=== PATIENT | female | born 1945 | race Caucasian/White ===

== ENCOUNTER 2024-03-13 08:39 | Outpatient (AMB) | payer OTHER, SELFPAY ==
[2024-03-13 08:50] VITALS: BP 122/74; PULSE 67; O2SAT 98; BMI 32.3
--- NOTE | 2024-03-13 08:50 | MHC.OFFVIS ---
Vital Signs 03/13/24 08:50 Height 5 ft Weight 165 lb 9.074 oz BMI 32.3 BP 122/74 Blood Pressure Location Lt brachial Position Sitting Pulse 67 Pulse Source Pulse Oximeter Pulse Oximetry (%) 98 Oxygen Delivery Method Room Air Intake Visit Reasons: Arthritis/cm Intake Note: Patient presents today for bone density results. She is hoping for cortisone shots for both knees. Allergies Penicillins Allergy (Mild, Verified 03/13/24 08:55) Hives codeine Adverse Reaction (Mild, Verified 03/13/24 08:55) dry heaves HPI HPI Arthritis/cm: Details: She had about 5 months of benefit with last Euflexxa injection from October. She has about 2 and half months benefit with cortisone injections. She completed her last evenity dose 1 week ago. She continues to take calcium and vitamin-D daily. Review of Systems Const All systems reviewed & are unremarkable except as noted in HPI and below Physical Exam Vital Signs: Last Vital Signs Pulse 67 03/13/24 08:50 BP 122/74 03/13/24 08:50 Pulse Ox 98 03/13/24 08:50 Oxygen Delivery Method Room Air 03/13/24 08:50 BMI result Body Mass Index 32.3 Const Other: General: Comfortable CVS: RRR Respiratory: clear to auscultation bilaterally. Good respiratory effort Skin: No lesions seen MSK: Nontender bilateral knees. Limited full flexion. Assessment & Plan Assessment & Plan (1) Osteoporosis: Comment: History of fragility fracture with L1 compression fracture 12/21/2021 on L-spine x-ray. Evenity started 02/20/2023, she received half dose 07/22/2023 as patient revealed she may have had a gum abscess during administration of 1st injection, she resumed full dose Evenity 08/21/2023 and completed 12th dose 03/22/2024. Code(s): M81.0 - Age-related osteoporosis without current pathological fracture Category: Medical Qualifiers: Osteoporosis type: age-related Presence of current pathological fracture: with current pathological fracture Encounter type: subsequent encounter Fracture healing: with routine healing Qualified Code(s): M80.00XD - Age-related osteoporosis with current pathological fracture, unspecified site, subsequent encounter for fracture with routine healing Plan: DEXA due April 2024. Ordered at [facility] [place] Continue calcium and vitamin-D supplement Labs to assess bone turnover markers, calcium, and vitamin-D level ordered (2) Other half-way (current) drug therapy: Comment: Evenity Code(s): Z79.899 - Other half-way (current) drug therapy Category: Medical Plan: See above (3) Osteoarthritis of knees, bilateral: Comment: She has had benefit of 5 months with last Euflexxa injection given 09/21/2023-10/04/2023. Previously has had multiple cortisone injections but benefit only last 2 and half months. Code(s): M17.0 - Bilateral primary osteoarthritis of knee Category: Medical Qualifiers: Osteoarthritis type: primary Qualified Code(s): M17.0 - Bilateral primary osteoarthritis of knee Plan: [place] Euflexxa bilateral knees Return to clinic in April for 3 consecutive weekly visits for Euflexxa injection She will call office if she needs appointment sooner Orders: Orders Vitamin D 25-OH Total Today M81.0 - Age-related osteoporosis without current pathological fracture, Z79.899 - Other half-way (current) drug therapy Alanine Aminotransferase Today M81.0 - Age-related osteoporosis without current pathological fracture, Z79.899 - Other half-way (current) drug therapy Alkaline Phosphatase Bone Today M80.00XD - Age-related osteoporosis with current pathological fracture, unspecified site, subsequent encounter for fracture with routine healing Calcium Today M80.00XD - Age-related osteoporosis with current pathological fracture, unspecified site, subsequent encounter for fracture with routine healing Albumin Level Today M80.00XD - Age-related osteoporosis with current pathological fracture, unspecified site, subsequent encounter for fracture with routine healing XR DEXA axial skeleton Today M81.0 - Age-related osteoporosis without current pathological fracture, Z79.899 - Other sat act instructor (current) drug therapy Collagen Type I C-Telopeptide Today M81.0 - Age-related osteoporosis without current pathological fracture, Z79.899 - Other sat act instructor (current) drug therapy Creatinine Today M81.0 - Age-related osteoporosis without current pathological fracture, Z79.899 - Other half-way (current) drug therapy Aspartate Amino Transferase Today M81.0 - Age-related osteoporosis without current pathological fracture, Z79.899 - Other sat act instructor (current) drug therapy Coding Level of Care Code Est Pt Level 3 (04589) Complex EM visit Add On G2211 Diagnoses Age-related osteoporosis with current pathological fracture with routine healing, subsequent encounter M80.00XD Osteoporosis type: age-related Presence of current pathological fracture: with current pathological fracture Encounter type: subsequent encounter Fracture healing: with routine healing Other sat act instructor (current) drug therapy Z79.899 Primary osteoarthritis of both knees M17.0 Osteoarthritis type: primary
--- OUTSIDE RECORDS SUMMARY | 2024-03-13 23:03 | XMS_ITS | Patient Health Record ---
Author Organization [facility] Address [address] [place] [address] Care Team Providers Care Packer Denture Name Role Phone Caron Macias Primary Care Provider Irina Vazquez Unavailable [phone] Allergies Allergen (clinical drug ingredient) Drug/Non Drug Allergy documented on EMR Reaction Allergy Type Onset Date Status Penicillin hives Drug Allergy Active codeine Codeine nausea Drug Allergy Active Reason For Referral No Information Medications Medication SIG (Take, Route, Frequency, Duration) Notes Start Date End Date Status Clotrimazole-Betamethasone 1-0.05 % 1 application Externally Twice a day Active Soolantra 1 % 1 application Mapping Editor ally Once a day Active Levothyroxine Sodium 50 mg 1 tablet Once a day Active Social History Tobacco Use: Social History Observation Description Date Details (start date - stop date) Never Smoker NA - NA Tobacco Use/Smoking Question Answer Notes Are you a: nonsmoker Alcohol Screen Question Answer Notes Did you have a drink containing alcohol in the p ast year? Yes Points 0 Interpretation Negative Tobacco use other than smoking: Question Answer Notes Are you an other tobacco user? No Problems Problem Type SNOMED Code ICD Code Onset Dates Problem Status W/U Status Risk Notes Problem Acquired hammer toe of right foot (9989305542646166) Other hammer toe(s) (acquired), right foot (M20.41) Active confirmed Problem Acquired hammer toe of left foot (7228980756133377) Other hammer toe(s) (acquired), left foot (M20.42) Active confirmed Problem Localized, primary osteoarthritis of the ankle and/or foot (729838477) Primary osteoarthrit is, right ankle and foot (M19.071) Active confirmed Problem Localized, primary osteoarthritis of the ankle and/or foot (760736460) Primary osteoarthrit is, left ankle and foot (M19.072) Active confirmed Plan Of Treatment No Information Insurance Providers Payer Name Payer Address Payer Phone Subscriber Number Group Number Insured Name Patient Relationship to Insured Coverage Start Date Coverage End Date Medicare National [employer] [address] [place] [address] [id number] Nita Mcfarlane Self - patient is the insured [facility] [address] [facility] [place] [address] [id number] Nita Mcfarlane Self - patient is the insured Medical (General) History Medical History History ICD Code Anxiety Arthritis Thyroid disorder Measles Mumps Chicken pox Cataracts Depression Surgical History Surgery Date(Month/Year) Tubligation 1999 cataract surgery 10/2019
== END 2024-03-13 09:37 | disposition home or self-care (01) ==
PROVIDERS: PCP Internal Medicine; Visit Provider Internal Medicine Rheumatology
DX: M80.00XD Age-related osteoporosis with current pathological fracture, unspecified site, subsequent encounter for fracture with routine healing (principal); Z79.899 Other long term (current) drug therapy; M17.0 Bilateral primary osteoarthritis of knee
CPT/HCPCS: 99213

== ENCOUNTER 2024-03-18 11:29 | Outpatient (REF) | payer MEDICARE, OTHER, SELFPAY ==
[2024-03-18 13:27] LABS: Alanine Aminotransferase 10 U/L (0-31); Albumin Level 4.3 g/dL (3.5-5.0); Aspartate Amino Transferase 22 U/L (5-31); Calcium 9.4 mg/dL (8.4-10.2); Estimated Glomerular Filt Rate > 60
[2024-03-18 13:33] LABS: Vitamin D 25-OH Total 53.2 ng/mL (>30)
[2024-03-21 14:08] LABS: Alkaline Phosphatase Bone 12.7 mcg/L (see note)
== END 2024-03-18 11:30 | disposition home or self-care (01) ==
LOC: HO.LAB 11:29
PROVIDERS: PCP Internal Medicine; Visit Provider Internal Medicine Rheumatology
DX: M80.00XD Age-related osteoporosis with current pathological fracture, unspecified site, subsequent encounter for fracture with routine healing (principal); Z79.899 Other long term (current) drug therapy
CPT/HCPCS: 36415; 82040; 82306; 82310; 82565; 84075; 84450; 84460

== ENCOUNTER 2024-04-09 12:31 | Outpatient (AMB) | payer MEDICARE, OTHER, SELFPAY ==
--- NOTE | 2024-04-09 12:43 | A.OFFVIS_ITS ---
Vital Signs 04/09/24 12:44 Height 5 ft Weight 162 lb 8 oz BMI 31.7 BP 114/74 Blood Pressure Location Lt brachial Position Sitting Pulse 69 Pulse Source Pulse Oximeter Pulse Oximetry (%) 95 Oxygen Delivery Method Room Air Intake Visit Reasons: injection-euflexxa Intake Note: Stated that she did not complete one test( has to be done 8-10 am only) Allergies Penicillins Allergy (Mild, Verified 04/09/24 12:47) Hives codeine Adverse Reaction (Mild, Verified 04/09/24 12:47) dry heaves HPI HPI injection-euflexxa: Details: Pain is uncontrolled. Review of Systems Const All systems reviewed & are unremarkable except as noted in HPI and below Physical Exam Vital Signs: Last Vital Signs Pulse 69 04/09/24 12:44 BP 114/74 04/09/24 12:44 Pulse Ox 95 04/09/24 12:44 Oxygen Delivery Method Room Air 04/09/24 12:44 BMI result Body Mass Index 31.7 Const Other: General: Comfortable CVS: RRR Respiratory: clear to auscultation bilaterally. Good respiratory effort Skin: No lesions seen MSK: Nontender bilateral knees. Limited full flexion. Office Procedures AMB Joint Injection/Aspiration Joint Injection/Aspiration Details: Euflexxa right knee Prep: site was prepped using aseptic technique Procedure: The patient tolerated the procedure well Coding 71571 - Bilateral Large Joint Procedure code (CPT) selection complete AMB Joint Injection/Aspiration Joint Injection/Aspiration Details: Euflexxa left knee Prep: site was prepped using aseptic technique Procedure: The patient tolerated the procedure well Coding 75598 - Bilateral Large Joint Procedure code (CPT) selection complete Office Meds lidocaine (PF) 10 mg/mL (1 %) injection solution Performing Provider: Maximino Kirk MD Performing Location: [facility] [place] [facility] Documented (not given) by: Maximino Kirk MD on 04/09/24 13:31 Reason Not Given: Not Medically Necessary Euflexxa 10 mg/mL (mw 2.4-3.6 million) intra-articular syringe Performing Provider: Maximino Kirk MD Performing Location: [facility] [place] [facility] Administered by: Maximino Kirk MD on 04/09/24 13:31 Dose Route Admin Location Dispensed Lot Number Expiration Date [facility] [employer] 20 mg intra-articular 2 mL X [id number] lidocaine (PF) 10 mg/mL (1 %) injection solution Performing Provider: Maximino Kirk MD Performing Location: [facility] [place] [facility] Documented (not given) by: Maximino Kirk MD on 04/09/24 13:31 Reason Not Given: Not Medically Necessary Euflexxa 10 mg/mL (mw 2.4-3.6 million) intra-articular syringe Performing Provider: Maximino Kirk MD Performing Location: [facility] [place] [facility] Administered by: Maximino Kirk MD on 04/09/24 13:31 Dose Route Admin Location Dispensed Lot Number Expiration Date [place] [employer] 20 mg intra-articular 2 mL X [id number] Assessment & Plan Assessment & Plan (1) Osteoarthritis of knees, bilateral: Comment: Pain is uncontrolled. Euflexxa bilateral knees 1. Is due today Code(s): M17.0 - Bilateral primary osteoarthritis of knee Category: Medical Qualifiers: Osteoarthritis type: primary Qualified Code(s): M17.0 - Bilateral primary osteoarthritis of knee Plan: Return to clinic next week for bilateral knee Euflexxa 2. Injection Orders: Orders AMB Joint Injection/Aspiration Today M17.0 - Bilateral primary osteoarthritis of knee AMB Joint Injection/Aspiration Today M17.0 - Bilateral primary osteoarthritis of knee Medications: New lidocaine (PF) 10 mg Infiltration ONCE 1 mL 0RF M17.0 - Bilateral primary osteoarthritis of knee Euflexxa (sodium hyaluronate (viscosup)) 20 mg (2 mL) intra-articular ONCE 2 mL 0RF NS M17.0 - Bilateral primary osteoarthritis of knee Euflexxa (sodium hyaluronate (viscosup)) 20 mg (2 mL) intra-articular ONCE 2 mL 0RF NS M17.0 - Bilateral primary osteoarthritis of knee lidocaine (PF) 10 mg Infiltration ONCE 1 mL 0RF M17.0 - Bilateral primary osteoarthritis of knee Coding Level of Care Code Est Pt Level 3 (32598) Complex EM visit Add On G2211 Diagnoses Primary osteoarthritis of both knees M17.0 Osteoarthritis type: primary CPT Codes Coding - 97942 - Bilateral Large Joint: 45236 - Bilateral Large Joint ([id number]) Coding - 81253 - Bilateral Large Joint: 20314 - Bilateral Large Joint ([id number])
[2024-04-09 12:44] VITALS: BP 114/74; PULSE 69; O2SAT 95; BMI 31.7
== END 2024-04-09 13:27 | disposition home or self-care (01) ==
PROVIDERS: PCP Internal Medicine; Visit Provider Internal Medicine Rheumatology
DX: M17.0 Bilateral primary osteoarthritis of knee (principal)
CPT/HCPCS: 20610; 99213; G2211

== ENCOUNTER → 2024-04-09 12:31 | Outpatient (BNVA) | payer MEDICARE, OTHER, SELFPAY | PROVIDERS: PCP Internal Medicine; Visit Provider Internal Medicine Rheumatology | DX: M17.0 Bilateral primary osteoarthritis of knee (principal) | CPT/HCPCS: 20610; 99212; J7323 ==

== ENCOUNTER 2024-04-16 14:30 | Outpatient (AMB) | payer MEDICARE, OTHER, SELFPAY ==
[2024-04-16 14:49] VITALS: BP 116/72; PULSE 68; O2SAT 98; BMI 31.8
--- NOTE | 2024-04-16 14:49 | A.OFFVIS_ITS ---
Vital Signs 04/16/24 14:49 Height 5 ft Weight 163 lb BMI 31.8 BP 116/72 Blood Pressure Location Lt brachial Position Sitting Pulse 68 Pulse Source Pulse Oximeter Pulse Oximetry (%) 98 Oxygen Delivery Method Room Air Intake Visit Reasons: Injection-euflexxa Intake Note: Patient presents for Euflexxa injection. Allergies Penicillins Allergy (Mild, Verified 04/16/24 14:50) Hives codeine Adverse Reaction (Mild, Verified 04/16/24 14:50) dry heaves HPI HPI Injection-euflexxa: Details: She feels well. Review of Systems Const All systems reviewed & are unremarkable except as noted in HPI and below Physical Exam Vital Signs: Last Vital Signs Pulse 68 04/16/24 14:49 BP 116/72 04/16/24 14:49 Pulse Ox 98 04/16/24 14:49 Oxygen Delivery Method Room Air 04/16/24 14:49 BMI result Body Mass Index 31.8 Const Other: General: Comfortable CVS: RRR Respiratory: clear to auscultation bilaterally. Good respiratory effort Skin: No lesions seen MSK: Nontender bilateral knees. Limited full flexion. Office Procedures AMB Joint Injection/Aspiration Joint Injection/Aspiration Details: Left knee joint Prep: site was prepped using aseptic technique Injected: Euflexxa was injected with 25 gauge 1-1/2 inch needle Procedure: The patient tolerated the procedure well. Postprocedure protocol was discussed with patient. Coding 71379 - Bilateral Large Joint Procedure code (CPT) selection complete AMB Joint Injection/Aspiration Joint Injection/Aspiration Details: Right knee joint Prep: site was prepped using aseptic technique Injected: Euflexxa was injected with 25 gauge 1-1/2 inch needle Procedure: The patient tolerated the procedure well. Postprocedure protocol was discussed with patient. Coding 54937 - Bilateral Large Joint Procedure code (CPT) selection complete Office Meds lidocaine (PF) 10 mg/mL (1 %) injection solution Performing Provider: Maximino Kirk MD Performing Location: [facility] [place] [facility] Documented (not given) by: Maximino Kirk MD on 04/16/24 16:02 Reason Not Given: Not Medically Necessary Euflexxa 10 mg/mL (mw 2.4-3.6 million) intra-articular syringe Performing Provider: Maximino Kirk MD Performing Location: [facility] [place] [facility] Administered by: Maximino Kirk MD on 04/16/24 16:02 Dose Route Admin Location Dispensed Lot Number Expiration Date [facility] [employer] 20 mg intra-articular 2 mL X [id number] lidocaine (PF) 10 mg/mL (1 %) injection solution Performing Provider: Maximino Kirk MD Performing Location: [facility] [place] [facility] Documented (not given) by: Maximino Kirk MD on 04/16/24 16:02 Reason Not Given: Not Medically Necessary Euflexxa 10 mg/mL (mw 2.4-3.6 million) intra-articular syringe Performing Provider: Maximino Kirk MD Performing Location: [facility] [place] [facility] Administered by: Maximino Kirk MD on 04/16/24 16:02 Dose Route Admin Location Dispensed Lot Number Expiration Date [facility] [employer] 20 mg intra-articular 2 mL [id number] Assessment & Plan Assessment & Plan (1) Osteoarthritis of knees, bilateral: Comment: Pain is uncontrolled. Euflexxa bilateral knees No. 2 Code(s): M17.0 - Bilateral primary osteoarthritis of knee Category: Medical Qualifiers: Osteoarthritis type: primary Qualified Code(s): M17.0 - Bilateral primary osteoarthritis of knee Plan: Return to clinic next week for bilateral knee Euflexxa No. 3 Orders: Orders AMB Joint Injection/Aspiration Today M17.0 - Bilateral primary osteoarthritis of knee AMB Joint Injection/Aspiration Today M17.0 - Bilateral primary osteoarthritis of knee Medications: New Euflexxa (sodium hyaluronate (viscosup)) 20 mg (2 mL) intra-articular ONCE 2 mL 0RF NS M17.0 - Bilateral primary osteoarthritis of knee lidocaine (PF) 10 mg Infiltration ONCE 1 mL 0RF M17.0 - Bilateral primary osteoarthritis of knee Euflexxa (sodium hyaluronate (viscosup)) 20 mg (2 mL) intra-articular ONCE 2 mL 0RF NS M17.0 - Bilateral primary osteoarthritis of knee lidocaine (PF) 10 mg Infiltration ONCE 1 mL 0RF M17.0 - Bilateral primary osteoarthritis of knee Coding Level of Care Code Est Pt Level 3 (27410) Complex EM visit Add On G2211 Diagnoses Primary osteoarthritis of both knees M17.0 Osteoarthritis type: primary CPT Codes Coding - 63624 - Bilateral Large Joint: 01361 - Bilateral Large Joint ([id number]) Coding - 10185 - Bilateral Large Joint: 13364 - Bilateral Large Joint ([id number])
== END 2024-04-16 15:25 | disposition home or self-care (01) ==
PROVIDERS: PCP Internal Medicine; Visit Provider Internal Medicine Rheumatology
DX: M17.0 Bilateral primary osteoarthritis of knee (principal)
CPT/HCPCS: 20610; 99213; G2211

== ENCOUNTER → 2024-04-16 14:30 | Outpatient (BNVA) | payer MEDICARE, OTHER, SELFPAY | PROVIDERS: PCP Internal Medicine; Visit Provider Internal Medicine Rheumatology | DX: M17.0 Bilateral primary osteoarthritis of knee (principal) | CPT/HCPCS: 20610; 99212; J7323 ==

== ENCOUNTER 2024-04-23 14:25 | Outpatient (AMB) | payer MEDICARE, OTHER, SELFPAY ==
--- NOTE | 2024-04-23 14:27 | A.OFFVIS_ITS ---
Vital Signs 04/23/24 14:29 Height 5 ft Weight 158 lb 9 oz BMI 31.0 BP 120/72 Blood Pressure Location Lt brachial Position Sitting Pulse 71 Pulse Source Pulse Oximeter Pulse Oximetry (%) 97 Oxygen Delivery Method Room Air Intake Visit Reasons: Injection-euflexxa Intake Note: Patient presents for 3rd Euflexxa injection. Allergies Penicillins Allergy (Mild, Verified 04/23/24 14:41) Hives codeine Adverse Reaction (Mild, Verified 04/23/24 14:41) dry heaves HPI HPI Injection-euflexxa: Details: She is doing well with intermittent knee pain. Review of Systems Const All systems reviewed & are unremarkable except as noted in HPI and below Physical Exam Vital Signs: Last Vital Signs Pulse 71 04/23/24 14:29 BP 120/72 04/23/24 14:29 Pulse Ox 97 04/23/24 14:29 Oxygen Delivery Method Room Air 04/23/24 14:29 BMI result Body Mass Index 31.0 Const Other: General: Comfortable Skin: No lesions seen MSK: Nontender bilateral knees. Limited full flexion. Office Procedures AMB Joint Injection/Aspiration Joint Injection/Aspiration Details: Bilateral knees Prep: site was prepped using aseptic technique Injected: Euflexxa 20 mg was injected into each knee using 25 gauge 1-1/2 inch needle Procedure: The patient tolerated the procedure well. Postprocedure protocol was discussed with patient. Coding 08449 - Bilateral Large Joint Procedure code (CPT) selection complete AMB Joint Injection/Aspiration Coding 57789 - Bilateral Large Joint Procedure code (CPT) selection complete Office Meds lidocaine (PF) 10 mg/mL (1 %) injection solution Performing Provider: Maximino Kirk MD Performing Location: [facility] [place] [facility] Documented (not given) by: Maximino Kirk MD on 04/23/24 15:14 Reason Not Given: Not Medically Necessary Euflexxa 10 mg/mL (mw 2.4-3.6 million) intra-articular syringe Performing Provider: Maximino Kirk MD Performing Location: [facility] [place] [facility] Administered by: Maximino Kirk MD on 04/23/24 15:14 Dose Route Admin Location Dispensed Lot Number Expiration Date [employer] 20 mg intra-articular 2 mL [id number] lidocaine (PF) 10 mg/mL (1 %) injection solution Performing Provider: Maximino Kirk MD Performing Location: [facility] [place] [facility] Documented (not given) by: Maximino Kirk MD on 04/23/24 15:14 Reason Not Given: Not Medically Necessary Euflexxa 10 mg/mL (mw 2.4-3.6 million) intra-articular syringe Performing Provider: Maximino Kirk MD Performing Location: [facility] [place] [facility] Administered by: Maximino Kirk MD on 04/23/24 15:14 Dose Route Admin Location Dispensed Lot Number Expiration Date [facility] [employer] 20 mg intra-articular 2 mL [id number] Assessment & Plan Assessment & Plan (1) Osteoarthritis of knees, bilateral: Comment: Pain is uncontrolled. Euflexxa bilateral knees No. 3 Code(s): M17.0 - Bilateral primary osteoarthritis of knee Category: Medical Qualifiers: Osteoarthritis type: primary Qualified Code(s): M17.0 - Bilateral primary osteoarthritis of knee Plan: Patient received bilateral Euflexxa injections to knees Requesting [facility] of [facility] bilateral [facility] (2) Osteoporosis: Comment: History of fragility fracture with L1 compression fracture 12/21/2021 on L-spine x-ray. Evenity started 02/20/2023, she received half dose 07/22/2023 as patient revealed she may have had a gum abscess during administration of 1st injection, she resumed full dose Evenity 08/21/2023 and completed 12th dose 03/22/2024. Code(s): M81.0 - Age-related osteoporosis without current pathological fracture Category: Medical Qualifiers: Osteoporosis type: age-related Presence of current pathological fracture: with current pathological fracture Encounter type: subsequent encounter Fracture healing: with routine healing Qualified Code(s): M80.00XD - Age-related osteoporosis with current pathological fracture, unspecified site, subsequent encounter for fracture with routine healing Plan: She will be having bone density next Monday She will be going to lab to have labs done to assess bone turnover markers this week Return to clinic in 1 month to discuss results and next steps with treatment for osteoporosis Orders: Orders AMB Joint Injection/Aspiration Today M17.0 - Bilateral primary osteoarthritis of knee AMB Joint Injection/Aspiration Today M17.0 - Bilateral primary osteoarthritis of knee Coding Level of Care Code Est Pt Level 3 (63932) Complex EM visit Add On G2211 Diagnoses Primary osteoarthritis of both knees M17.0 Osteoarthritis type: primary Age-related osteoporosis with current pathological fracture with routine healing, subsequent encounter M80.00XD Osteoporosis type: age-related Presence of current pathological fracture: with current pathological fracture Encounter type: subsequent encounter Fracture healing: with routine healing CPT Codes Coding - 87109 - Bilateral Large Joint: 40742 - Bilateral Large Joint ([id number]) Coding - 02339 - Bilateral Large Joint: 15821 - Bilateral Large Joint ([id number])
[2024-04-23 14:29] VITALS: BP 120/72; PULSE 71; O2SAT 97; BMI 31.0
--- OUTSIDE RECORDS SUMMARY | 2024-04-23 16:26 | XMS_ITS | Encounter Summary ---
Author Organization [facility] Address [phone] [address] [place] [address] Care Team Providers Care Digital Watch Assembler Name Role Phone Giles Cassidy MD Unavailable Maximino Kirk MD Unavailable Unavaila Melissa Bourne MD Primary Care Provider [phone] Encounter Details Date Type Department Care Team (Late st Contact Info) Description 03/23/2024 Orders Only [facility] [address] [place] [address] [place] [address] Provider, MD [facility] [place] [id number] Social History Tobacco Use Types Packs/Day Years Used Date Smoking Tobacco: Never Passive Smoke Exposure: Past Smokeless Tobacco: Never Comments:secondhand smoke at home currently-not since divorce 08/30/22 Alcohol Use Standard Drinks/Week Comments Yes 0 (1 standard drink = 0.6 oz pur e alcohol) 1-2 drinks, monthly or less Education Answer Date Recorded Are you interested in more education? Not on ghanshyam e 07/29/2022 Are you concerned about learning? Not on file 07/29/2022 No 07/29/2022 No 07/29/2022 Digital Access Answer Date Recorded No 08/29/2022 No 08/29/2022 Reliable internet access at home? Not on file 08/29/2022 Device with a working camera? Not on file Intimate Partner Violence Answer Date R ecorded Denied Basic Needs Not on file 04/28/2023 In the past 12 months have y ou been in a relationship with a person who hurts, threatens, or tries to control you? No 04/28/2023 Worried food would run out Not on file 04/28 In the past 12 months have y ou been in a relationship with a person who hurts, threatens, or tries to control you? No 04/28/2023 Sex and Gender Information Value Date Recorded Sex Assigned at Not on file Gender Identity Not on file Sexual Orientation Not on file documented as of this encounter Plan of Treatment Upcoming Encounters Date Type Department Care Team (Late st Contact Info) Description 01/30/2024 Procedure Pass [address] [place] [address] 05/06/2024 10:45 AM EST Office Visit [facility] [address] [place] [address] [place] [address] Melissa Mendoza MD [address] [place] [address] [email or web address] 07/12/2024 10:15 AM EDT Appointment [address] [place] [address] Melissa Mendoza MD [address] [place] [address] [place] [address] [email or web address] documented as of this encounter Procedures Procedure Name Priority Date/Time Associated Diagnosis Comments OUTSIDE LAB Routine 03/23/2024 12:53 PM EST documented in this encounter Results * Outside Lab (03/23/2024 12:53 PM EST) Historical Provider LAB BLOOD ORDERAB LES documented in this encounter Visit Diagnoses Not on filedocumented in this encounter Additional Health Concerns Assessment Noted Time PHQ-2 Depression Total Score: 0 07/14/19 24 1:53 PM EDT documented as of this encounter Care Teams Digital Watch Assembler Relationship Specialty Start Date End Date Melissa Mendoza MD [address] [place] [address] [place] [address] [email or web address] PCP - General Internal Medicine 06/07/23 Giles Cassidy MD [address] [place] [address] [email or web address] Insurance Assigned Provider 07/08/23 Maximino Kirk MD [address] [place] [address] Rheumatology 06/08/22 documented as of this encounter Additional Source Comments The information contained in this document represents components of the legal health record. It is not the complete legal health record.[facility]
--- OUTSIDE RECORDS SUMMARY | 2024-04-23 16:26 | XMS_ITS | Encounter Summary ---
Author Organization [facility] Address [phone] [place] [address] Care Team Providers Care Advisor Consultant Name Role Phone Margareth Hollins FULLING MACHINE OPERATOR Unavailable [phone] LindyMargareth mcgregor Nkechi FULLING MACHINE OPERATOR Primary Care Provider Giles Cassidy MD Unavailable [phone] Maximino Kirk MD Unavailable Unavaila Magalie Pearson MEDICAL HEALTH RESEARCHER Primary Care Provider Melissa Mendoza MD Primary Care Provider [phone] Encounter Details Date Type Department Care Team (Late st Contact Info) Description 02/08/2021 Procedure Pass [address] [place] [address] Social History Tobacco Use Types Packs/Day Years Used Date Smoking Tobacco: Never Smokeless Tobacco: Never Comments:secondhand smoke at home currently Sex and Gender Information Value Date Recorded Sex Assigned at Not on file Gender Identity Not on file Sexual Orientation Not on file documented as of this encounter Plan of Treatment Upcoming Encounters Date Type Department Care Team (Late st Contact Info) Description 01/30/2024 Procedure Pass [address] [place] [address] 05/06/2024 10:45 AM EST Office Visit [facility] [address] [place] [address] [place] [address] Melissa Mendoza MD [address] [address] 07/12/2024 10:15 AM EDT Appointment [address] [place] [address] Melissa Mendoza MD [address] [place] [address] [email or web address] documented as of this encounter Visit Diagnoses Not on filedocumented in this encounter Additional Health Concerns Infection Onset Date Last Indicated Resolved Time COVID-19 04/01/2023 04/01/2023 04/22/2023 1:21 AM EST Assessment Noted Time PHQ-2 Depression Total Score: 0 02/09/20 9:51 AM EST documented as of this encounter Care Teams Advisor Consultant Relationship Specialty Start Date End Date Margareth Hollins CNP [address] [place] [address] PCP - General Internal Medicine 07/03/20 12/05/22 Magalie Villatoro NP [address] [place] [address] PCP - General Family Medicine 12/06/22 06/06/23 Melissa Mendoza MD [address] [place] [address] PCP - General Internal Medicine 06/07/23 Margareth Hollins CNP [address] [place] [address] Internal Medicine 07/03/20 06/07/22 Giles Cassidy MD [address] [place] [address] [email or web address] Insurance Assigned Provider 07/08/23 Maximino Kirk MD [address] [place] [address] Rheumatology 06/08/22 documented as of this encounter Additional Source Comments The information contained in this document represents components of the legal health record. It is not the complete legal health record.[facility]
--- OUTSIDE RECORDS SUMMARY | 2024-04-23 16:26 | XMS_ITS | Clinical Summary ---
Author Organization [facility] Address [phone] [address] [place] [address] Care Team Providers Care Health Unit Supervisor Name Role Phone Giles Cassidy MD Unavailable [phone] Maximino Kirk MD Unavailable Unavaila Melissa Bourne MD Primary Care Provider [phone] Allergies Active Allergy Reactions Criticality Noted Date Comments Codeine High 08/07/2020 Lactose 12/15/2021 Penicillins Rash High 08/07/2020 Medications Medication Sig Dispensed Refills Start Date End Date Status acetaminophen (TYLENOL ARTHRITIS PAIN ORAL) Take 1 tablet by mouth 2 (two) times a day as needed. Active romosozumab-aqqg (EVENITY SUBQ) 2 shots/month 02/15/2023 Active CALCIUM ORAL Take by mouth. Active ascorbic acid (VITAMIN C ORAL) Take by mouth. Active levothyroxine (SYNTHROID, LEVOTHROID) 50 MCG tabletIndications:Hypo thyroidism, unspecified type Take 1 tablet (50 mcg total) by mouth daily. 90 tablet 3 07/25/2023 Active Active Problems Problem Noted Date Diagnosed Date Hypopigmented skin lesion 05/04/2023 Sprain of lumbosacral joint or ligament 06/11/19 Assessment & Plan (06/10/2022 1:44 PM EST): If needed we can send her to physical therapy but she already has exercises from the previous compression fracture where she went to physical therapy. She continued ducked those exercises and that should promote improvement heat or cold packs 20 minutes on 10 minutes off and we will switch out Aleve to 20 mg OTC for meloxicam 7.5 mg p.o. daily for 30 days and a refill. Age-related osteoporosis wit hout current pathological fracture 02/10/2022 Assessment & Plan (02/11/2022 5:41 AM EST): Discussed management including regular physical activity, healthy diet, vitamin D supplementation. Will check DEXA with arthritis treatment center. She continues to be mindful with walking, balance, lifting. B12 deficiency 02/10/2022 Assessment & Plan (02/11/2022 5:40 AM EST): Continue supplementation Notalgia 12/15/2021 Compression of lumbar vertebra 12/15/2021 Assessment & Plan (12/16/2021 7:20 AM EDT): New Compression Fx Extensive education done today regarding Risks, care, treatment Start PT Continue MAT prn Left sided sciatica 12/15/2021 Assessment & Plan (12/16/2021 7:17 AM EDT): New sxs since last visit MRI reviewed, no overt sig nerve compression But + edema around lumbar vertebral body Will have her start PT and see how she does Vitamin D deficiency 12/15/2021 Assessment & Plan (02/11/2022 5:40 AM EST): Check serum level Assessment & Plan (12/16/2021 7:16 AM EDT): educ regarding importance of Vitamin D and Calcium in prevention of osteoporosis Continue daily dosing Acute stress reaction 12/01/2021 Assessment & Plan (12/01/2021 6:18 PM EDT): Stressed due to getting a divorce from her Doesn't really have anyone to help her Hearing loss of right ear due to cerumen impacti on 10/30/2020 Assessment & Plan (10/30/2020 2:55 PM EDT): Otoscope introduced prior to irrigation canal completely occluded with dry cerumen. Patient's permission small tube inserted into the ear canal right-sided and application of 60 to 70 cc of water/hydrogen peroxide applied to the ear until large scales of cerumen came forth. Patient stated that her hearing improved suddenly there was less pressure within the ear. It was still feeling a little bit raw and the now cleared out ear canal did look a little bit more red than it should have. Patient instructed to take the Cortisporin attic and use it twice daily for the next 5 days. The cortisone will take down inflammation. Inflammation of right ear canal 10/30/2020 Hyperlipidemia 09/02/2020 Assessment & Plan (02/11/2022 5:40 AM EST): Continue balanced diet, regular physical activity Anxiety and depression 09/02/2020 Atrophic vaginitis 09/02/2020 Rosacea 09/02/2020 Osteoarthritis of knee 09/02/2020 Diverticulosis 09/02/2020 Other specified hypothyroidism 08/07/2020 Assessment & Plan (02/11/2022 5:40 AM EST): Check labs Lactose intolerance Resolved Problems Problem Noted Date Diagnosed Date Resolved Date Acute low back pain 12/01/2021 02/12/20 Assessment & Plan (12/01/2021 6:17 PM EDT): Unclear etiology Symptoms, including pain persisting ? Compression fx vs. Herniated disc vs. Other No overt focal neurological deficits Check xrays to r/o compression fx Trial Medrol given persistant pain Continue Tylenol Tramadol for severe pain Risks/benefits of therapy explained, including MAT and other treatment options. Patient verbalized understanding and agreement of the above Osteopenia 02/11/2022 Assessment & Plan (12/16/2021 7:19 AM EDT): Given new compression fracture Will need to check bone density Reviewed outside bone density report from 02/2020 today during visit + ostepenia when last checked educ patient re wt bearing exercise, vit d and calcium Ordered Bone density for Feb 2022 Encounters Date Type Department Care Team Description 03/23/2024 Orders Only [facility] [address] [place] [address] Dr [place]ñas, [place] [address] Jeffery Mulligan MD 03/20/2024 Orders Only [facility] [address] [place] [address] [address] [place] [address] Jeffery Mulligan MD 01/30/2024 Transcribe Orders Virtual Department [address] [place] [address] Melissa Mendoza MD Breast screening (Primary Dx) from Last 3 Months Immunizations Name Administration Dates Next Due COVID-19 (Pre-01/23) Moderna Vaccine, mRNA, PF 05/10/2021,04/12/2021 Influenza High-Dose Quadriva lent Preservative Free IM 01/07/2020 Influenza High-Dose Trivalen t Preservative Free IM 12/26/2018,12/25/2017,12/23/2016,12/17,12/15/2014 Influenza Quadrivalent Adjuv anted Preservative Free IM 01/12/2022 Influenza Quadrivalent MDCK Preservative Free IM 01/30/2023 Influenza Quadrivalent Prese rvative Free IM 02/08/2021 Influenza Trivalent Preserva tive Free IM 03/25/2013,04/12/2012 Influenza Trivalent w/ Preservative IM 1 04/03/2013,02/21/2011,04/09/2010,12/29 Influenza, Unspecified Formulation 01/12,01/30/2008,02/20/2003,03/21 Novel [id number], Injectable 03/25/2009 Pneumococcal conjugate PCV13 12/15/2014 Pneumococcal polysaccharide PPSV23 04/30/2010 Td (adult) 5 Lf Tetanus Toxo id, PF, Adsorbed 08/01/2012 Td, unspecified formulation 07/10/2002 Zoster live 01/29/2007 Zoster recombinant 04/11/2018,02/08/2018 Family History Medical History Relation Comments Heart attack Father Kidney disease Father Dementia Mother Hypertension Mother Colon cancer Nephew Liver cancer Nephew Lung cancer Nephew Arrhythmia Sister Atrial fibrillation Sister Hyperlipidemia Sister Coronary artery disease Son 1 Hypertension Son 1 Overweight Son 1 Relation Status Comments Father (Age 70) Mother (Age 96) Nephew Alive Sister Alive Son 1 Alive Son 2 Alive Social History Tobacco Use Types Packs/Day Years [...] on file Sexual Orientation Not on file Last Filed Vital Signs Vital Sign Reading Time Taken Comments Blood Pressure 122/64 07/14/2023 2:27 PM EDT Pulse 65 07/14/2023 2:27 PM EDT Temperature 36.1 ??C (96.9 ??F) 07/14/2023 2:27 PM ED T Respiratory Rate 16 05/04/2023 9:08 AM EST Oxygen Saturation 97% 07/14/2023 2:27 PM EDT Inhaled Oxygen Concentration - - Weight 72.1 kg (159 lb) 07/14/2023 2:27 PM EDT Height 159 cm (5' 2.6 ) 07/14/2023 2:27 PM EDT Body Mass Index 28.53 07/14/2023 2:27 PM EDT Plan of Treatment Upcoming Encounters Date Type Department Care Team (Late st Contact Info) Description 01/30/[address] [facility] - [address] [place] [address] 05/06/2024 10:45 AM EST Office Visit [facility] [address] [place] [address] Dr Dueñas, [place] [address] Melissa Mendoza MD [address] [place] [address], [address] [place] [address] [email or web address] 07/12/2024 10:15 AM EDT Appointment [address] Dueñas, [place] [address] Melissa Mendoza MD [address] [place] [address], [address] [place] [address] [email or web address] Health Maintenance Due Date Last Done Comments HEPATITIS B SCREENING 1963 RSV VACCINE (1 - 1-dose 75+ series) 08/12/2019 Adult Td,Tdap Booster 08/01/2022 08/01/2012, 003 INFLUENZA VACCINE (#1) 2023 , 01/30/2023, 01/12/2022, Additional history exists COVID-19 VACCINE ( season) 2023 05/10/2021, 04/12/2021 TSH LEVEL 05/04/2024 05/04/2023, 02/01, 06/15/2021, Additional history exists DEPRESSION SCREENING 07/13/2024 07/14/2023 LIPID PANEL 02/14/2027 02/14/2022, 02/01, 02/18/2021, Additional history exists PNEUMOCOCCAL VACCINES (50+ years) Completed 12/15/2014, 04/30/2010 ZOSTER VACCINES Completed 04/11/2018, 11/2017, 01/29/2007 OSTEOPOROSIS SCREENING INITIAL (ONE-TIME) Completed 02/25/2020 HEPATITIS C SCREENING Completed 05/04/2023 SMOKING STATUS SCREENING (Once After 26 Yrs) Completed 07/14/2023 HEPATITIS A VACCINES Aged Out No long er eligible based on patient's age to complete this topic HEPATITIS B VACCINES Aged Out No long er eligible based on patient's age to complete this topic HIB VACCINES Aged Out No longer eligi ble based on patient's age to complete this topic MENINGOCOCCAL VACCINES (ACWY) Aged Out No longer eligible based on patient's age to complete this topic Medical Devices Not on file Procedures Procedure Name Priority Date/Time Associated Diagnosis Comments OUTSIDE LAB Routine 03/23/2024 12:53 PM EST OUTSIDE LAB Routine 03/20/2024 12:03 PM EST HEPATITIS C ANTIBODY, QUALITATIVE Routine 05/04/2023 10:22 AM EST Need for hepatitis C screening test TSH Routine 05/04/2023 10:22 AM EST Hypothyroidism, unspecified type LIPID PANEL Routine 02/14/2022 9:47 AM EST Mixed hyperlipidemia OUTSIDE BONE DENSITY SCREENING Routine 02/25/2020 from Last 3 Months or Most Recently Relevant to Health Maintenance Results * Outside Lab (03/23/2024 12:53 PM EST) Only the most recent of2 resultswithin the time period is included. Historical Provider LAB BLOOD ORDERAB LES * Hepatitis C antibody, qualitative (05/04/2023 10:22 AM EST) HCV NON-REACTIV E NON-REACTI VE [facility] Blood 05/04/2023 10:2 2 AM EST 05/04/2023 10:29 AM EST Magalie Villatoro NP LAB BLOOD ORDERABLES [facility] [address] [place] [address] * TSH (05/04/2023 10:22 AM EST) TSH 2.35 0.27 - 4.20 uIU/mL [facility] Blood 05/04/2023 10:2 2 AM EST 05/04/2023 10:29 AM EST Magalie L [place] HEAD COOK LAB BLOOD ORDERABLES Performing Organization Address [facility]/ZIP Co de Phone Number [address] [address] * (ABNORMAL) Lipid panel (02/14/2022 9:47 AM EST) HDL 64 mg/dL [facility] Comment: ? Interpretation <40 mg/dL: Low HDL cholesterol (major risk factor for CHD) Greater than or equal to 60 mg/dL: High HDL cholesterol ( negative risk factor for CHD) HDL - cholesterol is affected by a number of factors, e.g. smoking, excerise, hormones, sex and age. CHOLESTEROL 230 0 - 240 mg/dL [facility] TRIGLYCERIDES 72 30 - 160 mg/dL [facility] LDL 152(H) 50 - 129 mg/dL [facility] Comment: LDL levels in terms of risk for coronary heart disease: <100 mg/dL: Optimal 100-129 mg/dL: Near or above optimal 130-159 mg/dL: Borderline high 160-189 mg/dL: High >190 mg/dL: Very High CARDIAC RISK RATIO 3.6 3.3 - 4.4 [facility] Blood 02/14/2022 9:47 AM EST 02/14/2022 9:51 AM EST Margareth Hollins NON LINEAR EDITOR LAB BLOOD ORDE RABLES Performing Organization Address [facility] Co de Phone Number [address] [address] * OUTSIDE BONE DENSITY SCREENING (02/25/2020) BONE DENSITY SCREENING - EXTERNAL osteopenia Historical Provider MD VALENTINO Gallegos from Last 3 Months or Most Recently Relevant to Health Maintenance Care Teams Health Unit Supervisor Relationship Specialty Start Date End Date Melissa Mendoza MD [address] [place] [address], [address] [place] [address] [email or web address] PCP - General Internal Medicine 06/07/23 Giles Cassidy MD [address] [place] [address] [email or web address] Insurance Assigned Provider 07/08/23 Maximino Kirk MD [address] [place] [address] Rheumatology 06/08/22 Additional Source Comments The information contained in this document represents components of the legal health record. It is not the complete legal health record.[facility]
--- OUTSIDE RECORDS SUMMARY | 2024-04-23 16:26 | XMS_ITS | Encounter Summary ---
Author Organization [facility] Address [phone] [facility] [address] Care Team Providers Care Anhydrous Ammonia Production Supervisor Name Role Phone LindyMargareth mcgregor Nkechi NEO Unavailable Margareth Hollins RECORDING STUDIO INTERN Primary Care Provider Giles Cassidy MD Unavailable [phone] Maximino Kirk MD Unavailable Unavaila Maglaie Pearson NP Primary Care Provider Melissa Mendoza MD Primary Care Provider [phone] Encounter Details Date Type Department Care Team (Late st Contact Info) Description 02/07/2022 Procedure Pass [address] [place] [address] Social History Tobacco Use Types Packs/Day Years Used Date Smoking Tobacco: Never Smokeless Tobacco: Never Comments:secondhand smoke at home currently Alcohol Use Standard Drinks/Week Comments Yes 0 (1 standard drink = 0.6 oz pure alcohol) 2-3 x month, 2 glasses of wine per month while out dining Sex and Gender Information Value Date Recorded Sex Assigned at Not on file Gender Identity Not on file Sexual Orientation Not on file documented as of this encounter Plan of Treatment Upcoming Encounters Date Type Department Care Team (Late st Contact Info) Description 01/30/2024 Procedure Pass [address] [place] [address] 05/06/2024 10:45 AM EST Office Visit [facility] [address] [place] [address] Dr Dueñas, [place]Z [address] Melissa Mendoza MD [address] [place] [address], [address] [place] [address] [email or web address] 07/12/2024 10:15 AM EDT Appointment [address] [place] [address] Melissa Mendoza MD [address] [place] [address], [address] [place] [address] [email or web address] documented as of this encounter Visit Diagnoses Not on filedocumented in this encounter Additional Health Concerns Infection Onset Date Last Indicated Resolved Time COVID-19 04/01/2023 04/01/2023 04/22/2023 1:21 AM EST Assessment Noted Time PHQ-2 Depression Total Score: 1 02/09/20 22 9:36 AM EST documented as of this encounter Care Teams Anhydrous Ammonia Production Supervisor Relationship Specialty Start Date End Date Margareth Hollins CNP [address] [place] [address] [email or web address] PCP - General Internal Medicine 07/03/20 12/05/22 Magalie Villatoro NP [address] [place] [address] [email or web address] PCP - General Family Medicine 12/06/22 06/06/23 Melissa Mendoza MD [address] [place] [address] [email or web address] PCP - General Internal Medicine 06/07/23 Margareth Hollins CNP [address] [place] [address] [email or web address] 07/03/20 06/07/22 Giles Cassidy MD [address] [place] [address] [email or web address] Insurance Assigned Provider 07/08/23 Maximino Kirk MD [address] [place] [address] Rheumatology 06/08/22 documented as of this encounter Additional Source Comments The information contained in this document represents components of the legal health record. It is not the complete legal health record.[facility]
--- OUTSIDE RECORDS SUMMARY | 2024-04-23 16:26 | XMS_ITS | Encounter Summary ---
Author Organization [facility] Address [phone] [facility] [place] [address] Care Team Providers Care Gas Maker Helper Name Role Phone LindyMargareth [email or web address] Nkechi ENO Unavailable Margareth Hollins STUDIO HAND Primary Care Provider Giles Cassidy MD Unavailable Maximino Kirk MD Unavailable Unavaila Magalie Pearson NP Primary Care Provider Melissa Mendoza MD Primary Care Provider [phone] Encounter Details Date Type Department Care Team (Late st Contact Info) Description 12/06/2021 Procedure Pass [address] [place] [address] Social History Tobacco Use Types Packs/Day Years [...] st Contact Info) Description 01/30/2024 Procedure Pass [address] [place] [address] 05/06/2024 10:45 AM EST Office Visit [facility] [address] [place] [address] Dr Dueñas, CARLOZ [address] Melissa Mendoza MD [address] [place] [address], [address] [place] [address] [email or web address] 07/12/2024 10:15 AM EDT Appointment [address] Dueñ[place] [address] Melissa Mendoza MD [address] [place] [address], [address] [place] [address] [email or web address] documented as of this encounter Visit Diagnoses Not on filedocumented in this encounter Additional Health Concerns Infection Onset Date Last Indicated Resolved Time COVID-19 04/01/2023 04/01/2023 04/22/2023 1:21 AM EST Assessment Noted Time PHQ-2 Depression Total Score: 0 02/09/20 9:51 AM EST documented as of this encounter Care Teams Gas Maker Helper Relationship Specialty Start Date End Date Margareth Hollins CNP [address] [place] [address] [email or web address] PCP - General Internal Medicine 07/03/20 12/05/22 Magalie Villatoro NP [address] [place] [address] [email or web address] PCP - General Family Medicine 12/06/22 06/06/23 Melissa Mendoza MD [address] [place] [address] [email or web address] PCP - General Internal Medicine 06/07/23 Margareth Hollins CNP [address] [place] [address] [email or web address] 07/03/20 06/07/22 Giles Cassidy MD [address] [place] [address] [email or web address] Insurance Assigned Provider 07/08/23 Maximino Kirk MD [address] [place] [address] Rheumatology 06/08/22 documented as of this encounter Additional Source Comments The information contained in this document represents components of the legal health record. It is not the complete legal health record.[facility]
--- OUTSIDE RECORDS SUMMARY | 2024-04-23 16:26 | XMS_ITS | Encounter Summary ---
Author Organization [facility] Address [phone] [address] [place] [address] Care Team Providers Care Software Development Coordinator Name Role Phone Giles Cassidy MD Unavailable [phone] Maximino Kirk MD Unavailable Unavaila Magalie Pearson NP Primary Care Provider [phone] Melissa Mendoza MD Primary Care Provider [phone] Encounter Details Date Type Department Care Team (Late st Contact Info) Description 12/20/2022 Procedure Pass [facility] - [address] [place] [address] Social History Tobacco Use Types Packs/Day Years Used Date Smoking Tobacco: Never Passive Smoke Exposure: Past Smokeless Tobacco: Never Comments:secondhand smoke at home currently-not since divorce 08/30/22 Alcohol Use Standard Drinks/Week Comments Yes 0 (1 standard drink = 0.6 oz pure alcohol) 2-3 x month, 2 glasses of wine per month while out dining Education Answer Date Recorded Are you interested in more education? Not on ghanshyam e 07/29/2022 Are you concerned about learning? Not on file 07/29/2022 No 07/29/2022 No 07/29/2022 Digital Access Answer Date Recorded No 08/29/2022 No 08/29/2022 Reliable internet access at home? Not on file 08/29/2022 Device with a working camera? Not on file Sex and Gender Information Value Date Recorded Sex Assigned at Not on file Gender Identity Not on file Sexual Orientation Not on file documented as of this encounter Plan of Treatment Upcoming Encounters Date Type Department Care Team (Late st Contact Info) Description 01/30/2024 Procedure Pass [address] Dueñas [place] [address] 05/06/2024 10:45 AM EST Office Visit [facility] [address] [place] [address] Dr Duñeas [place] [address] Melissa Mendoza MD [address] [place] [address] [email or web address] 07/12/2024 10:15 AM EDT Appointment [address] Dueñas [place] [address] Melissa Mendoza MD [address] [place] [address] [email or web address] documented as of this encounter Visit Diagnoses Not on filedocumented in this encounter Additional Health Concerns Infection Onset Date Last Indicated Resolved Time COVID-19 04/01/2023 04/01/2023 04/22/2023 1:21 AM EST Assessment Noted Time PHQ-2 Depression Total Score: 1 02/09/20 22 9:36 AM EST documented as of this encounter Care Teams Software Development Coordinator Relationship Specialty Start Date End Date Magalie Villatoro NP [address] [place] [place] [address] PCP - General Family Medicine 12/06/22 06/06/23 Melissa Mendoza MD [address] [place] [address] PCP - General Internal Medicine 06/07/23 Giles Cassidy MD [address] [place] [address] [email or web address] Insurance Assigned Provider 07/08/23 Maximino Kirk MD [address] [place] [address] Rheumatology 06/08/22 documented as of this encounter Additional Source Comments The information contained in this document represents components of the legal health record. It is not the complete legal health record.[facility]
--- OUTSIDE RECORDS SUMMARY | 2024-04-23 16:26 | XMS_ITS | Encounter Summary ---
Author Organization [facility] Address [phone] [facility] [place] [address] Care Team Providers Care Supervisor Coil Winding Name Role Phone LindyMargareth mcgregor Nkechi NEO Unavailable Margareth Hollins APPLIQUE SEWER Primary Care Provider Giles Cassiyd MD Unavailable [phone] Maximino Kirk MD Unavailable Unavaila Magalie Pearson MILLINERY DESIGNER Primary Care Provider Melissa Mendoza MD Primary Care Provider [phone] Encounter Details Date Type Department Care Team (Late st Contact Info) Description 02/11/2021 Ancillary Orders [facility],Outside Imaging [address] [place] [address] System, Provider Not In, [facility] [address] [address] Social History Tobacco Use Types Packs/Day Years [...] st Contact Info) Description 01/30/2024 Procedure Pass [facility] - [address] [place] [address] 05/06/2024 10:45 AM EST Office Visit [facility] [address] [place] [address] [place] [address] Melissa Mendoza MD [address] [facility], [address] [place] [address] 07/12/2024 10:15 AM EDT Appointment [address] [place] [address] Melissa Mendoza MD [address] [facility], [address] [place] [address] [email or web address] documented as of this encounter Results * Mammogram Outside (No Interpretation) (01/20/2020 12:00 AM EDT) Narrative SYSTEMGENERATED, DOCUMENTATION - 02/11/2021 11:23 AM EST This study is for PACS storage only and not for interpretation. Provider Not In System PhD IMG OUTSIDE I MAGING W/OUT INTERPRETATION * Mammogram Outside (No Interpretation) (01/29/2018 12:00 AM EDT) Narrative SYSTEMGENERATED, DOCUMENTATION - 02/11/2021 11:22 AM EST This study is for PACS storage only and not for interpretation. Provider Not In System PhD IMG OUTSIDE I MAGING W/OUT INTERPRETATION * Mammogram Outside (No Interpretation) (12/23/2016 12:00 AM EDT) Narrative SYSTEMGENERATED, DOCUMENTATION - 02/11/2021 11:21 AM EST This study is for PACS storage only and not for interpretation. Provider Not In System PhD IMG OUTSIDE I MAGING W/OUT INTERPRETATION * Mammogram Outside (No Interpretation) (04/06/2015 12:00 AM EST) Narrative SYSTEMGENERATED, DOCUMENTATION - 02/11/2021 11:21 AM EST This study is for PACS storage only and not for interpretation. Provider Not In System PhD IMG OUTSIDE I MAGING W/OUT INTERPRETATION * Mammogram Outside (No Interpretation) (04/02/2014 12:00 AM EST) Narrative SYSTEMGENERATED, DOCUMENTATION - 02/11/2021 11:20 AM EST This study is for PACS storage only and not for interpretation. Provider Not In System PhD IMG OUTSIDE I MAGING W/OUT INTERPRETATION documented in this encounter Visit Diagnoses Not on filedocumented in this encounter Additional Health Concerns Infection Onset Date Last Indicated Resolved Time COVID-19 04/01/2023 04/01/2023 04/22/2023 1:21 AM EST Assessment Noted Time PHQ-2 Depression Total Score: 0 02/09/20 9:51 AM EST documented as of this encounter Care Teams Supervisor Coil Winding Relationship Specialty Start Date End Date Margareth Hollins CNP [address] [place] [address] [email or web address] PCP - General Internal Medicine 07/03/20 12/05/22 Magalie Villatoro NP [address] [place] [address] PCP - General Family Medicine 12/06/22 06/06/23 Melissa Mendoza MD [address] [place] [address], [address] [place] [address] PCP - General Internal Medicine 06/07/23 Margareth Hollins CNP [address] [place] [address] maria Internal Medicine 07/03/20 06/07/22 Giles Cassidy MD [address] [place], [place] [email or web address] Insurance Assigned Provider 07/08/23 Maximino iKrk MD [address] [place] [address] Rheumatology 06/08/22 documented as of this encounter Additional Source Comments The information contained in this document represents components of the legal health record. It is not the complete legal health record.[facility]
--- OUTSIDE RECORDS SUMMARY | 2024-04-23 16:26 | XMS_ITS | Encounter Summary ---
Author Organization [facility] Address [email or web address] [address] Care Team Providers Care Quality Control Inspector Heading Name Role Phone Giles Cassidy MD Unavailable Maximnio Kirk MD Unavailable Unavaila Melissa Bourne MD Primary Care Provider [phone] Encounter Details Date Type Department Care Team (Late st Contact Info) Description 03/20/2024 Orders Only [facility] [address] [place] [address] [place] [address] Provider, MD Jeffery [facility] [place] [phone] Social History Tobacco Use Types Packs/Day Years [...] st Contact Info) Description 01/30/2024 Procedure Pass [address] [place] [address] 05/06/2024 10:45 AM EST Office Visit [facility] [address] [place] [address] [place] [address] Melissa Mendoza MD [address] [place] [address] [email or web address] 07/12/2024 10:15 AM EDT Appointment [address] [place] [address] Melissa Mendoza MD [address] [place] [address] [place] [address] [email or web address] documented as of this encounter Procedures Procedure Name Priority Date/Time Associated Diagnosis Comments OUTSIDE LAB Routine 03/20/2024 12:03 PM EST documented in this encounter Results * Outside Lab (03/20/2024 12:03 PM EST) Historical Provider LAB BLOOD ORDERAB LES documented in this encounter Visit Diagnoses Not on filedocumented in this encounter Additional Health Concerns Assessment Noted Time PHQ-2 Depression Total Score: 0 07/14/19 24 1:53 PM EDT documented as of this encounter Care Teams Quality Control Inspector Heading Relationship Specialty Start Date End Date Melissa Mendoza MD [address] [place] [address] [place] [address] [email or web address] PCP - General Internal Medicine 06/07/23 Giles Cassidy MD [address] [place] [address] [email or web address] Insurance Assigned Provider 07/08/23 Maximino Kirk MD [address] [place] [address] Rheumatology 06/08/22 documented as of this encounter Additional Source Comments The information contained in this document represents components of the legal health record. It is not the complete legal health record.[facility]
--- OUTSIDE RECORDS SUMMARY | 2024-04-23 16:27 | XMS_ITS | Patient Health Record ---
Author Organization [facility] Address [address] [place] [address] Care Team Providers Care Labor Mediator Name Role Phone Caron Macias Primary Care Provider Irina Vazquez Unavailable [phone] Allergies Allergen (clinical drug ingredient) Drug/Non Drug Allergy documented on EMR Reaction Allergy Type Onset Date Status Penicillin hives Drug Allergy Active codeine Codeine nausea Drug Allergy Active Reason For Referral No Information Medications Medication SIG (Take, Route, Frequency, Duration) Notes Start Date End Date Status Clotrimazole-Betamethasone 1-0.05 % 1 application Externally Twice a day Active Soolantra 1 % 1 application Radiation Control Worker ally Once a day Active Levothyroxine Sodium [...] Problem Acquired hammer toe of right foot (6525150273284558) Other hammer toe(s) (acquired), right foot (M20.41) Active confirmed Problem Acquired hammer toe of left foot (2761981124234298) Other hammer toe(s) (acquired), left foot (M20.42) Active confirmed Problem Localized, primary osteoarthritis of the ankle and/or foot (060698208) Primary osteoarthrit is, right ankle and foot (M19.071) Active confirmed Problem Localized, primary osteoarthritis of the ankle and/or foot (019932139) Primary osteoarthrit is, left ankle and foot (M19.072) Active confirmed Plan Of Treatment No Information Insurance Providers Payer Name Payer Address Payer Phone Subscriber Number Group Number Insured Name Patient Relationship to Insured Coverage Start Date Coverage End Date Medicare National Govt Sv[employer] [address] [place] [address] [id number] Nita Mcfarlane Self - patient is the insured [facility] [address] [place] [address] [phone] [id number] Nita Mcfarlane Self - patient is the insured Medical (General) History Medical History History ICD Code Anxiety Arthritis Thyroid disorder Measles Mumps Chicken pox Cataracts Depression Surgical History Surgery Date(Month/Year) Tubligation 1999 cataract surgery 10/2019
== END 2024-04-23 15:15 | disposition home or self-care (01) ==
PROVIDERS: PCP Internal Medicine; Visit Provider Internal Medicine Rheumatology
DX: M17.0 Bilateral primary osteoarthritis of knee (principal); M80.00XD Age-related osteoporosis with current pathological fracture, unspecified site, subsequent encounter for fracture with routine healing
CPT/HCPCS: 20610; 99213; G2211

== ENCOUNTER → 2024-04-23 14:25 | Outpatient (BNVA) | payer MEDICARE, OTHER, SELFPAY | PROVIDERS: PCP Internal Medicine; Visit Provider Internal Medicine Rheumatology | DX: M17.0 Bilateral primary osteoarthritis of knee (principal); M80.00XD Age-related osteoporosis with current pathological fracture, unspecified site, subsequent encounter for fracture with routine healing; X58.XXXD Exposure to other specified factors, subsequent encounter | CPT/HCPCS: 20610; 99212; J7323 ==

== ENCOUNTER 2024-04-26 09:07 | Outpatient (REF) | payer MEDICARE, OTHER, SELFPAY ==
--- NOTE | ~2024-04-26 | MM_ITS ---
EXAMINATION: DXA BONE DENSITY AXIAL HISTORY: Estrogen deficiency TECHNIQUE: Insiders S.A. Dual energy absorptiometry (DEXA) of the lumbar spine, total left hip, and femoral neck was performed. COMPARISON: There are no prior studies for comparison. FINDINGS: The bone mineral density of the lumbar spine is 1.145 with a T-score of -0.3, and a Z-score of 1.1. The bone mineral density of the left total hip is 0.868 with a T-score of -1.1, and a Z-score of 0.6. The bone mineral density of the left femoral neck is 0.799 with a T-score of -1.7, and a Z-score of 0.1. MM/XR DEXA axial skeleton IMPRESSION: Based on bone mineral density, and according to World Health Organization (WHO) criteria, the diagnosis is consistent with osteopenia. All bone density values are in grams per centimeter squared (g/cm2). Statistically, 68% of repeat scans fall within 1 SD (+/- 0.010 g/cm2 for AP spine L1-L4) and 1 SD (+/- 0.012 g/cm2 for femur total) FRAX is a trademark of the [employer] [place] for Metabolic Bone Disease, a World Health Organization (WHO) Collaborating Center. Electronically signed by: Dominick Hernandez MD 05/06/2024 11:09 AM [facility]
[2024-05-01 21:49] LABS: Collagen Type I C-Telopeptide 475 pg/mL (see note)
== END 2024-04-26 09:08 | disposition home or self-care (01) ==
LOC: HO.MAMMO 09:07
PROVIDERS: PCP Internal Medicine; Visit Provider Internal Medicine Rheumatology
DX: M81.0 Age-related osteoporosis without current pathological fracture (principal); Z79.899 Other long term (current) drug therapy
CPT/HCPCS: 36415; 77080; 82523

== ENCOUNTER → 2024-04-26 09:36 | Outpatient (BNV) | payer MEDICARE, OTHER, SELFPAY | PROVIDERS: PCP Internal Medicine; Visit Provider Radiology Diagnostic Radiology | DX: E28.39 Other primary ovarian failure (principal) | CPT/HCPCS: 77080 ==

== ENCOUNTER 2024-05-14 13:14 | Outpatient (AMB) | payer MEDICARE, OTHER, SELFPAY ==
--- NOTE | 2024-05-14 13:20 | MHC.OFFVIS ---
Vital Signs 05/14/24 13:21 Height 5 ft Weight 168 lb 4 oz BMI 32.9 BP 118/74 Blood Pressure Location Lt brachial Position Sitting Pulse 73 Pulse Source Pulse Oximeter Pulse Oximetry (%) 98 Oxygen Delivery Method Room Air Intake Visit Reasons: 1 mo follow up Intake Note: Patient presents for follow up Allergies Penicillins Allergy (Mild, Verified 05/14/24 13:24) Hives codeine Adverse Reaction (Mild, Verified 05/14/24 13:24) dry heaves HPI HPI 1 mo follow up: Details: There is reduced pain but it has not been the same responses last Euflexxa injections. She has not been as mobile due to the cold weather. Increased stiffness and pain in the morning, which improves throughout the day. Denies any new plans for dental extractions/dental procedures. She continues to take calcium carbonate 500 mg daily and vitamin D3 75 mcg daily (3000IU daily). Review of Systems Const All systems reviewed & are unremarkable except as noted in HPI and below Physical Exam Vital Signs: Last Vital Signs Pulse 73 05/14/24 13:21 BP 118/74 05/14/24 13:21 Pulse Ox 98 05/14/24 13:21 Oxygen Delivery Method Room Air 05/14/24 13:21 BMI result Body Mass Index 32.9 Const Other: General: Comfortable Skin: No lesions seen MSK: Nontender bilateral knees. Limited full flexion. Good range of motion of cervical spine. Good lumbar flexion. Assessment & Plan Assessment & Plan (1) Osteoporosis: Comment: History of fragility fracture with L1 compression fracture 12/21/2021 on L-spine x-ray. Evenity started 02/20/2023, she received half dose 07/22/2023 as patient revealed she may have had a gum abscess during administration of 1st injection, she resumed full dose Evenity 08/21/2023 and completed 12th dose 03/22/2024. She recently had a bone density scan, which shows improvement in bone density and L-spine and left femoral neck compared to bone density from 04[facility]20[facility]. Reclast is indicated to consolidate improvement from anabolic agent Romosuzumab. We discussed risks and benefits of Reclast. I plan to give Reclast injection as soon as it is approved with repeat bone density a year from when last Reclast was administered to assess benefit. Due to potency of Reclast, she may be able to have a drug holiday after 1 Reclast dose with plan to monitor osteoporosis with bone density scans every 2 years if bone density after 1st Reclast dose show significant improvement of T-scores. Recent labs reviewed with patient from 03/2024. Code(s): M81.0 - Age-related osteoporosis without current pathological fracture Category: Medical Qualifiers: Osteoporosis type: age-related Presence of current pathological fracture: with current pathological fracture Encounter type: subsequent encounter Fracture healing: with routine healing Qualified Code(s): M80.00XD - Age-related osteoporosis with current pathological fracture, unspecified site, subsequent encounter for fracture with routine healing Plan: Reclast PA. she will be scheduled for Reclast infusion as soon as it is approved Continue calcium carbonate 500 mg daily Continue vitamin-D 75 mcg daily Encouraged weight-bearing exercises/regular exercise program 30 minutes a day Return to clinic in 3 months (2) Osteoarthritis of knees, bilateral: Comment: Pain has improved after Euflexxa injections Code(s): M17.0 - Bilateral primary osteoarthritis of knee Category: Medical Qualifiers: Osteoarthritis type: primary Qualified Code(s): M17.0 - Bilateral primary osteoarthritis of knee Plan: Encouraged regular exercise program. I encouraged her to go to the senior center and participate in classes regularly. Consider walking in the mall in the winter months. PT ordered for lower extremity strengthening with myofascial release, TENs unit trial and lower extremity strengthening program Return to clinic in 4 months Orders: Orders PT Evaluation and Treatment Today M17.0 - Bilateral primary osteoarthritis of knee Coding Level of Care Code Est Pt Level 4 (03934) Complex EM visit Add On G2211 Diagnoses Age-related osteoporosis with current pathological fracture with routine healing, subsequent encounter M80.00XD Osteoporosis type: age-related Presence of current pathological fracture: with current pathological fracture Encounter type: subsequent encounter Fracture healing: with routine healing Primary osteoarthritis of both knees M17.0 Osteoarthritis type: primary
[2024-05-14 13:21] VITALS: BP 118/74; PULSE 73; O2SAT 98; BMI 32.9
== END 2024-05-14 13:52 | disposition home or self-care (01) ==
PROVIDERS: PCP Internal Medicine; Visit Provider Internal Medicine Rheumatology
DX: M80.00XD Age-related osteoporosis with current pathological fracture, unspecified site, subsequent encounter for fracture with routine healing (principal); M17.0 Bilateral primary osteoarthritis of knee
CPT/HCPCS: 99214; G2211

== ENCOUNTER → 2024-05-14 13:14 | Outpatient (BNVA) | payer MEDICARE, OTHER, SELFPAY | PROVIDERS: PCP Internal Medicine; Visit Provider Internal Medicine Rheumatology | DX: M80.00XD Age-related osteoporosis with current pathological fracture, unspecified site, subsequent encounter for fracture with routine healing (principal); M17.0 Bilateral primary osteoarthritis of knee; X58.XXXD Exposure to other specified factors, subsequent encounter | CPT/HCPCS: 99212 ==

== ENCOUNTER 2024-06-11 09:13 | Outpatient (REF) | payer MEDICARE, OTHER, SELFPAY ==
--- OUTSIDE RECORDS SUMMARY | 2024-06-11 10:18 | XMS_ITS | Patient Health Record ---
Author Organization [facility] Address [address] [place] [address] Care Team Providers Care Merchandise Pickup/Receiving Associate Name Role Phone Caron Macias Primary Care Provider Irina Vazquez Unavailable [phone] Allergies Allergen (clinical drug ingredient) Drug/Non Drug Allergy documented on EMR Reaction Allergy Type Onset Date Status Penicillin hives Drug Allergy Active codeine Codeine nausea Drug Allergy Active Reason For Referral No Information Medications Medication SIG (Take, Route, Frequency, Duration) Notes Start Date End Date Status Clotrimazole-Betamethasone 1-0.05 % 1 application Externally Twice a day Active Soolantra 1 % 1 application Air Valve Mechanic ally Once a day Active Levothyroxine Sodium [...] Problem Acquired hammer toe of right foot (9535390888247292) Other hammer toe(s) (acquired), right foot (M20.41) Active confirmed Problem Acquired hammer toe of left foot (2378628594468051) Other hammer toe(s) (acquired), left foot (M20.42) Active confirmed Problem Localized, primary osteoarthritis of the ankle and/or foot (615262677) Primary osteoarthrit is, right ankle and foot (M19.071) Active confirmed Problem Localized, primary osteoarthritis of the ankle and/or foot (457411869) Primary osteoarthrit is, left ankle and foot (M19.072) Active confirmed Plan Of Treatment No Information Insurance Providers Payer Name Payer Address Payer Phone Subscriber Number Group Number Insured Name Patient Relationship to Insured Coverage Start Date Coverage End Date Medicare National Govt Svcs Inc [address] [place] [address] [id number] Nita Mcfarlane Self - patient is the insured [facility] [address] [place] [address] [phone] [id number] Nita Mcfarlane Self - patient is the insured Medical (General) History Medical History History ICD Code Anxiety Arthritis Thyroid disorder Measles Mumps Chicken pox Cataracts Depression Surgical History Surgery Date(Month/Year) Tubligation 1999 cataract surgery 10/2019
--- OUTSIDE RECORDS SUMMARY | 2024-06-11 10:18 | XMS_ITS | Encounter Summary ---
Author Organization [facility] Address [address] [facility] [address] [place] [address] Phone Care Team Providers Care Dot Etcher Name Role Phone Giles Cassidy MD Unavailable Maximino Kirk MD Unavailable Unavaila Melissa Bourne MD Primary Care Provider [phone] Reason for Referral * MRI/CAT Scan - Closed Specialty Diagnoses / Procedures Referred By Shruthi salmon Referred To Contact Radiology Diagnoses Memory loss Procedures MRI Brain Melissa Mendoza MD [address] [place] [address], [address] [place] [address] Email: [email or web address] Referral ID Status Reason Start Date Expiration Date Visits Re quested Visits Authorized [id number] Closed 05/06/2024 05/06/2025 1 1 Reason for Visit * MRI/CAT Scan - Closed Specialty Diagnoses / Procedures Referred By Shruthi salmon Referred To Contact Radiology Diagnoses Memory loss Procedures MRI Brain Melissa Mendoza MD [address] [place] [address], [address] [place] [address] Email: [email or web address] Referral ID Status Reason Start Date Expiration Date Visits Re quested Visits Authorized [id number] Closed 05/06/2024 05/06/2025 1 1 Encounter Details Date Type Department Care Team (Late st Contact Info) Description 06/10/2024 10:22 AM EDT - 06/10/2024 11:59 PM EDT Hospital Encounter [facility], [facility] - [address] [place], [place] [address] Melissa Mendoza MD [address] [place] [address] [email or web address] Arrived Discharge Disposition: Home or Self Care Social History Tobacco Use Types Packs/Day Years Used Date Smoking Tobacco: Never Passive Smoke Exposure: Past Smokeless Tobacco: Never Comments:secondhand smoke at home currently-not since divorce 08/30/22 Alcohol Use Standard Drinks/Week Comments Yes 0 (1 standard drink = 0.6 oz pur e alcohol) 1-2 drinks, monthly or less Child or Family Care Answer Date Record ed Do you have problems with on e of the following making it difficult for you to work, study, or receive health care? No 05/06/2024 Education Answer Date Recorded Are you interested in more education? Not on ghanshyam e 07/29/2022 Are you concerned about learning? Not on file 07/29/2022 No 07/29/2022 No 07/29/2022 Food Answer Date Recorded Within the past 6 months we worried whether our food would run out before we got money to buy more. Never True 05/06/2024 Within the past 6 months the food we bought just didn't last and we didn't have enough money to get more. Never True Residential Stability Answer Date Recor ded What is your housing situation today? I have breana maldonado 05/06/2024 How many times have you move d in the past 12 months? Zero (I did not move) 05/06/2024 Paying for Meds Answer Date Recorded Do you have trouble paying for medicines? No 05/06/2024 Paying Utility Bills Answer Date Record ed Do you have trouble paying your heating or elect ricity bill? No 05/06/2024 Transportation Answer Date Recorded Has the lack of transportati on kept you from medical appointments or from getting medications? No 05/06/2024 Digital Access Answer Date Recorded No 05/06/2024 Yes 05/06/2024 Do you have reliable internet access at home? Ye s 05/06/2024 Do you have a device (e.g., phone, tablet, computer) with a working camera? Yes 05/06/2024 Intimate Partner Violence Answer Date R ecorded Denied Basic Needs Not on file 05/06/2024 In the past 12 months have y ou been in a relationship with a person who hurts, threatens, or tries to control you? No 05/06/2024 Worried food would run out Not on file 05/06 In the past 12 months have y ou been in a relationship with a person who hurts, threatens, or tries to control you? No 05/06/2024 Sex and Gender Information Value Date Recorded Sex Assigned at Not on file Gender Identity Not on file Sexual Orientation Not on file documented as of this encounter Medications at Time of Discharge Medication Sig Dispensed Refills Start Date End Date ascorbic acid (VITAMIN C ORAL) Take by mouth. CALCIUM ORAL Take by mouth. levothyroxine (SYNTHROID, LEVOTHROID) 50 MCG tabletIndications:Hypoth yroidism, unspecified type Take 1 tablet (50 mcg total) by mouth daily. 90 tablet 3 07/25/2023 Medication-Free Text EUFIXIA GEL metroNIDAZOLE (METROGEL) 0.75 % (37.5mg/5 gram) vaginal gel Place vaginally daily as needed. romosozumab-aqqg (EVENITY SUBQ) 2 shots/month 02/15/2023 documented as of this encounter Plan of Treatment Upcoming Encounters Date Type Department Care Team (Late st Contact Info) Description 01/30/2024 Procedure Pass [address] [place] [address] 07/12/2024 10:15 AM EDT Appointment [address] [place] [address] Melissa Mendoza MD [address] [place] [address], [address]nd Floor [place] [address] [email or web address] Pending Results Name Type Priority Associated Diagnoses Date /Time MRI Brain Imaging Routine Memory loss 06/10/2024 11:13 AM EDT Scheduled Orders Name Type Priority Associated Diagnoses Orde r Schedule MRI Brain Imaging Routine Memory loss As Needed for 1 Occurrences starting 06/10/2024 until 06/10/2024 documented as of this encounter Visit Diagnoses Diagnosis Memory loss documented in this encounter Additional Health Concerns Assessment Noted Time PHQ-2 Depression Total Score: 0 05/06/19 25 10:01 AM EST documented as of this encounter Care Teams Dot Etcher Relationship Specialty Start Date End Date Melissa Mendoza MD [address] [place] [address], 2nd [place] [address] [email or web address] PCP - General Internal Medicine 06/07/23 Giles Cassidy MD [address] [place] [address] [email or web address] Insurance Assigned Provider 07/08/23 Maximino Kirk MD [address] [place] [address] Rheumatology 06/08/22 documented as of this encounter Additional Source Comments The information contained in this document represents components of the legal health record. It is not the complete legal health record.[facility]
--- OUTSIDE RECORDS SUMMARY | 2024-06-11 10:18 | XMS_ITS | Encounter Summary ---
Author Organization [facility] Address [address] [place] [address] Phone Care Team Providers Care Congregational Care Pastor Name Role Phone Giles Cassidy MD Unavailable [phone] Maximino Kirk MD Unavailable Unavaila Magalie Pearson NP Primary Care Provider [phone] Melissa Mendoza MD Primary Care Provider [phone] Encounter Details Date Type Department Care Team (Late st Contact Info) Description 12/20/2022 Procedure Pass [facility] - [address] [place] [address] Social History Tobacco Use Types Packs/Day Years [...] st Contact Info) Description 01/30/2024 Procedure Pass [address] [place] [address] 07/12/2024 10:15 AM EDT Appointment [address] [place] [address] Melissa Mendoza MD [address] [place] [address] [email or web address] documented as of this encounter Visit Diagnoses Not on filedocumented in this encounter Additional Health Concerns Infection Onset Date Last Indicated Resolved Time COVID-19 04/01/2023 04/01/2023 04/22/2023 1:21 AM EST Assessment Noted Time PHQ-2 Depression Total Score: 1 02/09/20 22 9:36 AM EST documented as of this encounter Care Teams Congregational Care Pastor Relationship Specialty Start Date End Date Magalie Villatoro NP [address] [place] [address] PCP - General Family Medicine 12/06/22 06/06/23 Melissa Mendoza MD [address] [place] [address] PCP - General Internal Medicine 06/07/23 Giles Cassidy MD [address] [place] [address] Insurance Assigned Provider 07/08/23 Maximino Kirk MD [address] [place] [address] Rheumatology 06/08/22 documented as of this encounter Additional Source Comments The information contained in this document represents components of the legal health record. It is not the complete legal health record.[facility]
--- OUTSIDE RECORDS SUMMARY | 2024-06-11 10:18 | XMS_ITS | Clinical Summary ---
Author Organization [facility] Address [address] [facility] [address] [place] [address] Phone Care Team Providers Care Grain Packer Name Role Phone Giles Cassidy MD Unavailable [phone] Maximino Kirk MD Unavailable Unavaila Melissa Bourne MD Primary Care Provider Allergies Active Allergy Reactions Criticality Noted Date Comments Codeine High 08/07/2020 Lactose 12/15/2021 Penicillins Rash High 08/07/2020 Medications Medication Sig Dispensed Refills Start Date End Date Status romosozumab-aqqg (EVENITY SUBQ) 2 shots/month 02/15/2023 Active CALCIUM ORAL Take by mouth. Active ascorbic acid (VITAMIN C ORAL) Take by mouth. Acti ve levothyroxine (SYNTHROID, LEVOTHROID) 50 MCG tabletIndications:Hy pothyroidism, unspecified type Take 1 tablet (50 mcg total) by mouth daily. 90 tablet 3 07/25/2023 Active Medication-Free Text EUFIXIA GEL Act paddy metroNIDAZOLE (METROGEL) 0.75 % (37.5mg/5 gram) vaginal gel Place vaginally daily as needed. Active Active Problems Problem Noted Date Diagnosed [...] to be mindful with walking, balance, lifting. Notalgia 12/15/2021 Compression of lumbar vertebra 12/15/2021 [...] Problem Noted Date Diagnosed Date Resolved Date B12 deficiency 02/10/2022 05/06/2024 Assessment & Plan (02/11/2022 5:40 AM EST): Continue supplementation Acute low back pain 12/01/2021 02/12/20 Assessment [...] Encounters Date Type Department Care Team Description 06/10/2024 10:22 AM EDT - 06/10/2024 11:59 PM EDT Hospital Encounter [address] [place] [address] Melsisa Mendoza MD Arrived Discharge Disposition: Home or Self Care 05/22/[address] [place] [address] Pierce Jason RN 05/17/2024 9:48 AM EST - 05/17/2024 11:59 PM EST Hospital Encounter [facility] [address] [facility] [place] [address] Melissa Mendoza MD Discharge Disposition: Home or Self Care 05/06/2024 10:45 AM EST Office Visit [address] [place] [address] Melissa Mendoza MD Annual physical exam (Primary Dx); Memory loss; Pure hypercholesterolemia ; Other specified hypothyroidism; Malaise and fatigue 05/06/2024 Procedure Pass [address] [place] [address] 05/06/2024 Orders Only [address] [place] [address] Jeffery Mulligan MD 05/02/2024 Orders Only [address] [place] [address] Jeffery Mulligan MD 03/23/2024 Orders Only [address] [place] [address] Jeffery Mulligan MD 03/20/2024 Orders Only [address] [place] [address] Jeffery Mulligan MD from Last 3 Months Immunizations Name Administration Dates Next Due COVID-19 (Pre-01/23) Moderna Vaccine, mRNA, PF 05/10/2021,04/12/2021 Influenza High-Dose Quadriva lent Preservative Free IM 01/07/2020 Influenza High-Dose Trivalen t Preservative Free IM 05/06/2024,12/26/2018,12/25/2017,12/23,12/18/2015,12/15/2014 Influenza Quadrivalent Adjuv anted Preservative Free IM 01/12/2022 Influenza Quadrivalent MDCK Preservative Free IM 01/30/2023 Influenza Quadrivalent Prese rvative Free IM 02/08/2021 Influenza Trivalent Preserva tive Free IM 03/25/2013,04/12/2012 Influenza Trivalent w/ Preservative IM 1 04/03/2013,02/21/2011,04/09/2010,12/29 Influenza, Unspecified Formulation 01/12,01/30/2008,02/20/2003,03/21 Novel [id number], Injectable 03/25/2009 Pneumococcal conjugate PCV13 12/15/2014 Pneumococcal polysaccharide PPSV23 04/30/2010 Td (adult) 5 Lf Tetanus Toxo id, PF, Adsorbed 08/01/2012 Td, unspecified formulation 07/10/2002 Tdap 10/23/2023 Zoster live 01/29/2007 Zoster recombinant 04/11/2018,02/08/2018 Family [...] Passive Smoke Exposure: Past Smokeless Tobacco: Never Tobacco Cessation:Counseling Given: Not Answered Comments:secondhand smoke at home currently-not since divorce [...] your housing situation today? I have breana sing 05/06/2024 How many times have you move [...] Sign Reading Time Taken Comments Blood Pressure 138/74 05/06/2024 10:29 AM EST Pulse 71 05/06/2024 10:29 AM EST Temperature 36.1 ??C (96.9 ??F) 07/14/2023 2:27 PM ED T Respiratory Rate 16 05/04/2023 9:08 AM EST Oxygen Saturation 98% 05/06/2024 10:29 AM EST Inhaled Oxygen Concentration - - Weight 75.3 kg (166 lb) 06/05/2024 7:46 PM EST Height 152.4 cm (5') 06/05/2024 7:46 PM EST Body Mass Index 32.42 06/05/2024 7:46 PM EST Plan of Treatment Upcoming Encounters Date Type Department Care Team (Late st Contact Info) Description 01/30/2024 Procedure Pass [address] [place] [address] 07/12/2024 10:15 AM EDT Appointment [address] [place] [address] Melissa Mendoza MD [address] [place] [address], [address] [place] [address] [email or web address] Health Maintenance Due Date Last Done Comments RSV VACCINE (1 - 1-dose 75+ series) 08/12/2019 COVID-19 VACCINE (2023- season) 2023 05/10/2021, 04/12/2021 DEPRESSION SCREENING 05/06/2025 05/06/2024 TSH LEVEL 05/17/2025 05/17/2024, 04/2023, 02/14/2022, Additional history exists LIPID PANEL 05/17/2029 05/17/2024, 02/01, 02/14/2022, Additional history exists Adult Td,Tdap Booster 10/22/2033 10/23/2023 , 08/01/2012, 07/10/2002 PNEUMOCOCCAL VACCINES (50+ years) Completed 12/15/2014, 04/30/2010 ZOSTER VACCINES Completed 04/11/2018, 11/2017, 01/29/2007 HEPATITIS C SCREENING Completed 05/04/2023 INFLUENZA VACCINE Completed 05/06/2024, , 01/30/2023, Additional history exists OSTEOPOROSIS SCREENING INITIAL (ONE-TIME) Completed 05/06/2024, 02/25/2020 SMOKING STATUS SCREENING (Once After 26 Yrs) Completed 05/06/2024 HEPATITIS A VACCINES Aged Out No long er eligible based on patient's age to complete this topic HIB VACCINES Aged Out No longer eligi ble based on patient's age to complete this topic MENINGOCOCCAL VACCINES (ACWY) Aged Out No longer eligible based on patient's age to complete this topic Medical Devices Not on file Procedures Procedure Name Priority Date/Time Associated Diagnosis Comments LIPID PANEL Routine 05/17/2024 9:48 AM EST Pure hypercholesterolemia TSH WITH REFLEX Routine 05/17/2024 9:48 AM EST Other specified hypothyroidism CBC Routine 05/17/2024 9:48 AM EST Malaise and fatigue COMPREHENSIVE METABOLIC PANEL Routine 05/17/2024 9:48 AM EST Pure hypercholesterolemia SEDIMENTATION RATE (ESR) Routine 05/17/2024 9:48 AM EST Memory loss HOMOCYSTEINE Routine 05/17/2024 9:48 AM EST Memory loss METHYLMALONIC ACID, SERUM Routine 05/17/2024 9:48 AM EST Memory loss HM DEXA SCAN Routine 05/06/2024 11:49 AM EST C-PEPTIDE Routine 05/02/2024 1:17 PM EST OUTSIDE LAB Routine 03/23/2024 12:53 PM EST OUTSIDE LAB Routine 03/20/2024 12:03 PM EST HEPATITIS C ANTIBODY, QUALITATIVE Routine 05/04/2023 10:22 AM EST Need for hepatitis C screening test from Last 3 Months or Most Recently Relevant to Health Maintenance Results * (ABNORMAL) Comprehensive metabolic panel (05/17/2024 9:48 AM EST) SODIUM 140 133 - 146 mmol/L [facility] POTASSIUM 4.0 3.3 - 5.1 mmol/L [facility] CHLORIDE 104 96 - 108 mmol/L [facility] CO2 27 21 - 35 mmol/L [facility] BUN 14 6 - 19 mg/dL [facility] CREATININE 0.80 0.5 - 1.5 mg/dL [facility] GLUCOSE 101(H) 70 - 99 mg/dL [facility] ALBUMIN 4.0 3.9 - 4.8 g/dL [facility] TOTAL PROTEIN 7.3 6.5 - 8.0 g/dL [facility] CALCIUM 9.1 8.4 - 10.3 mg/dL [facility] ALKALINE PHOSPHATASE 68 39 - 117 U/L [facility] TOTAL BILIRUBIN 0.5 0.0 - 1.2 mg/dL [facility] AST 20 0 - 37 U/L [facility] ALT 7 0 - 40 U/L [facility] GLOBULIN 3.3 1 - 4.8 g/dL [facility] EGFR 75 >59 mL/min/1.7 3m2 [facility] Comment:Estimated glomerular filtration rate calculated using the CKD-EPI refit equation. ANION GAP 13 10 - 20 mmol/L [facility] Blood 05/17/2024 9:48 AM EST 05/17/2024 9:52 AM EST Melissalashell Mendoza MD LAB BLOOD ORDERABLES Performing Organization Address [facility] Co de Phone Number [address] [address] * TSH with reflex (05/17/2024 9:48 AM EST) TSH 3.08 0.27 - 4.20 uIU/mL [facility] Blood 05/17/2024 9:48 AM EST 05/17/2024 9:52 AM EST Melissalashell Mendoza MD LAB BLOOD ORDERABLES Performing Organization Address [facility] Co de Phone Number [address] [address] * Methylmalonic acid, serum (05/17/2024 9:48 AM EST) METHYLMALONIC ACID 0.27 <=0.40 nmol/mL [facility] OF LAB MED AND PAT+ Comment: (NOTE) ADDITIONAL INFORMATION This test was developed and its performance characteristics determined by [facility] in a manner consistent with CLIA requirements. This test has not been cleared or approved by the U.S. Food and Drug Administration. Blood 05/17/2024 9:48 AM EST 05/17/2024 9:52 AM EST Melissalashell Mendoza MD LAB BLOOD ORDERABLES [facility] OF LAB MED AND PAT+ [address] [place] [address] * Sedimentation rate (ESR) (05/17/2024 9:48 AM EST) ESR 14 0 - 30 mm/h [facility] Blood 05/17/2024 9:48 AM EST 05/17/2024 9:52 AM EST Melissalashell Mendoza MD LAB BLOOD ORDERABLES Performing Organization Address City/[facility] Co de Phone Number [facility] [address] [place] [address] * (ABNORMAL) CBC (05/17/2024 9:48 AM EST) WBC 4.85 4.00 - 11.00 K/uL [facility] RBC 4.38 4.00 - 5.20 M/uL [facility] HGB 12.9 12.0 - 16.0 g/dL [facility] HCT 40.9 36.0 - 46.0 % [facility] PLT 213 150 - 450 K/uL [facility] MCV 93.4 80.0 - 100.0 fL [facility] MCH 29.5 27.0 - 31.0 pg [facility] MCHC 31.5(L) 32.0 - 36.0 g/dL [facility] RDW 13.1 11.5 - 14.5 % [facility] MPV 11.0 8.4 - 12.0 fL [facility] NRBC 0.00 0.00 /100 WBCs [facility] ABSOLUTE NRBC 0.00 0.00 K/uL [facility] Blood 05/17/2024 9:48 AM EST 05/17/2024 9:52 AM EST Melissa A Reji NOONAN LAB BLOOD ORDERABLES [facility] [address] [place] [address] * Homocysteine (05/17/2024 9:48 AM EST) HOMOCYSTEINE, TOTAL 12.5 0 - 14.2 umol/L [facility] Blood 05/17/2024 9:48 AM EST 05/17/2024 9:52 AM EST Melissa A Reji NOONAN LAB BLOOD ORDERABLES Performing Organization Address [facility] Co de Phone Number [address] [address] * (ABNORMAL) Lipid panel (05/17/2024 9:48 AM EST) HDL 61 mg/dL [facility] Comment: ? Interpretation <40 mg/dL: Low HDL cholesterol (major risk factor for CHD) Greater than or equal to 60 mg/dL: High HDL cholesterol ( negative risk factor for CHD) HDL - cholesterol is affected by a number of factors, e.g. smoking, excerise, hormones, sex and age. CHOLESTEROL 211 0 - 240 mg/dL [facility] TRIGLYCERIDES 75 30 - 160 mg/dL [facility] LDL 135(H) 50 - 129 mg/dL [facility] Comment: LDL levels in terms of risk for coronary heart disease: <100 mg/dL: Optimal 100-129 mg/dL: Near or above optimal 130-159 mg/dL: Borderline high 160-189 mg/dL: High >190 mg/dL: Very High CARDIAC RISK RATIO 3.5 3.3 - 4.4 C [facility] Blood 05/17/2024 9:48 AM EST 05/17/2024 9:51 AM EST Melissa A Reji NOONAN LAB BLOOD ORDERABLES [address] [address] * HM DEXA SCAN (05/06/2024 11:49 AM EST) Historical Provider MD AVELAR MAINTENANC E * C-peptide (05/02/2024 1:17 PM EST) Historical Provider LAB BLOOD ORDERAB LES * Outside Lab (03/23/2024 12:53 PM EST) Only the most recent of2 resultswithin the time period is included. Historical Provider LAB BLOOD ORDERAB LES * Hepatitis C antibody, qualitative (05/04/2023 10:22 AM EST) HCV NON-REACTIV E NON-REACTI VE [facility] Blood 05/04/2023 10:2 2 AM EST 05/04/2023 10:29 AM EST Magalie Villatoro NP LAB BLOOD ORDERABLES Performing Organization Address [facility]/ZIP Co de Phone Number [address] [address] from Last 3 Months or Most Recently Relevant to Health Maintenance Care Teams Grain Packer Relationship Specialty Start Date End Date Melissa Mendoza MD [address] [place] [address], [address] [place] [address] [email or web address] PCP - General Internal Medicine 06/07/23 Giles Cassidy MD [address] [place] [address] [email or web address] Insurance Assigned Provider 07/08/23 Maximino Kirk MD [address] [place] [address] Rheumatology 06/08/22 Additional Source Comments The information contained in this document represents components of the legal health record. It is not the complete legal health record.[facility]
--- OUTSIDE RECORDS SUMMARY | 2024-06-11 10:18 | XMS_ITS | Encounter Summary ---
Author Organization [facility] Address [address] [facility] [address] [place] [address] Phone Care Team Providers Care Pain Management Specialist Name Role Phone LindyMargareth [email or web address] Nkechi LARSON Unavailable Margareth Hollins BOOTH MANAGER Primary Care Provider Giles Cassidy MD Unavailable [phone] Maximino Kirk MD Unavailable Unavaila Magalie Pearson NP Primary Care Provider Melissa Mendoza MD Primary Care Provider Encounter Details Date Type Department Care Team (Late st Contact Info) Description 12/06/2021 Procedure Pass [address] [place] [address] Social History Tobacco Use Types Packs/Day Years [...] (Late st Contact Info) Description 01/30/[address] [place] [address] 07/12/2024 10:15 AM EDT Appointment [address] [place] [address] Melissa Mendoza MD [address] [place] [address], [address] [place], [place] [email or web address] documented as of this encounter Visit Diagnoses Not on filedocumented in this encounter Additional Health Concerns Infection Onset Date Last Indicated Resolved Time COVID-19 04/01/2023 04/01/2023 04/22/2023 1:21 AM EST Assessment Noted Time PHQ-2 Depression Total Score: 0 02/09/20 9:51 AM EST documented as of this encounter Care Teams Pain Management Specialist Relationship Specialty Start Date End Date Margareth Hollins CNP [address] [place] [phone] [email or web address] PCP - General Internal Medicine 07/03/20 12/05/22 Magalie Villatoro NP [address] [place] [address] [email or web address] PCP - General Family Medicine 12/06/22 06/06/23 Melissa Mendoza MD [address] [place] [address], [address] [place] [address] [email or web address] PCP - General Internal Medicine 06/07/23 Margareth Hollins CNP [address] [place] [address] [email or web address] 07/03/20 06/07/22 Giles Cassidy MD [address] [place] [address] [email or web address] Insurance Assigned Provider 07/08/23 Maximino Kirk MD [address] [place] [address] Rheumatology 06/08/22 documented as of this encounter Additional Source Comments The information contained in this document represents components of the legal health record. It is not the complete legal health record.[facility]
--- OUTSIDE RECORDS SUMMARY | 2024-06-11 10:18 | XMS_ITS | Encounter Summary ---
Author Organization [facility] Address [address] [place] [address] Phone Care Team Providers Care Paint Trimmer Pipe Bowls Name Role Phone Giles Cassidy MD Unavailable [phone] Maximino Kirk MD Unavailable Unavaila Melissa Bourne MD Primary Care Provider [phone] Encounter Details Date Type Department Care Team (Late st Contact Info) Description 05/02/2024 Orders Only [facility] [address] [place] [address] Provider, MD Jeffery [address] [place] [address] Social History Tobacco Use Types Packs/Day Years [...] st Contact Info) Description 01/30/2024 Procedure Pass [address] [place] [address] 07/12/2024 10:15 AM EDT Appointment [address] [place] [address] Melissa Mendoza MD [address] [place] [address], 2nd Floor [place]LOZ [place] [address] [email or web address] documented as of this encounter Procedures Procedure Name Priority Date/Time Associated Diagnosis Comments C-PEPTIDE Routine 05/02/2024 1:17 PM EST documented in this encounter Results * C-peptide (05/02/2024 1:17 PM EST) Historical Provider LAB BLOOD ORDERAB LES documented in this encounter Visit Diagnoses Not on filedocumented in this encounter Additional Health Concerns Assessment Noted Time PHQ-2 Depression Total Score: 0 07/14/19 24 1:53 PM EDT documented as of this encounter Care Teams Paint Trimmer Pipe Bowls Relationship Specialty Start Date End Date Melissa Mendoza MD [address] [place] [address], 2nd [place] [address] [email or web address] PCP - General Internal Medicine 06/07/23 Giles Cassidy MD [address] [place] [address] [email or web address] Insurance Assigned Provider 07/08/23 Maximino Kirk MD [address] [place] [address] Rheumatology 06/08/22 documented as of this encounter Additional Source Comments The information contained in this document represents components of the legal health record. It is not the complete legal health record.[facility]
--- OUTSIDE RECORDS SUMMARY | 2024-06-11 10:18 | XMS_ITS | Encounter Summary ---
Author Organization [facility] Address [address] [facility] [address] [place] [address] Phone Care Team Providers Care Dyer And Washer Name Role Phone LindyMargareth [email or web address] Nkechi LARSON Unavailable Margareth Hollins WEAVER AXMINSTER Primary Care Provider Giles Cassidy MD Unavailable [phone] Maximino Kirk MD Unavailable Unavaila Magalie Pearson NP Primary Care Provider Melissa Mendoza MD Primary Care Provider Encounter Details Date Type Department Care Team (Late st Contact Info) Description 02/07/2022 Procedure Pass [address] [place] [address] Social History Tobacco Use Types Packs/Day Years [...] st Contact Info) Description 01/30/2024 Procedure Pass [address] [place] [address] 07/12/2024 10:15 AM EDT Appointment [address] [place] [address] Melissa Mendoza MD [address] [place] [address], [address]nd [place], [place] [email or web address] documented as of this encounter Visit Diagnoses Not on filedocumented in this encounter Additional Health Concerns Infection Onset Date Last Indicated Resolved Time COVID-19 04/01/2023 04/01/2023 04/22/2023 1:21 AM EST Assessment Noted Time PHQ-2 Depression Total Score: 1 02/09/20 9:36 AM EST documented as of this encounter Care Teams Dyer And Washer Relationship Specialty Start Date End Date Margareth Hollins CNP [address] [place] [address] [email or web address] PCP - General Internal Medicine 07/03/20 12/05/22 Magalie Villatoor NP [address] [place] [address] [email or web address] PCP - General Family Medicine 12/06/22 06/06/23 Melissa Mendoza MD [address] [place] [address], [address] [place], [place] [email or web address] PCP - General Internal Medicine 06/07/23 Margareth Hollins CNP [address] [place] [address] [email or web address] Internal Medicine 07/03/20 06/07/22 Giles Cassidy MD [address] [place] [address] [email or web address] Insurance Assigned Provider 07/08/23 Maximino Kirk MD [address] [place] [address] Rheumatology 06/08/22 documented as of this encounter Additional Source Comments The information contained in this document represents components of the legal health record. It is not the complete legal health record.[facility]
--- OUTSIDE RECORDS SUMMARY | 2024-06-11 10:18 | XMS_ITS | Encounter Summary ---
Author Organization [facility] Address [address] [place] [address] Phone Care Team Providers Care Biological Lab Technician Name Role Phone Giles Cassidy MD Unavailable [phone] Maximino Kirk MD Unavailable Unavaila Melissa Bourne MD Primary Care Provider [phone] Encounter Details Date Type Department Care Team (Late st Contact Info) Description 05/06/2024 Orders Only [facility] [address] [place] [address] Provider, MD Jeffery [address] [place] [address] Social History Tobacco Use Types Packs/Day [...] st Contact Info) Description 01/30/2024 Procedure Pass [address] [place] [address] 07/12/2024 10:15 AM EDT Appointment [address] [place] [address] Melissa Mendoza MD [address] [place] [address], 2nd Floor [place] [address] documented as of this encounter Procedures Procedure Name Priority Date/Time Associated Diagnosis Comments DEXA SCAN Routine 05/06/2024 11:49 AM EST documented in this encounter Results * HM DEXA SCAN (05/06/2024 11:49 AM EST) Historical Provider MD VALENTINO Gallegos documented in this encounter Visit Diagnoses Not on filedocumented in this encounter Additional Health Concerns Assessment Noted Time PHQ-2 Depression Total Score: 0 05/06/19 25 10:01 AM EST documented as of this encounter Care Teams Biological Lab Technician Relationship Specialty Start Date End Date Melissa Mendoza MD [address] [place] [address], 2nd [place] [address] [email or web address] PCP - General Internal Medicine 06/07/23 Giles Cassidy MD [address] [place] [phone] [email or web address] Insurance Assigned Provider 07/08/23 Maximino Kirk MD [address] [place] [address] Rheumatology 06/08/22 documented as of this encounter Additional Source Comments The information contained in this document represents components of the legal health record. It is not the complete legal health record.[facility]
--- OUTSIDE RECORDS SUMMARY | 2024-06-11 10:18 | XMS_ITS | Encounter Summary ---
Author Organization [facility] Address [address] [place] [address] Phone Care Team Providers Care Text Transcriber Name Role Phone Giles Cassidy MD Unavailable [phone] Maximino Kirk MD Unavailable Unavaila Melissa Bourne MD Primary Care Provider [phone] Encounter Details Date Type Department Care Team (Late st Contact Info) Description 05/06/2024 Procedure Pass [facility], [address] [place] [address] Social History Tobacco Use Types Packs/Day Years [...] st Contact Info) Description 01/30/2024 Procedure Pass [address] [place] [address] 07/12/2024 10:15 AM EDT Appointment [address] [place] [address] Melissa Mendoza MD [address] [place] [address], 2nd Floor [place] [address] documented as of this encounter Visit Diagnoses Not on filedocumented in this encounter Additional Health Concerns Assessment Noted Time PHQ-2 Depression Total Score: 0 05/06/19 25 10:01 AM EST documented as of this encounter Care Teams Text Transcriber Relationship Specialty Start Date End Date Melissa Mendoza MD [address] [place] [address], 2nd [place] [address] PCP - General Internal Medicine 06/07/23 Giles Cassidy MD [address] [phone] [email or web address] Insurance Assigned Provider 07/08/23 Maximino Kirk MD [address] [place] [address] Rheumatology 06/08/22 documented as of this encounter Additional Source Comments The information contained in this document represents components of the legal health record. It is not the complete legal health record.[facility]
--- OUTSIDE RECORDS SUMMARY | 2024-06-11 10:20 | XMS_ITS | Encounter Summary ---
Author Organization [facility] Address [address] [facility] [address] [place] [address] Phone Care Team Providers Care Collections Assistant Name Role Phone Giles Cassidy MD Unavailable [phone] Maximino Kirk MD Unavailable Unavaila Melissa Bourne MD Primary Care Provider [phone] Encounter Details Date Type Department Care Team (Late st Contact Info) Description 05/22/2024 Telephone [facility] [address] [place] [address] Dr [place] [address] Pierce Jason RN [address] [place] [address] [email or web address] Social History Tobacco Use Types Packs/Day Years [...] on file documented as of this encounter Progress Notes * Pierce Jason RN - 05/22/2024 8:27 AM EST Spoke with Nita and reviewed PCP note. She was appreciative and notes that MRI is scheduled 06/10 * Pierce Jason RN - 05/22/2024 8:25 AM EST Images from the original note were not included. Mendoza, Melissa A, MD [facility] Inform her blood work normal. Cholesterol better than last year. I ordered MRI brain due to memory problems and she can go ahead and set that up documented in this encounter Plan of Treatment Upcoming Encounters Date Type Department Care Team (Late st Contact Info) Description 01/30/2024 Procedure Pass [address] [place] [address] 07/12/2024 10:15 AM EDT Appointment [address] [place] [address] Melissa Mendoza MD [address] [place] [address] [email or web address] documented as of this encounter Visit Diagnoses Not on filedocumented in this encounter Additional Health Concerns Assessment Noted Time PHQ-2 Depression Total Score: 0 05/06/19 25 10:01 AM EST documented as of this encounter Care Teams Collections Assistant Relationship Specialty Start Date End Date Melissa Mendoza MD [address] [place] [address] [email or web address] PCP - General Internal Medicine 06/07/23 Giles Cassidy MD [address] [place] [address] Insurance Assigned Provider 07/08/23 Maximino Kirk MD [address] [place] [address] Rheumatology 06/08/22 documented as of this encounter Additional Source Comments The information contained in this document represents components of the legal health record. It is not the complete legal health record.[facility]
--- OUTSIDE RECORDS SUMMARY | 2024-06-11 10:20 | XMS_ITS | Encounter Summary ---
Author Organization [facility] Address [address] [address] Phone Care Team Providers Care Pricing Associate Name Role Phone LindyMargareth [email or web address] CLINICAL LIAISON Unavailable Gurvinder Margareth Nkechi CLINICAL LIAISON Primary Care Provider Giles Cassidy MD Unavailable Maximino Kirk MD Unavailable Unavaila Magalie Pearson NP Primary Care Provider Melissa Mendoza MD Primary Care Provider [phone] Encounter Details Date Type Department Care Team (Late st Contact Info) Description 02/08/2021 Procedure Pass [address] [place] [address] Social History Tobacco Use Types Packs/Day Years [...] st Contact Info) Description 01/30/2024 Procedure Pass [address] [place] [address] 07/12/2024 10:15 AM EDT Appointment [address] [place] [address] Melissa Mendoza MD [address] [place] [address] [email or web address] documented as of this encounter Visit Diagnoses Not on filedocumented in this encounter Additional Health Concerns Infection Onset Date Last Indicated Resolved Time COVID-19 04/01/2023 04/01/2023 04/22/2023 1:21 AM EST Assessment Noted Time PHQ-2 Depression Total Score: 0 02/09/20 9:51 AM EST documented as of this encounter Care Teams Pricing Associate Relationship Specialty Start Date End Date Margareth Hollins CNP [address] [place] [address] [email or web address] PCP - General Internal Medicine 07/03/20 12/05/22 Magalie Villatoro NP [address] [place] [address] [email or web address] PCP - General Family Medicine 12/06/22 06/06/23 Melissa Mendoza MD [address] [place] [address] [email or web address] PCP - General Internal Medicine 06/07/23 Margareth Hollins CNP [address] [place] [address] maria Internal Medicine 07/03/20 06/07/22 Giles Cassidy MD [address] [place] [address] Insurance Assigned Provider 07/08/23 Maximino Kirk MD [address] [place] [address] Rheumatology 06/08/22 documented as of this encounter Additional Source Comments The information contained in this document represents components of the legal health record. It is not the complete legal health record.[facility]
--- OUTSIDE RECORDS SUMMARY | 2024-06-11 10:20 | XMS_ITS | Encounter Summary ---
Author Organization [facility] Address [address] [place] [address] [place] [address] Phone Care Team Providers Care Sales Representative Cash Registers Name Role Phone LindyMargareth [email or web address] Nkechi LASRON Unavailable Margareth Hollins HEAT [employer]ENT [employer]CRAFT MECHANIC Primary Care Provider Giles Cassidy MD Unavailable [phone] Maximino Kirk MD Unavailable Unavaila Magalie Pearson NP Primary Care Provider Melissa Mendoza MD Primary Care Provider Encounter Details Date Type Department Care Team (Late st Contact Info) Description 02/11/2021 Ancillary Orders [facility]Outside Imaging [address] [place] [address] System, Provider Not In, PhD [address] [address] Social History Tobacco Use Types Packs/Day Years [...] st Contact Info) Description 01/30/2024 Procedure Pass [address] [place] [address] 07/12/2024 10:15 AM EDT Appointment [address] [place] [address] Melissa Mendoza MD [address] [place] [address], 2nd [place] [address] [email or web address] documented as of this encounter Results * [...] documented as of this encounter Care Teams Sales Representative Cash Registers Relationship Specialty Start Date End Date Margareth Hollins CNP [address] [place] [address] [email or web address] PCP - General Internal Medicine 07/03/20 12/05/22 Magalie Villatoro NP [address] [place] [address] [email or web address] PCP - General Family Medicine 12/06/22 06/06/23 Melissa Mendoza MD [address] [place] [address], 2nd [place] [address] [email or web address] PCP - General Internal Medicine 06/07/23 Margareth Hollins CNP [address] [place] [address] [email or web address] 07/03/20 06/07/22 Giles Cassidy MD [address] [place] [address] [email or web address] Insurance Assigned Provider 07/08/23 Maximino Kirk MD [address] [place] [address] Rheumatology 06/08/22 documented as of this encounter Additional Source Comments The information contained in this document represents components of the legal health record. It is not the complete legal health record.[facility]
--- OUTSIDE RECORDS SUMMARY | 2024-06-11 10:20 | XMS_ITS | Encounter Summary ---
Author Organization [facility] Address [address] [address] [place] [address] Phone Care Team Providers Care Desktop Administrator Name Role Phone Giles Cassidy MD Unavailable [phone] Maximino Kirk MD Unavailable Unavaila ble Melissa Mendoza MD Primary Care Provider [phone] Encounter Details Date Type Department Care Team (Late st Contact Info) Description 05/17/2024 9:48 AM EST - 05/17/2024 11:59 PM EST Hospital Encounter [facility] [address] [place] [address] Melissa Mendoza MD [address] [facility], 2nd [place] [address] [email or web address] Discharge Disposition: Home or Self Care Social [...] st Contact Info) Description 01/30/20[address] Procedure [address] [place] [address] 07/12/2024 10:15 AM EDT Appointment [address] [place] [address] Melissa Mendoza MD [address] [place] [address], 2nd [place] [address] [email or web address] documented as of this encounter Procedures Procedure Name Priority Date/Time Associated Diagnosis Comments COMPREHENSIVE METABOLIC PANEL Routine 05/17/2024 9:48 AM EST Pure hypercholesterolemia TSH WITH REFLEX Routine 05/17/2024 9:48 AM EST Other specified hypothyroidism METHYLMALONIC ACID, SERUM Routine 05/17/2024 9:48 AM EST Memory loss SEDIMENTATION RATE (ESR) Routine 05/17/2024 9:48 AM EST Memory loss CBC Routine 05/17/2024 9:48 AM EST Malaise and fatigue HOMOCYSTEINE Routine 05/17/2024 9:48 AM EST Memory loss LIPID PANEL Routine 05/17/2024 9:48 AM EST Pure hypercholesterolemia documented in this encounter Results * (ABNORMAL) Lipid panel (05/17/2024 9:48 AM EST) HDL 61 mg/dL [facility] Comment: ? Interpretation <40 mg/dL: Low HDL cholesterol (major risk factor for CHD) Greater than or equal to 60 mg/dL: High HDL cholesterol ( negative risk factor for CHD) HDL - cholesterol is affected by a number of factors, e.g. smoking, excerise, hormones, sex and age. CHOLESTEROL 211 0 - 240 mg/dL [facility] TRIGLYCERIDES 75 30 - 160 mg/dL [facility] LDL 135(H) 50 - 129 mg/dL [facility] Comment: LDL levels in terms of risk for coronary heart disease: <100 mg/dL: Optimal 100-129 mg/dL: Near or above optimal 130-159 mg/dL: Borderline high 160-189 mg/dL: High >190 mg/dL: Very High CARDIAC RISK RATIO 3.5 3.3 - 4.4 C [facility] Blood 05/17/2024 9:48 AM EST 05/17/2024 9:51 AM EST Melissa A Reji NOONAN LAB BLOOD ORDERABLES Performing Organization Address [facility] Co de Phone Number [address] [address] * TSH with reflex (05/17/2024 9:48 AM EST) TSH 3.08 0.27 - 4.20 uIU/mL [facility] Blood 05/17/2024 9:48 AM EST 05/17/2024 9:52 AM EST Melissa A Reji NOONAN LAB BLOOD ORDERABLES Performing Organization Address [facility] Co de Phone Number [address] [address] * (ABNORMAL) CBC (05/17/2024 9:48 AM EST) WBC 4.85 4.00 - 11.00 K/uL [facility] RBC 4.38 4.00 - 5.20 M/uL [facility] HGB 12.9 12.0 - 16.0 g/dL [facility] HCT 40.9 36.0 - 46.0 % [facility] PLT 213 150 - 450 K/uL [facility] MCV 93.4 80.0 - 100.0 fL [facility] MCH 29.5 27.0 - 31.0 pg [facility] MCHC 31.5(L) 32.0 - 36.0 g/dL [facility] RDW 13.1 11.5 - 14.5 % [facility] MPV 11.0 8.4 - 12.0 fL [facility] NRBC 0.00 0.00 /100 WBCs [facility] ABSOLUTE NRBC 0.00 0.00 K/uL [facility] Blood 05/17/2024 9:48 AM EST 05/17/2024 9:52 AM EST Melissa Lisset Mendoza MD LAB BLOOD ORDERABLES Performing Organization Address City/State/[facility] Co de Phone Number [facility] [address] [place] [address] * (ABNORMAL) Comprehensive metabolic panel (05/17/2024 9:48 AM EST) SODIUM 140 133 - 146 mmol/L [facility] POTASSIUM 4.0 3.3 - 5.1 mmol/L [facility] CHLORIDE 104 96 - 108 mmol/L [facility] CO2 27 21 - 35 mmol/L [facility] BUN 14 6 - 19 mg/dL [facility] CREATININE 0.80 0.5 - 1.5 mg/dL [facility] GLUCOSE 101(H) 70 - 99 mg/dL [facility] ALBUMIN 4.0 3.9 - 4.8 g/dL [facility] TOTAL PROTEIN 7.3 6.5 - 8.0 g/dL [facility] CALCIUM 9.1 8.4 - 10.3 mg/dL [facility] ALKALINE PHOSPHATASE 68 39 - 117 U/L [facility] TOTAL BILIRUBIN 0.5 0.0 - 1.2 mg/dL [facility] AST 20 0 - 37 U/L [facility] ALT 7 0 - 40 U/L [facility] GLOBULIN 3.3 1 - 4.8 g/dL [facility] EGFR 75 >59 mL/min/1.7 3m2 [facility] Comment:Estimated glomerular filtration rate calculated using the CKD-EPI refit equation. ANION GAP 13 10 - 20 mmol/L [facility] Blood 05/17/2024 9:48 AM EST 05/17/2024 9:52 AM EST Melissa A Reji NOONAN LAB BLOOD ORDERABLES Performing Organization Address [facility] de Phone Number [address] [address] * Sedimentation rate (ESR) (05/17/2024 9:48 AM EST) ESR 14 0 - 30 mm/h [facility] Blood 05/17/2024 9:48 AM EST 05/17/2024 9:52 AM EST Melissa A Reji NOONAN LAB BLOOD ORDERABLES Performing Organization Address [facility] Phone Number [address] [address] * Homocysteine (05/17/2024 9:48 AM EST) HOMOCYSTEINE, TOTAL 12.5 0 - 14.2 umol/L [facility] Blood 05/17/2024 9:48 AM EST 05/17/2024 9:52 AM EST Melissa A Reji NOONAN LAB BLOOD ORDERABLES Performing Organization Address [facility] de Phone Number [address] [address] * Methylmalonic acid, serum (05/17/2024 9:48 AM EST) METHYLMALONIC ACID 0.27 <=0.40 nmol/mL [facility] DPT OF LAB MED AND PAT+ Comment: (NOTE) ADDITIONAL INFORMATION This test was developed and its performance characteristics determined by [facility] in a manner consistent with CLIA requirements. This test has not been cleared or approved by the U.S. Food and Drug Administration. Blood 05/17/2024 9:48 AM EST 05/17/2024 9:52 AM EST Melissa Mendoza MD LAB BLOOD ORDERABLES [facility] DPT OF LAB MED AND PAT+ [address] [place] [address] documented in this encounter Visit Diagnoses Diagnosis Memory loss Pure hypercholesterolemia Malaise and fatigue Other specified hypothyroidism documented in this encounter Additional Health Concerns Assessment Noted Time PHQ-2 Depression Total Score: 0 05/06/19 25 10:01 AM EST documented as of this encounter Care Teams Desktop Administrator Relationship Specialty Start Date End Date Melissa Mendoza MD [address] [place] [address], 2nd [place] [address] PCP - General Internal Medicine 06/07/23 Giles Cassidy MD [address] [place] [address] Insurance Assigned Provider 07/08/23 Maximino Kirk MD [address] [place] [address] Rheumatology 06/08/22 documented as of this encounter Additional Source Comments The information contained in this document represents components of the legal health record. It is not the complete legal health record.[facility]
--- OUTSIDE RECORDS SUMMARY | 2024-06-11 10:20 | XMS_ITS | Encounter Summary ---
Author Organization [facility] Address [address] [facility] [address] [place] [phone] Phone Care Team Providers Care Farm Service Adviser Name Role Phone Giles Cassidy MD Unavailable [phone] Maximino Kirk MD Unavailable Unavaila [facility] Magalie Villatoro NP Primary Care Provider [phone] Melissa Mendoza MD Primary Care Provider [phone] Encounter Details Date Type Department Care Team (Latest Contact Info) Description 12/20/2022 Transcribe Orders Virtual Department [address] [place] [address] Magalie Villatoro, STATIONARY ENGINEER APPRENTICE [address] [facility] [place] [address] [email or web address] Breast screening (Primary Dx) Social History Tobacco Use Types Packs/Day Years [...] st Contact Info) Description 01/30/2024 Procedure Pass [address] [place] [address] 07/12/2024 10:15 AM EDT Appointment [address] [place] [address] Melissa Mendoza MD [address] [place] [address], [address] [place] [address] [email or web address] documented as of this encounter Results * BI MAMMOGRAM SCREENING WITH TOMOSYNTHESIS WITH CAD (BILATERAL) (03/17/2023 10:53 AM EST) Anatomical Region Laterality Modality Breast Left, Breast Right, Breast Bilateral Bila teral Mammography 03/19/2023 8:05 PM EST Impressions 03/21/2023 5:36 PM EST No mammographic signs of malignancy. ??Annual screening is recommended. BI-RADS CATEGORY: ??1 - Negative. DENSITY: ??There are scattered fibroglandular densities. Narrative 03/21/2023 5:36 PM EST Bilateral mammography is performed in conjunction with computed aided detection. 3-D tomography along with 2-D C view imaging was also performed. Comparison made to previous dated as far back as 12/23/2016 and as recent as 03/14/2022. No suspicious masses, areas of architectural distortion or suspicious microcalcifications. ??Stable lucent centered calcifications with benign characteristics on the right. Procedure Note Dano Ovalles MD - 03/21/2023 Bilateral mammography is performed in conjunction with computed aideddetection. 3-D tomography along with 2-D C view imaging was alsoperformed. Comparison made to previous dated as far back as 12/23/2016 andas recent as 03/14/2022. No suspicious masses, areas of architectural distortion or suspiciousmicrocalcifications. Stable lucent centered calcifications with benigncharacteristics on the right. IMPRESSION: No mammographic signs of malignancy. Annual screening is recommended. BI-RADS CATEGORY: 1 - Negative. DENSITY: There are scattered fibroglandular densities. Magalie Villatoro NP IMG MG EXAMS documented in this encounter Visit Diagnoses Diagnosis Breast screening- Primary Breast screening, unspecified Breast screening Breast screening, unspecified documented in this encounter Additional Health Concerns Infection Onset Date Last Indicated Resolved Time COVID-19 04/01/2023 04/01/2023 04/22/2023 1:21 AM EST Assessment Noted Time PHQ-2 Depression Total Score: 1 02/09/20 9:36 AM EST documented as of this encounter Care Teams Farm Service Adviser Relationship Specialty Start Date End Date Magalie Villatoro NP [address] [place] [phone] PCP - General Family Medicine 12/06/22 06/06/23 Melissa Mendoza MD [address] [place] [address], [address] [place] [address] PCP - General Internal Medicine 06/07/23 Giles Cassidy MD [address] [place] [phone] Insurance Assigned Provider 07/08/23 Maximino Kirk MD [address] [place] [phone] Rheumatology 06/08/22 documented as of this encounter Additional Source Comments The information contained in this document represents components of the legal health record. It is not the complete legal health record.[facility]
[2024-06-11 19:48] LABS: Alanine Aminotransferase 9 U/L (0-31); Alkaline Phosphatase 51 U/L (39-117); Anion Gap 11 (12-20); Aspartate Amino Transferase 21 U/L (5-31); Bilirubin Total 0.5 mg/dL (0.0-1.0); Blood Urea Nitrogen 13 mg/dL (9-16); Calcium 9.1 mg/dL (8.4-10.2); Carbon Dioxide 24 mmol/L (22-29); Chloride 110 mmol/L (96-108); Estimated Glomerular Filt Rate > 60; Glucose Random 89 mg/dL (60-115); Potassium 3.9 mmol/L (3.3-5.1); Sodium 141 mmol/L (135-145); Total Protein 7.5 g/dL (6.5-8.0)
== END 2024-06-11 09:14 | disposition home or self-care (01) ==
LOC: HO.HKASLDS 09:13
PROVIDERS: Visit Provider Internal Medicine Rheumatology
DX: M80.00XD Age-related osteoporosis with current pathological fracture, unspecified site, subsequent encounter for fracture with routine healing (principal)
CPT/HCPCS: 36415; 80053

== ENCOUNTER 2024-06-17 11:13 | Outpatient (RCR) | payer MEDICARE, OTHER, SELFPAY ==
[2024-06-17 12:41] VITALS: BP 110/58; PULSE 62; RESP 14; TEMP 36.6; O2SAT 97
[2024-06-17] MEDS: Zoledronic Acid/Mannitol-Water 5 MG/100 ML PGGYBK.BTL IV (13:04)
[2024-06-17] MEDS: 0.9 % Sodium Chloride Flush 10 ML SYRINGE 5 ML IVFLUSH (13:30)
== END 2024-06-17 13:37 | disposition home or self-care (01) ==
LOC: HO.INF 11:13
PROVIDERS: Visit Provider Internal Medicine Rheumatology
DX: M81.0 Age-related osteoporosis without current pathological fracture (principal)
CPT/HCPCS: 96374; J3489

== ENCOUNTER 2024-08-14 12:36 | Outpatient (AMB) | payer MEDICARE, OTHER, SELFPAY ==
--- NOTE | 2024-08-14 12:40 | A.OFFVIS_ITS ---
Vital Signs 08/14/24 12:41 Height 5 ft Weight 158 lb 4.67 oz BMI 30.9 BP 130/70 Blood Pressure Location Lt brachial Position Sitting Pulse 66 Pulse Source Pulse Oximeter Pulse Oximetry (%) 97 Oxygen Delivery Method Room Air Intake Visit Reasons: 3 Months Intake Note: Patient presents today for Osteoarthritis of knees, bilateral follow up. Allergies Penicillins Allergy (Mild, Verified 08/14/24 12:40) Hives codeine Adverse Reaction (Mild, Verified 08/14/24 12:40) dry heaves HPI HPI 3 Months: Details: Pain did not improve with euflexxa. PT is starting next week. 2-3 days after reclast she had pain in her chest. Intermittent. Relaxing and breathing resolved pain. Duration one day. Physical Exam Vital Signs: Last Vital Signs Pulse 66 08/14/24 12:41 BP 130/70 08/14/24 12:41 Pulse Ox 97 08/14/24 12:41 Oxygen Delivery Method Room Air 08/14/24 12:41 BMI result Body Mass Index 30.9 Const Other: General: Comfortable Skin: No lesions seen MSK: Nontender bilateral knees. Limited full flexion. Limited full external rotation of bilateral hips. Good range of motion of cervical spine. Good lumbar flexion. Assessment & Plan Assessment & Plan (1) Osteoporosis: Comment: History of fragility fracture with L1 compression fracture 12/21/2021 on L-spine x-ray. Evenity started 02/20/2023, she received half dose 07/22/2023 as patient revealed she may have had a gum abscess during administration of 1st injection, she resumed full dose Evenity 08/21/2023 and completed 12th dose 03/22/2024. She recently had a bone density scan, which shows improvement in bone density and L- spine and left femoral neck compared to bone density from 04/2022 [facility]. Reclast 06/2024. She experience 1 day of chest pain 2-3 days after receiving Reclast resolved with rest and deep breathing. It is unclear if chest pain is related to Reclast treatment. I compared bone density from April 2024 to October 2022. She has improvement of T-scores in lumbar spine (-1.6 to - 0.3) and left femoral neck (-2.0 to -1.7) with increase bone density in left total hip (-0.6 to- 1.1). Code(s): M81.0 - Age-related osteoporosis without current pathological fracture Category: Medical Qualifiers: Osteoporosis type: age-related Presence of current pathological fracture: with current pathological fracture Encounter type: subsequent encounter Fracture healing: with routine healing Qualified Code(s): M80.00XD - Age-related osteoporosis with current pathological fracture, unspecified site, subsequent encounter for fracture with routine healing Plan: I am recommending bone density in April 2025 to assess benefit after Reclast treatment received 06/2024. She may qualify for drug holiday if there is stability or improvement of bone density. Continue calcium carbonate 500 mg daily Continue vitamin-D 75 mcg daily I will obtain bone markers of turnover, creatinine, calcium and vitamin-D in April 2025 Return to clinic in 3 months (2) Osteoarthritis of knees, bilateral: Comment: Initially she had improvement in pain after Euflexxa but reports no change. Code(s): M17.0 - Bilateral primary osteoarthritis of knee Category: Medical Qualifiers: Osteoarthritis type: primary Qualified Code(s): M17.0 - Bilateral primary osteoarthritis of knee Plan: Encouraged regular exercise program. She will be starting physical therapy next week Cane prescribed for additional support Continue to wear right knee brace Can consider pain management referral for consideration of geniculate nerve block at follow-up visit if knee pain does not improve with physical therapy Return to clinic in 3 months (3) Other termite control servicer (current) drug therapy: Comment: Reclast Code(s): Z79.899 - Other termite control servicer (current) drug therapy Category: Medical Plan: See above Orders: Orders XR DEXA axial skeleton Today M80.00XD - Age-related osteoporosis with current p athological fracture, unspecified site, subsequent encounter for fracture with routine healing, Z79.899 - Other fdc (current) drug therapy XR DEXA appendicular skeleton Today M80.00XD - Age-related osteoporosis with current pathological fracture, unspecified site, subsequent encounter for fracture with routine healing Medications: New cane As directed Dx: osteoarthritis bilateral knees. 1 ea 0RF Coding Level of Care Code Est Pt Level 4 (18757) Complex EM visit Add On G2211 Diagnoses Age-related osteoporosis with current pathological fracture with routine healing, subsequent encounter M80.00XD Osteoporosis type: age-related Presence of current pathological fracture: with current pathological fracture Encounter type: subsequent encounter Fracture healing: with routine healing Primary osteoarthritis of both knees M17.0 Osteoarthritis type: primary Other fdc (current) drug therapy Z79.899 Time Spent (min) 22
[2024-08-14 12:41] VITALS: BP 130/70; PULSE 66; O2SAT 97; BMI 30.9
--- OUTSIDE RECORDS SUMMARY | 2024-08-14 12:58 | XMS_ITS | Encounter Summary ---
Author Organization [facility] Address [address] [place] [phone] Phone Care Team Providers Care Toggler Name Role Phone Margareth Hollins CNP Unavailable [phone] Margareth Hollins APPLIER Primary Care Provider Giles Cassidy MD Unavailable Maximino Kirk MD Unavailable Magalie Villatoro ACID CLEANER Primary Care Provider Melissa Mendoza MD Primary Care Provider Melissa Mendoza MD Unavailable [phone] Encounter Details Date Type Department Care Team (Late st Contact Info) Description 02/11/2021 Ancillary Orders [facility],Outside Imaging [address] [place], [place] [id number] System, Provider Not In, [place] [address] Social History Tobacco Use Types Packs/Day Years Used Date Smoking Tobacco: Never Smokeless Tobacco: Never Comments:secondhand smoke at home currently Comments Unknown Sex and Gender Information Value Date Recorded Sex Assigned at Not on file Legal Sex Female 10:09 PM EDT Gender Identity Not on file Sexual Orientation Not on file documented as of this encounter Plan of Treatment Not on file documented as of this encounter Results * Mammogram Outside (No Interpretation) (01/20/2020 12:00 AM EDT) Narrative SYSTEMGENERATED, DOCUMENTATION - 02/11/2021 11:23 AM EST This study is for PACS storage only and not for interpretation. us Provider Not In System PhD IMG OUTSIDE IMAGING W /OUT INTERPRETATION Final Result * Mammogram Outside (No Interpretation) (01/29/2018 12:00 AM EDT) Narrative SYSTEMGENERATED, DOCUMENTATION - 02/11/2021 11:22 AM EST This study is for PACS storage only and not for interpretation. us Provider Not In System PhD IMG OUTSIDE IMAGING W /OUT INTERPRETATION Final Result * Mammogram Outside (No Interpretation) (12/23/2016 12:00 AM EDT) Narrative SYSTEMGENERATED, DOCUMENTATION - 02/11/2021 11:21 AM EST This study is for PACS storage only and not for interpretation. us Provider Not In System PhD IMG OUTSIDE IMAGING W /OUT INTERPRETATION Final Result * Mammogram Outside (No Interpretation) (04/06/2015 12:00 AM EST) Narrative SYSTEMGENERATED, DOCUMENTATION - 02/11/2021 11:21 AM EST This study is for PACS storage only and not for interpretation. us Provider Not In System PhD IMG OUTSIDE IMAGING W /OUT INTERPRETATION Final Result * Mammogram Outside (No Interpretation) (04/02/2014 12:00 AM EST) Narrative SYSTEMGENERATED, DOCUMENTATION - 02/11/2021 11:20 AM EST This study is for PACS storage only and not for interpretation. us Provider Not In System PhD IMG OUTSIDE IMAGING W /OUT INTERPRETATION Final Result documented in this encounter Visit Diagnoses Not on filedocumented in this encounter Additional Health Concerns Infection Onset Date Last Indicated Resolved Time COVID-19 04/01/2023 04/01/2023 04/22/2023 1:21 AM EST Assessment Noted Time PHQ-2 Depression Total Score: 0 02/09/20 9:51 AM EST documented as of this encounter Care Teams Toggler Relationship Specialty Start Date End Date Gurvinder Margareth NkechiNEO [address] [place] [phone] [email or web address] PCP - General Internal Medicine 07/03/20 12/05/22 Magalie Villatoro NP [address] [place] [phone] [email or web address] PCP - General Family Medicine 12/06/22 06/06/23 Melissa Mendoza MD [address] [place] [phone] [email or web address] PCP - General Internal Medicine 06/07/23 Margareth Hollins CNP [address] [place] [phone] [email or web address] Medicine 07/03/20 06/07/22 Giles Cassidy MD [address] [place] [address] [email or web address] Insurance Assigned Provider 07/08/23 07/07/24 Maximino Kirk MD [address] [place] [phone] Rheumatology 06/08/22 Melissa Mendoza MD [address] [place] [phone] [email or web address] Insurance Assigned Provider 07/07/24 documented as of this encounter Additional Source Comments The information contained in this document represents components of the legal health record. It is not the complete legal health record.[facility]
--- OUTSIDE RECORDS SUMMARY | 2024-08-14 12:58 | XMS_ITS | Clinical Summary ---
Author Organization [facility] Address [address] [facility] [address] [place] [address] Phone Care Team Providers Care Molder Sweep Name Role Phone Maximino Kirk MD Unavailable [phone] Melissa Mendoza A Primary Care Provider [phone] Melissa Mendoza MD Unavailable [phone] Allergies Active Allergy Reactions Criticality Noted Date Comments Codeine High 08/07/2020 Lactose 12/15/2021 Penicillins Rash High 08/07/2020 Medications romosozumab-aqq g (EVENITY SUBQ) 2 shots/month 3 Active CALCIUM ORAL Take by mouth. Active ascorbic acid (VITAMIN C ORAL) Take by mouth. Active Medication-Free Text EUFIXIA GEL Active metroNIDAZOLE (METROGEL) 0.75 % (37.5mg/5 gram) vaginal gel Place vaginally daily as needed. Active levothyroxine (SYNTHROID, LEVOTHROID) 50 MCG tabletIndicatio ns:Hypothyroidi sm, unspecified type Take 1 tablet (50 mcg total) by mouth daily. 90 tablet 3 5 Active levothyroxine (SYNTHROID, LEVOTHROID) 50 MCG tabletIndicatio ns:Hypothyroidi sm, unspecified type Take 1 tablet (50 mcg total) by mouth daily. 90 tablet 3 4 07/24/19 25 Discontinu ed(Reorder ) Active Problems Problem Noted Date Diagnosed Date [...] supplementation Acute low back pain 12/01/2021 02/12/20 22 Assessment & Plan (12/01/2021 6:17 PM EDT): [...] Encounters Date Type Department Care Team Description 08/12/[address] [place] [address] Melissa Mendoza MD Unknown issues 07/23/[address] [place] [address] Kerry Diallo MA Medication Refill 07/12/2024 9:48 AM EDT - 07/12/2024 11:59 PM EDT Hospital Encounter [address] [place] [address] Melissa Mendoza MD Discharge Disposition: Home or Self Care 06/13/[address] [place] [address] Melany Carlson, RN Results 06/10/2024 10:22 AM EDT - 06/10/2024 11:59 PM EDT Hospital Encounter [address] [place] [address] Melissa Mendoza MD Discharge Disposition: Home or Self Care 05/22/[address] [place] [address] Pierce Jason RN 05/17/2024 9:48 AM EST - 05/17/2024 11:59 PM EST Hospital Encounter [facility] [address] [facility] [place] Fer[place] [address] Melissa Mendoza MD Discharge Disposition: Home or Self Care 05/06/2024 Procedure Pass [address] [place] [address] 01/30/2024 Procedure Pass [address] [place] [address] from Last 3 Months Immunizations Immunization Administration Dates Next Due COVID-19 (Pre-01/23) Moderna [...] 1 04/03/2013,02/21/2011,04/09/2010,12/29 Influenza, Unspecified Formulation 01/12,01/30/2008,02/20/2003,03/21 Novel [id number], Injectable 03/25/2009 Pneumococcal conjugate PCV13 12/15/2014 Pneumococcal [...] or tries to control you? No 05/06/2024 Comments No Sex and Gender Information Value Date Recorded [...] 06/05/2024 7:46 PM EST Plan of Treatment Health Maintenance Due Date Last Done Comments RSV VACCINE (1 - 1-dose 75+ series) 08/12/2019 COVID-19 VACCINE ( season) 2023 05/10/2021, 04/12/2021 DEPRESSION SCREENING 05/06/2025 05/06/2024 TSH LEVEL 05/17/2025 05/17/2024, 0204/2023, 02/14/2022, Additional history exists LIPID PANEL 05/17/2029 05/17/2024, 02/01, 02/14/2022, Additional history exists Adult Td,Tdap Booster 10/22/2033 10/23/2023 , 08/01/2012, 07/10/2002 PNEUMOCOCCAL VACCINES (50+ years) Completed 12/15/2014, 04/30/2010 ZOSTER VACCINES Completed 04/11/2018, 11/2017, 01/29/2007 OSTEOPOROSIS SCREENING INITIAL (ONE-TIME) Completed 05/06/2024, 02/25/2020 SMOKING STATUS SCREENING (Once After 26 Yrs) Completed 07/12/2024 HEPATITIS A VACCINES Aged Out No long er eligible based on patient's age to complete this topic HIB VACCINES Aged Out No longer eligi ble based on patient's age to complete this topic MENINGOCOCCAL VACCINES (ACWY) Aged Out No longer eligible based on patient's age to complete this topic MENINGOCOCCAL VACCINES (B) Aged Out N o longer eligible based on patient's age to complete this topic Medical Devices Not on file Procedures Procedure Name Priority Date/Time Associated Diagnosis Comments BI MAMMOGRAM SCREENING WITH TOMOSYNTHESIS WITH CAD (BILATERAL) Routine 07/12/2024 10:19 AM EDT Breast screening MRI BRAIN WITHOUT CONTRAST Routine 06/10/2024 11:13 AM EDT Memory loss LIPID PANEL Routine 05/17/2024 9:48 [...] DEXA SCAN Routine 05/06/2024 11:49 AM EST from Last 3 Months or Most Recently Relevant to Health Maintenance Results * BI MAMMOGRAM SCREENING WITH TOMOSYNTHESIS WITH CAD (BILATERAL) (07/12/2024 10:19 AM EDT) Anatomical Region Laterality Modality Breast Left, Breast Right, Breast Bilateral Bila teral Mammography 07/12/2024 12:2 4 PM EDT Impressions 07/12/2024 12:25 PM EDT No mammographic evidence of malignancy in either breast. Annual screening mammography is recommended. BI-RADS 1 NEGATIVE The patient will be notified of the results and recommendations. Narrative 07/12/2024 12:25 PM EDT BI MAMMOGRAM SCREENING WITH TOMOSYNTHESIS WITH CAD (BILATERAL) Additional patient information: Screening. COMPARISON: Comparison is made with relevant prior imaging. Breast composition: There are scattered areas of fibroglandular density. FINDINGS: No abnormal masses, suspicious calcifications, or other significant findings are identified mammographically in either breast. us Melissa A Reji NOONAN IMG MG EXAMS Final Result * MRI BRAIN WITHOUT CONTRAST (06/10/2024 11:13 AM EDT) Anatomical Region Laterality Modality Head Magnetic Resonan ce 06/12/2024 10:0 3 AM EDT Impressions 06/12/2024 10:06 AM EDT 1. ??No evidence of a neurodegenerative process. 2. ??Few scattered areas of white matter signal abnormality are a non-specific finding but may represent the sequela of chronic microangiopathy. Narrative 06/12/2024 10:06 AM EDT MRI BRAIN WITHOUT CONTRAST Referring clinician's provided indication for this examination in [facility]: * Memory Loss TECHNIQUE: MRI BRAIN WITHOUT CONTRAST Multi-sequence, multi-planar MRI of the brain was performed without intravenous contrast. COMPARISON: None. FINDINGS: MRI BRAIN: Brain Parenchyma: There is no mass-effect, midline shift, or space-occupying lesion. ??There is no decreased diffusion to indicate an acute infarct. There are few scattered foci of T2/FLAIR hyperintensity in the subcortical and periventricular white matter, a non-specific finding but likely reflecting the sequela of chronic small vessel disease. Ventricular System and Extra-Axial Spaces: The ventricles, sulci and cisterns are age-appropriate. Extracranial Structures: ??The visualized paranasal sinuses appear clear. Fluid is noted in the left mastoid air cells. ? Procedure Note José Miguel Adrian MD - 06/12/2024 MRI BRAIN WITHOUT CONTRAST Referring clinician's provided indication for this examination in [facility]: *Memory Loss TECHNIQUE: MRI BRAIN WITHOUT CONTRAST Multi-sequence, multi-planar MRI of the brain was performed withoutintravenous contrast. COMPARISON: None. FINDINGS: MRI BRAIN: Brain Parenchyma: There is no mass-effect, midline shift, orspace-occupying lesion. There is no decreased diffusion to indicate anacute infarct. There are few scattered foci of T2/FLAIR hyperintensity inthe subcortical and periventricular white matter, a non-specific findingbut likely reflecting the sequela of chronic small vessel disease. Ventricular System and Extra-Axial Spaces: The ventricles, sulci andcisterns are age-appropriate. Extracranial Structures: The visualized paranasal sinuses appear clear.Fluid is noted in the left mastoid air cells. IMPRESSION: 1. No evidence of a neurodegenerative process. 2. Few scattered areas of white matter signal abnormality are anon-specific finding but may represent the sequela of chronicmicroangiopathy. us Melissa Lisset CORDOBAG MR HEAD/NECK Final Result * (ABNORMAL) Comprehensive metabolic panel (05/17/2024 9:48 AM EST) SODIUM 140 133 - 146 mmol/L [facility] POTASSIUM 4.0 3.3 - 5.1 mmol/L [facility] CHLORIDE 104 96 - 108 mmol/L [facility] CO2 27 21 - 35 mmol/L [facility] BUN 14 6 - 19 mg/dL [facility] CREATININE 0.80 0.5 - 1.5 mg/dL [facility] GLUCOSE 101(H) 70 - 99 mg/dL [facility] ALBUMIN 4.0 3.9 - 4.8 g/dL [facility] TOTAL PROTEIN 7.3 6.5 - 8.0 g/dL [facility] CALCIUM 9.1 8.4 - 10.3 mg/dL [facility] ALKALINE PHOSPHATASE 68 39 - 117 U/L [facility] TOTAL BILIRUBIN 0.5 0.0 - 1.2 mg/dL [facility] AST 20 0 - 37 U/L [facility] ALT 7 0 - 40 U/L [facility] GLOBULIN 3.3 1 - 4.8 g/dL [facility] EGFR 75 >59 mL/min/1.7 3m2 [facility] Comment:Estimated glomerular filtration rate calculated using the CKD-EPI refit equation. ANION GAP 13 10 - 20 mmol/L [facility] Blood 05/17/2024 9:48 AM EST 05/17/2024 9:52 AM EST us Melissa A Reji NOONAN LAB BLOOD ORDERABLES Final Re sult Performing Organization Address City/[facility]/ZIP Co de Phone Number [address] [address] * TSH with reflex (05/17/2024 9:48 AM EST) TSH 3.08 0.27 - 4.20 uIU/mL [facility] Blood 05/17/2024 9:48 AM EST 05/17/2024 9:52 AM EST us Melissa A Reji NOONAN LAB BLOOD ORDERABLES Final Re sult Performing Organization Address [facility] Co de Phone Number [address] [address] * Methylmalonic acid, serum (05/17/2024 9:48 AM EST) METHYLMALONIC ACID 0.27 <=0.40 nmol/mL [facility] DPT OF LAB MED AND PAT+ Comment: (NOTE) ADDITIONAL INFORMATION This test was developed and its performance characteristics determined by [facility] in a manner consistent with CLIA requirements. This test has not been cleared or approved by the U.S. Food and Drug Administration. Blood 05/17/2024 9:48 AM EST 05/17/2024 9:52 AM EST us Melissa A Reji NOONAN LAB BLOOD ORDERABLES Final Re sult Performing Organization Address City/[facility]/ZIP Co de Phone Number [facility] DPT OF LAB MED AND PAT+ [address] [place] [address] * Sedimentation rate (ESR) (05/17/2024 9:48 AM EST) ESR 14 0 - 30 mm/h [facility] Blood 05/17/2024 9:48 AM EST 05/17/2024 9:52 AM EST us Melissa A Reji NOONAN LAB BLOOD ORDERABLES Final Re sult [address] [address] * (ABNORMAL) CBC (05/17/2024 9:48 AM EST) WBC 4.85 4.00 - 11.00 K/uL [facility] RBC 4.38 4.00 - 5.20 M/uL [facility] HGB 12.9 12.0 - 16.0 g/dL [facility] HCT 40.9 36.0 - 46.0 % [facility] PLT 213 150 - 450 K/uL [facility] MCV 93.4 80.0 - 100.0 fL [facility] MCH 29.5 27.0 - 31.0 pg [facility] MCHC 31.5(L) 32.0 - 36.0 g/dL [facility] RDW 13.1 11.5 - 14.5 % [facility] MPV 11.0 8.4 - 12.0 fL [facility] NRBC 0.00 0.00 /100 WBCs [facility] ABSOLUTE NRBC 0.00 0.00 K/uL [facility] Blood 05/17/2024 9:48 AM EST 05/17/2024 9:52 AM EST us Melissa A Reji NOONAN LAB BLOOD ORDERABLES Final Re sult [address] [address] * Homocysteine (05/17/2024 9:48 AM EST) HOMOCYSTEINE, TOTAL 12.5 0 - 14.2 umol/L [facility] Blood 05/17/2024 9:48 AM EST 05/17/2024 9:52 AM EST us Melissa A Reji NOONAN LAB BLOOD ORDERABLES Final Re sult [facility] [address] [place] [address] * (ABNORMAL) Lipid panel (05/17/2024 9:48 AM EST) HDL 61 mg/dL [facility] Comment: ? Interpretation <40 mg/dL: Low HDL cholesterol (major risk factor for CHD) Greater than or equal to 60 mg/dL: High HDL cholesterol ( negative risk factor for CHD) HDL - cholesterol is affected by a number of factors, e.g. smoking, excerise, hormones, sex and age. CHOLESTEROL 211 0 - 240 mg/dL [facility] TRIGLYCERIDES 75 30 - 160 mg/dL [facility] LDL 135(H) 50 - 129 mg/dL [facility] Comment: LDL levels in terms of risk for coronary heart disease: <100 mg/dL: Optimal 100-129 mg/dL: Near or above optimal 130-159 mg/dL: Borderline high 160-189 mg/dL: High >190 mg/dL: Very High CARDIAC RISK RATIO 3.5 3.3 - 4.4 C [facility] Blood 05/17/2024 9:48 AM EST 05/17/2024 9:51 AM EST us Melissa A Reji NOONAN LAB BLOOD ORDERABLES Final Re sult Performing Organization Address City/[facility]/ZIP Co de Phone Number [facility] [address] [place] [address] * HM DEXA SCAN (05/06/2024 11:49 AM EST) us Historical Provider HEALTH MAINTENANCE Final Result from Last 3 Months or Most Recently Relevant to Health Maintenance Insurance MEDICARE PART A & B Member Subscriber Plan / Payer (Ef fective 2009-Present) Name:Nita Mcfarlane Member ID:[id number] Relation to Subscriber:Self Name:Nita Mcfarlane Subscriber ID:[id number] Payer ID:[id number] Group ID:Not on file Type:Medicare Address: [employer] [address] MEDICARE SUPPLEMENT Member Subscriber Plan / Payer (Ef fective 2017-Present) Name:Nita Mcfarlane Relation to Subscriber:Self Name:Nita Mcfarlane Payer ID:Not on file Type:Indemnity Address: [place] [id number] MEDICARE PART A & B MEDICARE SUPPLEMENT MEDICARE PART A & B MEDICARE SUPPLEMENT MEDICARE PART A & B MEDICARE SUPPLEMENT MEDICARE PART A & B MEDICARE SUPPLEMENT MEDICARE PART A & B MEDICARE SUPPLEMENT MEDICARE PART A & [facility] MEDICARE SUPPLEMENT MEDICARE PART A & [facility] MEDICARE SUPPLEMENT MEDICARE PART A & [facility] MEDICARE SUPPLEMENT Care Teams Molder Sweep Relationship Specialty Start Date End Date Melissa Mendoza MD [address] [place] [address] PCP - General Internal Medicine 06/07/23 Maximino Kirk MD Rheumatology 06/08/22 Melissa Mendoza MD [address] [place] [address] maria Insurance Assigned Provider 07/07/24 Additional Source Comments The information contained in this document represents components of the legal health record. It is not the complete legal health record.[facility]
--- OUTSIDE RECORDS SUMMARY | 2024-08-14 12:58 | XMS_ITS | Encounter Summary ---
Author Organization [facility] Address [address] [place] [address] Phone Care Team Providers Care Precision Farming Coordinator Name Role Phone Giles Cassidy MD Unavailable [phone] Maximino Kirk MD Unavailable Melissa Mendoza MD Primary Care Provider [phone] Melissa Mendoza MD Unavailable [phone] Encounter Details Date Type Department Care Team (Late st Contact Info) Description 05/06/2024 Procedure Pass [facility], [address] [place] [address] Social History Tobacco Use Types Packs/Day Years [...] on file documented as of this encounter Visit Diagnoses Not on filedocumented in this encounter Additional Health Concerns Assessment Noted Time PHQ-2 Depression Total Score: 0 05/06/19 25 10:01 AM EST documented as of this encounter Care Teams Precision Farming Coordinator Relationship Specialty Start Date End Date Melissa Mendoza MD [address] [place] [address], [address] [place] [address] [email or web address] PCP - General Internal Medicine 06/07/23 Giles Cassidy MD [address] [place] [address] [email or web address] Insurance Assigned Provider 07/08/23 07/07/24 Maximino Kirk MD [address] [place] [address] Rheumatology 06/08/22 Melissa Mendoza MD [address] [place] [address], [address] [place] [address] [email or web address] Insurance Assigned Provider 07/07/24 documented as of this encounter Additional Source Comments The information contained in this document represents components of the legal health record. It is not the complete legal health record.[facility]
--- OUTSIDE RECORDS SUMMARY | 2024-08-14 12:58 | XMS_ITS | Encounter Summary ---
Author Organization [facility] Address [address] [place] [address] Phone Care Team Providers Care Certified Composites Technician Name Role Phone Margareth Hollins CNP Unavailable Margareth Hollins HOSE TUBING BACKER Primary Care Provider Giles Cassidy MD Unavailable [phone] Maximino Kirk MD Unavailable [phone] Magalie Villatoro TELEPHONE OPERATORS SUPERVISOR Primary Care Provider [phone] Melissa Mnedoza MD Primary Care Provider [phone] Melissa Mendoza MD Unavailable [phone] Encounter Details Date Type Department Care Team (Late st Contact Info) Description 12/06/2021 Procedure Pass [address] [place] [address] Social History Tobacco Use Types Packs/Day Years Used Date Smoking Tobacco: Never Smokeless Tobacco: Never Comments:secondhand smoke at home currently Alcohol Use Standard Drinks/Week Comments Yes 0 (1 standard drink = 0.6 oz pure alcohol) 2-3 x month, 2 glasses of wine per month while out dining Comments No Sex and Gender Information Value [...] documented as of this encounter Care Teams Certified Composites Technician Relationship Specialty Start Date End Date Margareth Hollins NkechiNEO [address] [place] [address] [email or web address] PCP - General Internal Medicine 07/03/20 12/05/22 Magalie Villatoro NP [address] [place] [address] [email or web address] PCP - General Family Medicine 12/06/22 06/06/23 Melissa Mendoza MD [address] [place] [address], [address] [place] [address] [email or web address] PCP - General Internal Medicine 06/07/23 Margareth Hollins CNP [address] [place] [address] Internal Medicine 07/03/20 06/07/22 Giles Cassidy MD [address] [place] [address] [email or web address] Insurance Assigned Provider 07/08/23 07/07/24 Maximino Kirk MD [address] [place] [address] Rheumatology 06/08/22 Melissa Mendoza MD [address] [place] [address], 2[address] [place] [address] [email or web address] Insurance Assigned Provider 07/07/24 documented as of this encounter Additional Source Comments The information contained in this document represents components of the legal health record. It is not the complete legal health record.[facility]
--- OUTSIDE RECORDS SUMMARY | 2024-08-14 12:58 | XMS_ITS | Clinical Summary ---
Author Organization [facility] Address [address] [place] [address] Care Team Providers Care Home Aid Name Role Phone Margareth Hollins OIL EXPELLER OPERATOR Primary Care Provider Allergies Active Allergy Reactions Criticality Noted Date Comments Codeine 06/16/2020 Other reaction(s): nausea Penicillin Other (See Comments) 06/16/2020 Medications levothyroxine (SYNTHROID) 50 MCG tablet TAKE 1 TABLET BY MOUTH EVERY DAY Active clotrimazole-be tamethasone (LOTRISONE) cream 1 application Active ivermectin (Soolantra) 1 % crea 1 application Active ivermectin (Soolantra) 1 % crea 1 application Active clotrimazole-be tamethasone (LOTRISONE) cream 1 Application Active ivermectin (Soolantra) 1 % crea 1 Application Active levothyroxine (SYNTHROID) 50 MCG tablet Take 1 tablet (50 mcg total) by mouth 8 Active Immunizations Name Administration Dates Next Due Flucelvax Trivalent PFS IM; Without Preservative (18+ mos) 01/30/2023 Social History Tobacco Use Types Packs/Day Years Used Date Smoking Tobacco: Never Smokeless Tobacco: Never PHQ-2 Answer Date Recorded PHQ-2 Total Score 0 01/30/2023 Comments No Sex and Gender Information Value Date Recorded Sex Assigned at Not on file Legal Sex Female 5:08 PM EDT Gender Identity Not on file Sexual Orientation Not on file Last Filed Vital Signs Vital Sign Reading Time Taken Comments Blood Pressure 126/62 01/30/2023 11:40 AM EDT Pulse 69 01/30/2023 11:40 AM EDT Temperature 36.4 ??C (97.5 ??F) 01/30/2023 11:40 AM E DT Respiratory Rate 18 01/30/2023 11:40 AM EDT Oxygen Saturation 98% 01/30/2023 11:40 AM EDT Inhaled Oxygen Concentration - - Weight - - Height - - Body Mass Index - - Plan of Treatment Health Maintenance Due Date Last Done Comments Depression: Screening Annual ly using PHQ-2/9 in Adults 18 yrs or above (or HM Modifier)([facility]) 1963 SUNNY Screening: Once using ST OP-BANG Questionnaire for Adults with Conditions or high BMI([facility]) 1963 SDOH Screening Reminder: Fabiana birgitlly for all adults ([facility]) 1963 Tobacco Smoking Cessation: i n Adults excluding Women: Behavioral and Pharmacotherapy Interventions ([facility]) 1963 DTaP/Tdap/Td Vaccines ([facility]) (1 - Tdap) 08/12/1963 Lipid Screening: Every 5 yrs for Women aged 45+ (or HM Modifier) ([facility]) 1990 Pneumococcal Vaccination Scr eening: Patients 50+ yrs of age ([facility]) (1 of 1 - PCV) 1994 Zoster/Shingles Vaccine Seri es Screening: Adults aged 18+ yrs (or HM Modifiers)([facility]) (1 of 2) 1994 Osteoporosis Screening to Pr event Fractures: Women aged 65 years+ ([facility]) 2009 RSV Vaccines (1 - 1-dose 75+ series) 08/12/2019 COVID-19 Vaccine Screening: Initial Series and Booster Status ([facility]) (2023- season) 2023 Flu Vaccination: Ages 65+: Y early High Dose Recommended (or Modifier)([facility]) 11/01/2024 01/30/2023 Medical Devices Not on file Insurance [facility] MEDICARE Care Teams Home Aid Relationship Specialty Start Date End Date Margareth Hollins NP [address] [place] [address] PCP - General Obstetrics and Gynecology 10/09/20
--- OUTSIDE RECORDS SUMMARY | 2024-08-14 12:58 | XMS_ITS | Encounter Summary ---
Author Organization [facility] Address [address] [place] [address] Phone Care Team Providers Care Old Coin Dealer Name Role Phone Giles Cassidy MD Unavailable [phone] Maximino Kirk MD Unavailable Melissa Mendoza MD Primary Care Provider [phone] Melissa Mendoza MD Unavailable [phone] Encounter Details Date Type Department Care Team (Late st Contact Info) Description 01/30/2024 Procedure Pass [facility] - [address] [place] [address] Social History Tobacco Use Types Packs/Day Years [...] or tries to control you? No 04/28/2023 Comments No Sex and Gender Information Value [...] documented as of this encounter Care Teams Old Coin Dealer Relationship Specialty Start Date End Date Melissa Mendoza MD [address] [place] [address] PCP - General Internal Medicine 06/07/23 Giles Cassidy MD [address] [place] [address] Insurance Assigned Provider 07/08/23 07/07/24 Maximino Kirk MD [address] [place] [address] Rheumatology 06/08/22 Melissa Mendoza MD [address] [place] [phone] Insurance Assigned Provider 07/07/24 documented as of this encounter Additional Source Comments The information contained in this document represents components of the legal health record. It is not the complete legal health record.[facility]
--- OUTSIDE RECORDS SUMMARY | 2024-08-14 12:58 | XMS_ITS | Encounter Summary ---
Author Organization [facility] Address [address] [place] [address] Phone Care Team Providers Care Die Forger Name Role Phone Giles Cassidy MD Unavailable [phone] Maximino Kirk MD Unavailable Magalie Villatoro NP Primary Care Provider [phone] Melissa Mendoza MD Primary Care Provider [phone] Melissa Mendoza MD Unavailable [phone] Encounter Details Date Type Department Care Team (Late st Contact Info) Description 12/20/2022 Procedure Pass [facility] - [address] [place] [address] Social History Tobacco Use Types Packs/Day Years [...] with a working camera? Not on file Comments No Sex and Gender Information Value [...] documented as of this encounter Care Teams Die Forger Relationship Specialty Start Date End Date Magalie Villatoro NP [address] [place] [address] [email or web address] PCP - General Family Medicine 12/06/22 06/06/23 Melissa Mendoza MD [address] [place] [address] PCP - General Internal Medicine 06/07/23 Giles Cassidy MD [address] [place] [address] [email or web address] Insurance Assigned Provider 07/08/23 07/07/24 Maximino Kirk MD [address] [place] [address] Rheumatology 06/08/22 Melissa Mendoza MD [address] [place] [address] [email or web address] Insurance Assigned Provider 07/07/24 documented as of this encounter Additional Source Comments The information contained in this document represents components of the legal health record. It is not the complete legal health record.[facility]
--- OUTSIDE RECORDS SUMMARY | 2024-08-14 12:58 | XMS_ITS | Encounter Summary ---
Author Organization [facility] Address [address] [place] [address] [place] [address] Phone Care Team Providers Care Concrete Analyst Name Role Phone Margareth Hollins CNP Unavailable Margareth Hollins VICE PRESIDENT [employer] Primary Care Provider Giles Cassidy MD Unavailable [phone] Maximino Kirk MD Unavailable [phone] Magalie Villatoro OPERATIONS SECTION MANAGER Primary Care Provider [phone] Melissa Mendoza MD Primary Care Provider [phone] Melissa Mendoza MD Unavailable [phone] Encounter Details Date Type Department Care Team (Late st Contact Info) Description 02/07/2022 Procedure Pass [facility] - [address] [place] [address] Social History Tobacco Use Types Packs/Day Years [...] documented as of this encounter Care Teams Concrete Analyst Relationship Specialty Start Date End Date Margareth Hollins CNP [address] [place] [address] [email or web address] PCP - General Internal Medicine 07/03/20 12/05/22 Magalie Villatoro NP [address] [place] [address] PCP - General Family Medicine 12/06/22 06/06/23 Melissa Mendoza MD [address] [place] [address], [address] [place] [address] [email or web address] PCP - General Internal Medicine 06/07/23 Margareth Hollins CNP [address] [place] [address] Internal Medicine 07/03/20 06/07/22 Giles Cassidy MD [address] [place] [address] [email or web address] Insurance Assigned Provider 07/08/23 07/07/24 Maximino Kirk MD [address] [place] [address] Rheumatology 06/08/22 Melissa Mendoza MD [address] [place] [address], [address] [place] [address] [email or web address] Insurance Assigned Provider 07/07/24 documented as of this encounter Additional Source Comments The information contained in this document represents components of the legal health record. It is not the complete legal health record.[facility]
--- OUTSIDE RECORDS SUMMARY | 2024-08-14 12:58 | XMS_ITS | Encounter Summary ---
Author Organization [facility] Address [address] [facility] [address] [place] [address] Phone Care Team Providers Care Inspector Watch Train Name Role Phone Maximino Kirk MD Unavailable [phone] Melissa Mendoza MD Primary Care Provider [phone] Melissa Mendoza MD Unavailable [phone] Reason for Referral * Consultation (Within 2 weeks) - New Request Specialty Diagnoses / Procedures Referred By Shruthi salmon Referred To Contact Diagnoses Encounter for hearing evaluation Melissa Mendoza MD [address] [place] [address], [address] [place] [address] Phone: tel: fax: [email or web address] Referral ID Status Reason Start Date Expiration Date V isits Requested Visits Authorized [id number] New Request 08/13/2024 08/12/2025 1 1 Scheduling Instructions [facility] [place], [place] . * Consultation (Within 2 weeks) - New Request Specialty Diagnoses / Procedures Referred By Shruthi salmon Referred To Contact Diagnoses At risk for sleep apnea Melissa Mendoza MD [address] [place] [address], [address] [place], [place] Phone: tel: fax: [email or web address] [address] [place] [address] Phone: tel: Referral ID Status Reason Start Date Expiration Date V isits Requested Visits Authorized [id number] New Request 08/13/2024 08/12/2025 1 1 Reason for Visit * Reason Onset Date Comments Unknown issues 08/12/2024 Encounter Details Date Type Department Care Team (Late st Contact Info) Description 08/12/2024 Telephone [facility] [address] [place] [address] [address] [place] [address] Melissa Mendoza MD [address] [facility], [address] [place] [address] [email or web address] Unknown issues Social History Tobacco Use Types Packs/Day Years [...] as of this encounter Progress Notes * Melany Carlson RN - 08/13/2024 1:31 PM EDT Outgoing call to patient to inform of Dr. Mendoza's message. Patient states understanding. * Melissa Mendoza MD - 08/13/2024 12:40 PM EDT Referrals signed but I did not order the blood tests as these were all done in the past and were normal. * Melany Carlson RN - 08/12/2024 4:07 PM EDT Outgoing call to patient who states she saw Christiano Wirght for neuropsych testing and just wanted to make sure Dr. Mendoza received the records and his recommendations on page 5. Patient states sheprefers [facility] in [place] for hearing test. . Records have been scanned into media for review. Referrals, labs pended if appropriate. To Dr. Mendoza. * Fany Lentz - 08/12/2024 3:16 PM EDT Pt LVM asking for c/b from nurse to discuss some issues she encountered at her appt w/ neuropsych. C/b at [phone] documented in this encounter Plan of Treatment Scheduled Referrals Name Type Priority Associated Diagnoses Order Schedule Ambulatory referral to [facility] Sleep Medicine Outpatient Referral Routine At risk for sleep apnea Ordered: 08/13/2024 Ambulatory referral to External Audiology Outpatient Referral Routine Encounter for hearing evaluation Ordered: 08/13/2024 documented as of this encounter Visit Diagnoses Diagnosis At risk for sleep apnea- Primary Screening for condition Screening for unspecified condition documented in this encounter Additional Health Concerns Assessment Noted Time PHQ-2 Depression Total Score: 0 05/06/19 25 10:01 AM EST documented as of this encounter Care Teams Inspector Watch Train Relationship Specialty Start Date End Date Melissa Mendoza MD [address] [place] [address] PCP - General Internal Medicine 06/07/23 Maximino Kirk MD Rheumatology 06/08/22 Melissa Mendoza MD [address] [place] [address] Insurance Assigned Provider 07/07/24 documented as of this encounter Additional Source Comments The information contained in this document represents components of the legal health record. It is not the complete legal health record.[facility]
--- OUTSIDE RECORDS SUMMARY | 2024-08-14 12:58 | XMS_ITS | Patient Health Record ---
Author Organization [facility] Address [address] [place] [address] Care Team Providers Care Computer Networking Instructor Name Role Phone Caron Macias Primary Care Provider Irina Vazquez Unavailable [phone] Allergies Allergen (clinical drug ingredient) Drug/Non Drug Allergy documented on EMR Reaction Allergy Type Onset Date Status Penicillin hives Drug Allergy Active codeine Codeine nausea Drug Allergy Active Reason For Referral No Information Medications Medication SIG (Take, Route, Frequency, Duration) Notes Start Date End Date Status Clotrimazole-Betamethasone 1-0.05 % 1 application Externally Twice a day Active Soolantra 1 % 1 application Choir Leader ally Once a day Active Levothyroxine Sodium [...] Problem Acquired hammer toe of right foot (9349177312621796) Other hammer toe(s) (acquired), right foot (M20.41) Active confirmed Problem Acquired hammer toe of left foot (1613831686688100) Other hammer toe(s) (acquired), left foot (M20.42) Active confirmed Problem Localized, primary osteoarthritis of the ankle and/or foot (158983801) Primary osteoarthrit is, right ankle and foot (M19.071) Active confirmed Problem Localized, primary osteoarthritis of the ankle and/or foot (789583448) Primary osteoarthrit is, left ankle and foot (M19.072) Active confirmed Plan Of Treatment No Information Insurance Providers Payer Name Payer Address Payer Phone Subscriber Number Group Number Insured Name Patient Relationship to Insured Coverage Start Date Coverage End Date Medicare National [employer] [address] [place] [address] [id number] Nita Mcfarlane Self - patient is the insured [facility] [address] [place] [address] [phone] [id number] Nita Mcfarlane Self - patient is the insured Medical (General) History Medical History History ICD Code Anxiety Arthritis Thyroid disorder Measles Mumps Chicken pox Cataracts Depression Surgical History Surgery Date(Month/Year) Tubligation 1999 cataract surgery 10/2019
--- OUTSIDE RECORDS SUMMARY | 2024-08-14 12:59 | XMS_ITS | Encounter Summary ---
Author Organization [facility] Address [address] [facility] [address] [place] [address] Phone Care Team Providers Care Pick Up Truck Driver Name Role Phone Giles Cassidy MD Unavailable [phone] Maximino Kirk MD Unavailable Magalie Villatoro IT DIRECTOR Primary Care Provider [phone] Melissa Mendoza MD Primary Care Provider Melissa Mendoza MD Unavailable Encounter Details Date Type Department Care Team (Late st Contact Info) Description 12/20/2022 Transcribe Orders Virtual Department [address] [place] [address] Magalie Villatoro, IT DIRECTOR [address] [facility] [address] [place] [address] [email or web address] Breast screening (Primary Dx) Social History Tobacco [...] There are scattered fibroglandular densities. Magalie Villatoro IT DIRECTOR IMG MG EXAMS Final Result documented in this encounter Visit Diagnoses Diagnosis Breast screening- Primary Breast screening, unspecified Breast screening Breast screening, unspecified documented in this encounter Additional Health Concerns Infection Onset Date Last Indicated Resolved Time COVID-19 04/01/2023 04/01/2023 04/22/2023 1:2 1 AM EST Assessment Noted Time PHQ-2 Depression Total Score: 1 02/09/20 9:36 AM EST documented as of this encounter Care Teams Pick Up Truck Driver Relationship Specialty Start Date End Date Magalie Villatoro, DEREK [address] [place] [address] PCP - General Family Medicine 12/06/22 06/06/23 Melissa Mendoza MD [address] [place] [address] PCP - General Internal Medicine 06/07/23 Giles Cassidy MD [address] [place] [address] Insurance Assigned Provider 07/08/23 07/07/24 Maximino Kirk MD [address] [place] [address] Rheumatology 06/08/22 Melissa Mendoza MD [address] [place] [address] [email or web address] Insurance Assigned Provider 07/07/24 documented as of this encounter Additional Source Comments The information contained in this document represents components of the legal health record. It is not the complete legal health record.[facility]
--- OUTSIDE RECORDS SUMMARY | 2024-08-14 12:59 | XMS_ITS | Encounter Summary ---
Author Organization [facility] Address [address] [place] [address] [place] [address] Phone Care Team Providers Care Golf Instructor Name Role Phone Margareth Hollins CNP Unavailable Margareth Hollins SUGAR BOILER Primary Care Provider Giles Cassidy MD Unavailable [phone] Maximino Kirk MD Unavailable Magalie Villatoro BREEDER SERVICE TECHNICIAN Primary Care Provider [phone] Melissa Mendoza MD Primary Care Provider [phone] Melissa Mendoza MD Unavailable [phone] Encounter Details Date Type Department Care Team (Late st Contact Info) Description 02/08/2021 Procedure Pass [facility] - [address] [place] [address] Social History Tobacco Use Types Packs/Day Years Used Date Smoking Tobacco: Never Smokeless Tobacco: Never Comments:secondhand smoke at home currently Comments No Sex and Gender Information Value [...] documented as of this encounter Care Teams Golf Instructor Relationship Specialty Start Date End Date Manuel Hollinsry NEO Arboleda [address] [place] [address] [email or web address] PCP - General Internal Medicine 07/03/20 12/05/22 Magalie Villatoro NP [address] [place] [address] [email or web address] PCP - General Family Medicine 12/06/22 06/06/23 Melissa Mendoza MD [address] [place] [address] [email or web address] PCP - General Internal Medicine 06/07/23 Margareth Hollins CNP [address] [place] [address] [email or web address] Medicine 07/03/20 06/07/22 Giles Cassidy MD [address] [place] [address] [email or web address] Insurance Assigned Provider 07/08/23 07/07/24 Maximino Kirk MD [address] [place] [address] Rheumatology 06/08/22 Melissa Mendoza MD [address] [place] [address] [email or web address] Insurance Assigned Provider 07/07/24 documented as of this encounter Additional Source Comments The information contained in this document represents components of the legal health record. It is not the complete legal health record.[facility]
== END 2024-08-14 13:23 | disposition home or self-care (01) ==
LOC: HO.RHES 12:37
PROVIDERS: PCP Internal Medicine; Visit Provider Internal Medicine Rheumatology
DX: M80.00XD Age-related osteoporosis with current pathological fracture, unspecified site, subsequent encounter for fracture with routine healing (principal); M17.0 Bilateral primary osteoarthritis of knee; Z79.899 Other long term (current) drug therapy
CPT/HCPCS: 99214; G2211

== ENCOUNTER → 2024-08-14 12:36 | Outpatient (BNVA) | payer MEDICARE, OTHER, SELFPAY | PROVIDERS: PCP Internal Medicine; Visit Provider Internal Medicine Rheumatology | DX: M17.0 Bilateral primary osteoarthritis of knee (principal); M80.00XD Age-related osteoporosis with current pathological fracture, unspecified site, subsequent encounter for fracture with routine healing; X58.XXXD Exposure to other specified factors, subsequent encounter; Z79.899 Other long term (current) drug therapy | CPT/HCPCS: 99212 ==

== ENCOUNTER 2024-11-20 10:33 | Outpatient (AMB) | payer MEDICARE, OTHER, SELFPAY ==
[2024-11-20 10:42] VITALS: BP 132/80; PULSE 63; O2SAT 98; BMI 31.0
--- NOTE | 2024-11-20 10:42 | A.OFFVIS_ITS ---
Vital Signs 11/20/24 10:42 Height 5 ft Weight 158 lb 8.198 oz BMI 31.0 BP 132/80 Blood Pressure Location Lt brachial Position Sitting Pulse 63 Pulse Source Pulse Oximeter Pulse Oximetry (%) 98 Oxygen Delivery Method Room Air Intake Visit Reasons: 3 months Allergies Penicillins Allergy (Mild, Verified 11/20/24 10:42) Hives codeine Adverse Reaction (Mild, Verified 11/20/24 10:42) dry heaves HPI HPI 3 months: Details: She has had benefit with physical therapy. She has been K taping at home. She has knee pain going up and down stairs, getting up from seated position or when gardening. No pain with walking or at night. MS minutes. She does not self medicate. Physical Exam Vital Signs: Last Vital Signs Pulse 63 11/20/24 10:42 BP 132/80 11/20/24 10:42 Pulse Ox 98 11/20/24 10:42 Oxygen Delivery Method Room Air 11/20/24 10:42 BMI result Body Mass Index 31.0 Const Other: General: Comfortable Skin: No lesions seen MSK: Nontender bilateral knees. Limited full flexion. Limited full external rotation of bilateral hips. Assessment & Plan Assessment & Plan (1) Osteoarthritis of knees, bilateral: Comment: Initially she had improvement in pain after Euflexxa 04/2024-05/2024 but then pain returned. PT has been helping with knee strengthening. She has failed cortisone injections in the past ([facility] records). She is having pain with activity. We discussed medical management of knee pain from osteoarthritis with gabapentin or duloxetine or geniculate nerve block. We also discussed recent data that suggests platelet rich plasma may provide more benefit than hyaluronic acid injection (PMID: [id number]). She would like to have surgical opinion about PRP versus alternative surgical options (arthroscopic procedures). She would like to delay knee replacement. We reviewed x-ray bilateral [facility]. Code(s): M17.0 - Bilateral primary osteoarthritis of knee Category: Medical Qualifiers: Osteoarthritis type: primary Qualified Code(s): M17.0 - Bilateral primary osteoarthritis of knee Plan: Orthopedic surgery referral placed Bilateral knee x-rays ordered to evaluate for progression of arthritis Continue physical therapy for knee strengthening Return to clinic in 6 months (2) Osteoporosis: Comment: History of fragility fracture with L1 compression fracture 12/21/2021 on L-spine x-ray. Evenity started 02/20/2023, she received half dose 07/22/2023 as patient revealed she may have had a gum abscess during administration of 1st injection, she resumed full dose Evenity 08/21/2023 and completed 12th dose 03/22/2024. She had a bone density scan 04/2024, which shows improvement in bone density and L- spine and left femoral neck compared to bone density from 04/2022 performed at [facility]. Reclast 06/2024. She experienced 1 day of chest pain 2-3 days after receiving Reclast resolved with rest and deep breathing. It is unclear if chest pain is related to Reclast treatment. I compared bone density from April 2024 to October 2022. She has improvement of T-scores in lumbar spine (-1.6 to - 0.3) and left femoral neck (-2.0 to -1.7) with increase bone density in left total hip (-0.6 to- 1.1). Code(s): M81.0 - Age-related osteoporosis without current pathological fracture Category: Medical Qualifiers: Osteoporosis type: age-related Presence of current pathological fracture: with current pathological fracture Encounter type: subsequent encounter Fracture healing: with routine healing Qualified Code(s): M80.00XD - Age-related osteoporosis with current pathological fracture, unspecified site, subsequent encounter for fracture with routine healing Plan: I am recommending bone density in April 2025 to assess benefit after Reclast treatment received 06/2024. She may qualify for drug holiday if there is stability or improvement of bone density. Continue calcium carbonate 500 mg daily Continue vitamin-D 75 mcg daily I will obtain bone markers of turnover, creatinine, calcium and vitamin-D after bone density scan April 2025 Return to clinic in 6 months Orders: Orders XR Knee Clayton 3V Today M17.0 - Bilateral primary osteoarthritis of knee Referrals Orthopedics Referral M17.0 - Bilateral primary osteoarthritis of knee Coding Level of Care Code Est Pt Level 4 (38314) Diagnoses Primary osteoarthritis of both knees M17.0 Osteoarthritis type: primary Age-related osteoporosis with current pathological fracture with routine healing, subsequent encounter M80.00XD Osteoporosis type: age-related Presence of current pathological fracture: with current pathological fracture Encounter type: subsequent encounter Fracture healing: with routine healing Time Spent (min) 25
--- OUTSIDE RECORDS SUMMARY | 2024-11-20 11:51 | XMS_ITS | Encounter Summary ---
Author Organization [facility] Address [address] [place] [phone] Phone Care Team Providers Care Engine Mechanic Name Role Phone Margareth Hollins CNP Unavailable Margareth Hollins CHUTE MAN Primary Care Provider Giles Cassidy MD Unavailable [phone] Maximino Kirk MD Unavailable [phone] Magalie Villatoro ELEVATOR SERVICE MECHANIC Primary Care Provider [phone] Melissa Mendoza MD Primary Care Provider [phone] Melissa Mendoza MD Unavailable [phone] Encounter Details Date Type Department Care Team (Late st Contact Info) Description 12/06/2021 Procedure Pass [address] [place] [address] Social History Tobacco Use Types Packs/Day Years [...] documented as of this encounter Care Teams Engine Mechanic Relationship Specialty Start Date End Date Maragreth Hollins NkechiNEO [address] [place] [phone] [email or web address] PCP - General Internal Medicine 07/03/20 12/05/22 Magalie Villatoro NP [address] [place] [phone] [email or web address] PCP - General Family Medicine 12/06/22 06/06/23 Melissa Mendoza MD [address] [place] [address], [address] [place] [address] [email or web address] PCP - General Internal Medicine 06/07/23 Margareth Hollins CNP [address] [place] [phone] Internal Medicine 07/03/20 06/07/22 Giles Cassidy MD [address] [place] [phone] [email or web address] Insurance Assigned Provider 07/08/23 07/07/24 Maximino Kirk MD [address] [place] [id number] Rheumatology 06/08/22 Melissa Mendoza MD [address] [place] [address], [address] [place] [address] [email or web address] Insurance Assigned Provider 07/07/24 documented as of this encounter Additional Source Comments The information contained in this document represents components of the legal health record. It is not the complete legal health record.[facility]
--- OUTSIDE RECORDS SUMMARY | 2024-11-20 11:51 | XMS_ITS | Clinical Summary ---
Author Organization [facility] Address [address] [place] [address] Care Team Providers Care Leather Stamper Name Role Phone Margareth Hollins MAGNETIC HEALER Primary Care Provider Allergies Active Allergy Reactions [...] 69 01/30/2023 11:40 AM EDT Temperature 36.4 C (97.5 F) 01/30/2023 11:40 AM EDT Respiratory Rate 18 01/30/2023 11:40 AM EDT Oxygen Saturation 98% 01/30/2023 11:40 AM EDT Inhaled Oxygen Concentration - - Weight - - Height - - Body Mass Index - - Plan of Treatment Health Maintenance Due Date Last Done Comments Depression: Screening Annual ly using PHQ-2/9 in Adults 18 yrs or above (or HM Modifier)([facility]) 1963 SUNNY Screening: Once using ST OP-BANG Questionnaire for Adults with Conditions or high BMI([facility]) 1963 SDOH Screening Reminder: Fabiana moreno for all adults ([facility]) 1963 Tobacco Smoking Cessation: i n Adults excluding Women: Behavioral and Pharmacotherapy Interventions ([facility]) 1963 DTaP/Tdap/Td Vaccines ([facility]) (1 - Tdap) 08/12/1963 Pneumococcal Vaccination Scr eening: Patients 50+ yrs of age ([facility]) (1 of 1 - PCV) 1994 Zoster/Shingles Vaccine Seri es Screening: Adults aged 18+ yrs (or HM Modifiers)([facility]) (1 of 2) 1994 Osteoporosis Screening to Pr event Fractures: Women aged 65 years+ ([facility]) 2009 RSV Vaccines (1 - 1-dose 75+ series) 08/12/2019 COVID-19 Vaccine Screening: Initial Series and Booster Status ([facility]) ( - 2023- season) 2023 Flu Vaccination: Ages 65+: Y early High Dose Recommended (or Modifier)([facility]) 11/01/2024 01/30/2023 Medical Devices Not on file Insurance MEDICARE Care Teams Leather Stamper Relationship Specialty Start Date End Date Margareth Hollins NP [address] [place] [address] PCP - General Obstetrics and Gynecology 10/09/20
--- OUTSIDE RECORDS SUMMARY | 2024-11-20 11:51 | XMS_ITS | Patient Health Record ---
Author Organization [facility] Address [address] [place] [address] Care Team Providers Care Face Hardener Name Role Phone Caron Macias Primary Care Provider Irina Vazquez Unavailable [phone] Allergies Allergen (clinical drug ingredient) Drug/Non Drug Allergy documented on EMR Reaction Allergy Type Onset Date Status Penicillin hives Drug Allergy Active codeine Codeine nausea Drug Allergy Active Reason For Referral No Information Medications Medication SIG (Take, Route, Frequency, Duration) Notes Start Date End Date Status Clotrimazole-Betamethasone 1-0.05 % 1 application Externally Twice a day Active Soolantra 1 % 1 application Transportation Mechanic ally Once a day Active Levothyroxine [...] Problem Acquired hammer toe of right foot (0279698028381087) Other hammer toe(s) (acquired), right foot (M20.41) Active confirmed Problem Acquired hammer toe of left foot (9312036211808219) Other hammer toe(s) (acquired), left foot (M20.42) Active confirmed Problem Localized, primary osteoarthritis of the ankle and/or foot ([id number]) Primary osteoarthrit is, right ankle and foot (M19.071) Active confirmed Problem Localized, primary osteoarthritis of the ankle and/or foot (555690100) Primary osteoarthrit is, left ankle and foot (M19.072) Active confirmed Plan Of Treatment No Information Insurance Providers Payer Name Payer Address Payer Phone Subscriber Number Group Number Insured Name Patient Relationship to Insured Coverage Start Date Coverage End Date Medicare [employer] [address] [place] [address] [id number] Nita Mcfarlane Self - patient is the insured [facility] [address] [facility] [address] [phone] [id number] Nita Mcfarlane Self - patient is the insured Medical (General) History Medical History History ICD Code Anxiety Arthritis Thyroid disorder Measles Mumps Chicken pox Cataracts Depression Surgical History Surgery Date(Month/Year) Tubligation 1999 cataract surgery 10/2019
== END 2024-11-20 12:03 | disposition home or self-care (01) ==
PROVIDERS: PCP Internal Medicine; Visit Provider Internal Medicine Rheumatology
DX: M17.0 Bilateral primary osteoarthritis of knee (principal); M80.00XD Age-related osteoporosis with current pathological fracture, unspecified site, subsequent encounter for fracture with routine healing
CPT/HCPCS: 99214

== ENCOUNTER → 2024-11-20 10:33 | Outpatient (BNVA) | payer MEDICARE, OTHER, SELFPAY | PROVIDERS: PCP Internal Medicine; Visit Provider Internal Medicine Rheumatology | DX: M17.0 Bilateral primary osteoarthritis of knee (principal); M80.00XD Age-related osteoporosis with current pathological fracture, unspecified site, subsequent encounter for fracture with routine healing | CPT/HCPCS: 99212 ==

== ENCOUNTER 2025-01-08 12:06 | Outpatient (RCR) | payer MEDICARE, OTHER, SELFPAY ==
--- NOTE | 2024-08-28 14:12 | MHC.PT.EP ---
[facility] [place] [facility] [place] [facility] [place] [facility] [address] Vel Elliott [address] [phone] F: [phone] F: [phone] F: [phone] F: [phone] Physical Therapy Plan of Care Date of Evaluation: 08/28/24 Date of Surgery: Diagnosis: M17.0 PT eval and treat, bilateral primary osteoarthritis, bilateral. Modalities. TENS unit trial, myofascial release, lower extremity program signed by Dr. Kirk date of script 05/14/24 Assessment: Pt is a RHD 79 y/o female, referred to PT from Dr. Kirk M17.0 PT eval and treat, bilateral primary osteoarthritis, bilateral. Modalities. TENS unit trial, myofascial release, lower extremity program signed by Dr. Kirk date of script 05/14/24. Pt expressing R>L knee pain for several years, since I was 69 history of past cortisone and gel injections six months ago. Pt has a right knee brace which she wears for gardening. She reports history of some lower back pain. Pt expressing concern for ability to ascend/descend stairs (admits goes down stairs backwards due to anterior knee pain), has a hard time get up from squat ((+) demonstrated posterior LOB at eval today) and report and anterior knee pain with prolonged walking. She notes past PT about a year ago but admits to being overwhelmed with too many exercises and non-compliance. She participates in the [facility] [employer] classes but expresses concern for falls when working on hilly terrain in her garden and at home, I'm very afraid to fall. She lives alone does not usually use a cane but wants to learn how to for stairs as she has an upcoming trip to [place] in November and wants to take it in case she is fatigued. Nita appears to be an excellent candidate for therapy as she is motivated and has good self-awareness. Pt was shown how to ascend/descend stairs in a way to reduce stress on her R>L knee descending forward and was educated against going down the stairs backwards. Pt will benefit from attending skilled PT services 2x/week x 4 weeks to address impairments in strength, balance, and mobility. She reports she is active on the [place] in her town and has two cats, likes to walk and stay active. PMH significant for compression fracture in L1. Reviewed log roll technique for body mechanics and bed mobility and was educated in the benefit of using ice for bilateral knee pain. Frequency and Duration: The patient will be seen 2x/week x 4 weeks Short Term Goals: 1. Pt will demonstrate SLR into flexion with good strength. (IR: L fair, R fair). 2. Pt will ascend/descend stairs step to with use of cane with good mechanics. 3. Pt will demonstrate hip abduction strength to 4/5. 4. Pt will demonstrate SLS to 10 seconds on each LE. 5. Initiate self care/HEP program for management of bilateral knee pain. [facility] Goals: 1. Strength hip abductors 5/5 B. (IR: Challenged R hip on 3R, L hip x 10R). 2. Pt will demonstrate floor recovery with good carryover and safety. 3. Demonstrate good functional squat with 3:3 trials with no posterior LOB. (IR: ((+) posterior LOB with return from flexed position). 4. Pt will demonstate I HEP and self care for management of knee pain/symptoms. 5. Knee AAROM>AROM functional 0 to 120 bilaterally (IR: L knee 0-115, R knee 0-118 with stiffness expressed) Treatment Plan: Modalities to reduce pain, spasms and effusion. Manual therapy to restore motion and function. Therapeutic exercise to improve strength and flexibility. Neuromuscular re-education for posture and balance. Therapeutic activities to return to functional activities of daily living. Electronically signed by: Katlyn Hayes, PT, DPT Please sign and return to therapist. Thank you for your referral.
--- NOTE | 2024-09-23 13:46 | MHC.PT.OD ---
[facility] [place] [facility] [place] [facility] [place] Office [address] Vel Elliott [address] [phone] F: [phone] F: [phone] F: [phone] F: [phone] Physical Therapy Daily Note Diagnosis: M17.0 PT eval and treat, bilateral primary osteoarthritis, bilateral. Modalities. TENS unit trial, myofascial release, lower extremity program signed by Dr. Kirk date of script 05/14/24 Date of Surgery: Date of Evaluation: 08/28/24 Date of Treatment: 09/20/24 Treatments to Date: Cancellations to Date: No Shows to Date: Authorized Visits: 9 Insurance End Date: Precautions/ Contraindications: Subjective: Pt had avelino taken out on Monday at [facility], reports I want to practice the stairs more. Pain Score and Location: 05/13 R knee Objective Flowsheet: Tests & Measures see eval Exercises Stepper level 2.0 seat #17 UE at #5 for warm-up x 15 minutes Notes used her stationary bike at home for 20 minutes today. SL hip abduction x 2 sets 10R, SLR into flexion x 2 set 10R, pelvic tilt x 2 set 10R, seated LAQ, AAROM heel slides in supine and sitting for ROM, things to do when prepping for stairs when not doing bike, ie: standing march in place, AP, movement of knee when sitting for too long, prepping ROM of the legs before walking, use of ice prn for pain/evening, goals of OA motion>strength progresison. Review of pool exercises she can complete while away on vacation: standing heel raises, standing hip abduction, standing hip extension, air squats x 2 sets 5R each. Hooklying pelvic tilt x 2 sets, Handout provided, seated hamstring stretch x 4R x 20 sec hold Deferred ice/taping today stating I feel pretty good now. Assessment of head avelino healing- pt to return to ER tomorrow at [facility] for removal (-) brain bleed, concussion, stroke per from ER report ROCKTAPE with V strip for L knee (educated re: handout for removal/goals. Pt was shown how to tape knee (L done by therapist R done by patient with therapist guidance to improve carryover). Pt purchased tape for home (obtained [address] brand- was educated to monitor skin changes after wear. Education and review of how to apply R knee brace (velcro wit R lateral patellar support) Review of stair negotiation ascending and descending with use of single rail (Left rail ascending and R rail descending to simulate dorothea envionment. We determined after trial and error that Nita felt more confident and looked more steady with ascending R LE first, descending R LE first on stair vs descending with L LE (had too much pain in R knee and led to more instability). Modalities Assessment: 09/23/24: Nita has attended 9 session of PT to date, demonstrating advancements>understanding in ROM/ strength of L>R LE>knee/core since start of care. She did express a personal history of fall last Monday, tripping over her vaccuum with side of foot while carrying soup when wearing socks at home, resulting in fall. Due to her carrying soup she did not put her hands out, notes falling forward and hitting head on corner of wall. She was not burned from soup and notes her bowl did not even break. Aside from head wound she was not injured elsewhere. (-) concussion, (-)severe injury per pt after ER visit. She was brought to the [facility] by her neighbor. She notes she was able to get up from the fall herself. She states she applied ice to top of head and knew she needed care due to bleeding and head trauma. She states she thought about calling 911 but instead elected to walk over to her neighbors/friends house. We discussed the benefit in researching life alert bracelet/necklaces wearable options, setting up vocal Keena for aided call services in the event she was on the floor at home unable to get up, importance of staying active in senior center/[facility], and keyless entry boxes to increase safety while promoting independence in the home. We discussed install of gripper painted stairs/an or traction strips for her cellar stairs (to speak with her contractor friend for this). I recommended she move her cat box upstairs so she may reduce need to so many stairs, but on the flip side she states she wants to do stairs which I understand her side of that. We discussed grab bar install in various places to improve under baster/grab ability such as outside of shower/stairs in cellar, removal of throw rugs, and overall safety checklist. In addition to having a head CT at [facility], she was D/C home from the ER with 5 avelino top of her head. She went back to [facility] ER on 09/21/24 to have them taken out on Monday. Nita presents with lots of questions regarding knee OA> when it becomes time for a TKA. She was educated it is a case by case basis but usually her knees will let her know when she is ready due to pain/lack of gain with PT. She was encouraged that she seems to be doing very well right now, she notes pain when doing stairs and has been trying to maintain carryover of education from PT at home in her daily life. She does express pain on stairs which impacts her confidence. Due to her living alone she has concerns about TKA recovery, concerns for transportation/ lack of driving, and typical recovery timelines. We have addressed specific questions she has brought to the office surrounding conservative treatment options including PT> taping for relief of knee pain. She states she has had gel injections but has questions about PRP injections (notes mainly because her son has been pushing her to inquire about this treatments and surgery sooner than later). She expresses she would like to make an earlier with Dr. Kirk before her November appt to address her specific questions. Nita has implemented a gentle walking program and use of her stationary bike several times daily which have been helping her since start of care. At initial eval she had poor SLR strength and now she can do both legs with good ability. I have educated against her walking down the stairs backwards ( this is how she was previously negotiating stairs before PT). We have been working on improving her confidence and strength for stair climbing, step to pattern, and shown how to use a cane for her upcoming trips prn. She may benefit from speaking to you and/or consultation with an orthopedic surgeon not necessarily to book surgery but to discuss/address questions she has around her areas of inquiry> potential of future needs. Nita is scheduled for vacation next week ([place]) and has an upcoming trip to [place]. She is very compliant in her home program but I feel she would benefit from attending more PT to address fall risk, improve dynamic balance/reactions and strength/confidence for daily mobility before her trip to [place]. Thank you for your referral. 09/20/24: Pt had head CT, had 5 avelino on top of head x after sustaining fall into corner of wall Monday night. No injury elsewhere. Pt notes she called her PCP office to inform them of her fall. She benefitted from review of SL hip abduction exercise, SLR, and review of core stab program today. She notes mild soreness in L knee at end of session iced knee x10 minutes . 09/16/24; Pt notes she is discouraged regarding comments her son made regarding her mobility, however therapist encouraged her that she is doing very well. Pt will be leaving for [place] out of state later this week and we discussed some pool activities she could do to keep herself active while in the hot weather. 09/13/24 Pt doing well with regard to HEP program. 09/09/24: Pt reports improving knee pain overall since start of care. Pt has been performing stationary bike and walking 1/4 mile daily. Pt issued hip abduction for home program. 09/06/24: Pt improving SLR strength. Pt able to perform midrange on L, good ROM on R. 09/03/24: Pt doing better with respect to knee pain. Pt shown how to set-up wear/knee brace and educated to use sparingly to address support/pain. Pt weak in L SLR. Pt able to showcase education for proper technique of stair negotiation with use of std cane/railing. 08/30/24: Pt issued written HEP sheets: HS stretch, SKTC, piriformis stretch, posterior pelvic tilt, isometric contraction QS, SAQ for home program. Reviewed sequencing for stair negotiation with std cane but will benefit from future review (did better with L LE step down first, ascending R LE first). Pt trialed with ROCKTAPE application for L knee to reduce anterior knee pain (*handout issued for home and self-care). Pt given handouts. Pt is a RHD 79 y/o female, referred to PT from Dr. Kirk M17.0 PT eval and treat, bilateral primary osteoarthritis, bilateral. Modalities. TENS unit trial, myofascial release, lower extremity program signed by Dr. Kirk date of script 05/14/24. Pt expressing R>L knee pain for several years, since I was 69 history of past cortisone and gel injections six months ago. Pt has a right knee brace which she wears for gardening. She reports history of some lower back pain. Pt expressing concern for ability to ascend/descend stairs (admits goes down stairs backwards due to anterior knee pain), has a hard time get up from squat ((+) demonstrated posterior LOB at eval today) and report and anterior knee pain with prolonged walking. She notes past PT about a year ago but admits to being overwhelmed with too many exercises and non-compliance. She participates in the senior center [employer] classes but expresses concern for falls when working on hilly terrain in her garden and at home, I'm very afraid to fall. She lives alone does not usually use a cane but wants to learn how to for stairs as she has an upcoming trip to [place] in November and wants to take it in case she is fatigued. Nita appears to be an excellent candidate for therapy as she is motivated and has good self-awareness. Pt was shown how to ascend/descend stairs in a way to reduce stress on her R>L knee descending forward and was educated against going down the stairs backwards. Pt will benefit from attending skilled PT services 2x/week x 4 weeks to address impairments in strength, balance, and mobility. She reports she is active on the [employer] in her town and has two cats, likes to walk and stay active. PMH significant for compression fracture in L1. Reviewed log roll technique for body mechanics and bed mobility and was educated in the benefit of using ice for bilateral knee pain. PT Plan: 2x/week x 4 weeks [facility] strength core hip knee balance program Short Term Goals: 1. Pt will demonstrate SLR into flexion with good strength. (IR: L fair, R fair). 2. Pt will ascend/descend stairs step to with use of cane with good mechanics. 3. Pt will demonstrate hip abduction strength to 4/5. 4. Pt will demonstrate SLS to 10 seconds on each LE. 5. Initiate self care/HEP program for management of bilateral knee pain. Nursing Home Goals: 1. Strength hip abductors 5/5 B. (IR: Challenged R hip on 3R, L hip x 10R). 2. Pt will demonstrate floor recovery with good carryover and safety. 3. Demonstrate good functional squat with 3:3 trials with no posterior LOB. (IR: ((+) posterior LOB with return from flexed position). 4. Pt will demonstate I HEP and self care for management of knee pain/symptoms. 5. Knee AAROM>AROM functional 0 to 120 bilaterally (IR: L knee 0-115, R knee 0-118 with stiffness expressed) Electronically signed by: Katlyn Hayes, PT, DPT
--- NOTE | 2024-11-15 12:01 | MHC.PT.OD ---
[facility] [place] [facility] [place] [facility] [address] [place] [address] [address] [facility] [phone] F: [phone] F: [phone] F: [phone] Physical Therapy Daily Note Diagnosis: M17.0 PT eval and treat, bilateral primary osteoarthritis, bilateral. Modalities. TENS unit trial, myofascial release, lower extremity program signed by Dr. Kirk date of script 05/14/24 Date of Surgery: Date of Evaluation: 08/28/24 Date of Treatment: 11/15/24 Treatments to Date: Cancellations to Date: No Shows to Date: Authorized Visits: 16 Insurance End Date: Precautions/ Contraindications: Subjective: Nita returns from her trip to [place], she notes she will be seeing Dr. Kirk next week. She has not returned to [facility] activities due to construction there. Pain Score and Location: 05/13 R knee Objective Flowsheet: Tests & Measures see eval Exercises Seated NUSTEP level 2.5 x 15 minutes for warm-up. Addressed questions of SKTC stretch x 4R x 20 sec hold technique, SLR into flexion x 10R, review of HEP program to date, discussed and reviewed LTG for PT> goals of improving balance/confidence for walking on uneven terrain. AAROM flexion of the shoulder x 10 sec hold x 5R, standing scapular retraction x 2 set 10R, education re: towel roll for posture, seated balance, Review of self-taping for ROCKTAPE tibiofemoral joint in effort to increase tissue extensibility/reduce L knee pain. Review of stair negotiation ascending and descending with use of single rail (Left rail ascending and R rail descending to simulate dorothea envionment. We determined after trial and error that Nita felt more confident and looked more steady with ascending R LE first, descending R LE first on stair vs descending with L LE (had too much pain in R knee and led to more instability). Modalities Trialed pulsed US 20% duty cycle; 1 MHZ medial joint line of L knee x 8 minutes in effort to reduce inflammation and point specific area of sx. Assessment: 11/15/24: Pt returns from [place], notes her knees are overall feeling much better. She expresses ongoing concerns about keeping herself strong and would like to continue her PT for a bit longer to address higher level balance challenges/strengthening. She has excellent carryover of her home program. She appears to be doing very well despite this she states she would like consult with an orthopedist re: her knee pain. She will be seeing Dr. Kirk next week. 10/31/24: Pt expressing some L knee pain today, we reviewed carryover of home program. Pt will be leaving for [place] on Monday. Pt doing better with respect to L knee strength since start of care. 10/28/24; Pt expressing she is having more lateral L knee pain today. Completed US with some relief of sx. Pt will be leaving for [place] on 11/02/24. Good understanding of HEP program. Pt noted to perseverate on the potential of a PRP injection for her L knee. 10/24/24; Pt advancing in confidence/independence for walking on dynamic terrain and surfaces. Pt expressing some L>R knee pain at times resulting . 10/22/24: Pt doing well overall. Pt reports some L knee pain at times. Pt compliant and motivated. Pt expressing she has been feeling more confident at times but still feels uneasy on stairs. Completed ABC balance scale (see chart). 10/18/24: Pt shown floor recovery completed L>R and R>L. Pt better with L knee kneeling and R leg in front. Pt verbalized carryover. Pt with no LOB but verbalizes goal of advancing dynamic balance for stability. 10/14/24: Notes had a good trip to [place], did not need her cane, knees feeling better overall. Would like to extend her PT visits a few more weeks before her trip to [place] on 11/02/24 to address concerns for balance. Notes recently finishing prednisone and use of topical cream (received from urgent care) for rash on her chest/neck after coming home from her recent trip from [place]. Has not had much knee pain. Issued ABC balance scale for initial assessment (to bring in in next session with brinda). 09/23/24: Nita has attended 9 session of PT to date, demonstrating advancements>understanding in ROM/ strength of L>R LE>knee/core since start of care. She did express a personal history of fall last Monday, tripping over her vaccuum with side of foot while carrying soup when wearing socks at home, resulting in fall. Due to her carrying soup she did not put her hands out, notes falling forward and hitting head on corner of wall. She was not burned from soup and notes her bowl did not even break. Aside from head wound she was not injured elsewhere. (-) concussion, (-)severe injury per pt after ER visit. She was brought to the [facility] by her neighbor. She notes she was able to get up from the fall herself. She states she applied ice to top of head and knew she needed care due to bleeding and head trauma. She states she thought about calling 911 but instead elected to walk over to her neighbors/friends house. We discussed the benefit in researching life alert bracelet/necklaces wearable options, setting up vocal Keena for aided call services in the event she was on the floor at home unable to get up, importance of staying active in [facility], and keyless entry boxes to increase safety while promoting independence in the home. We discussed install of gripper painted stairs/an or traction strips for her cellar stairs (to speak with her contractor friend for this). I recommended she move her cat box upstairs so she may reduce need to so many stairs, but on the flip side she states she wants to do stairs which I understand her side of that. We discussed grab bar install in various places to improve record clerk salesperson/grab ability such as outside of shower/stairs in cellar, removal of throw rugs, and overall safety checklist. In addition to having a head CT at [facility], she was D/C home from the ER with 5 avelino top of her head. She went back to [facility] on 09/21/24 to have them taken out on Monday. Nita presents with lots of questions regarding knee OA> when it becomes time for a TKA. She was educated it is a case by case basis but usually her knees will let her know when she is ready due to pain/lack of gain with PT. She was encouraged that she seems to be doing very well right now, she notes pain when doing stairs and has been trying to maintain carryover of education from PT at home in her daily life. She does express pain on stairs which impacts her confidence. Due to her living alone she has concerns about TKA recovery, concerns for transportation/ lack of driving, and typical recovery timelines. We have addressed specific questions she has brought to the office surrounding conservative treatment options including PT> taping for relief of knee pain. She states she has had gel injections but has questions about PRP injections (notes mainly because her son has been pushing her to inquire about this treatments and surgery sooner than later). She expresses she would like to make an earlier with Dr. Kirk before her November appt to address her specific questions. Nita has implemented a gentle walking program and use of her stationary bike several times daily which have been helping her since start of care. At initial eval she had poor SLR strength and now she can do both legs with good ability. I have educated against her walking down the stairs backwards ( this is how she was previously negotiating stairs before PT). We have been working on improving her confidence and strength for stair climbing, step to pattern, and shown how to use a cane for her upcoming trips prn. She may benefit from speaking to you and/or consultation with an orthopedic surgeon not necessarily to book surgery but to discuss/address questions she has around her areas of inquiry> potential of future needs. Nita is scheduled for vacation next week () and has an upcoming trip to [place]. She is very compliant in her home program but I feel she would benefit from attending more PT to address fall risk, improve dynamic balance/reactions and strength/confidence for daily mobility before her trip to [place]. Thank you for your referral. 09/20/24: Pt had head CT, had 5 avelino on top of head x after sustaining fall into corner of wall Monday night. No injury elsewhere. Pt notes she called her PCP office to inform them of her fall. She benefitted from review of SL hip abduction exercise, SLR, and review of core stab program today. She notes mild soreness in L knee at end of session iced knee x10 minutes . 09/16/24; Pt notes she is discouraged regarding comments her son made regarding her mobility, however therapist encouraged her that she is doing very well. Pt will be leaving for [place] out of state later this week and we discussed some pool activities she could do to keep herself active while in the hot weather. 09/13/24 Pt doing well with regard to HEP program. 09/09/24: Pt reports improving knee pain overall since start of care. Pt has been performing stationary bike and walking 1/4 mile daily. Pt issued hip abduction for home program. 09/06/24: Pt improving SLR strength. Pt able to perform midrange on L, good ROM on R. 09/03/24: Pt doing better with respect to knee pain. Pt shown how to set-up wear/knee brace and educated to use sparingly to address support/pain. Pt weak in L SLR. Pt able to showcase education for proper technique of stair negotiation with use of std cane/railing. 08/30/24: Pt issued written HEP sheets: HS stretch, SKTC, piriformis stretch, posterior pelvic tilt, isometric contraction QS, SAQ for home program. Reviewed sequencing for stair negotiation with std cane but will benefit from future review (did better with L LE step down first, ascending R LE first). Pt trialed with ROCKTAPE application for L knee to reduce anterior knee pain (*handout issued for home and self-care). Pt given handouts. Pt is a RHD 79 y/o female, referred to PT from Dr. Kirk M17.0 PT eval and treat, bilateral primary osteoarthritis, bilateral. Modalities. TENS unit trial, myofascial release, lower extremity program signed by Dr. Kirk date of script 05/14/24. Pt expressing R>L knee pain for several years, since I was 69 history of past cortisone and gel injections six months ago. Pt has a right knee brace which she wears for gardening. She reports history of some lower back pain. Pt expressing concern for ability to ascend/descend stairs (admits goes down stairs backwards due to anterior knee pain), has a hard time get up from squat ((+) demonstrated posterior LOB at eval today) and report and anterior knee pain with prolonged walking. She notes past PT about a year ago but admits to being overwhelmed with too many exercises and non-compliance. She participates in the [facility] [employer] classes but expresses concern for falls when working on hilly terrain in her garden and at home, I'm very afraid to fall. She lives alone does not usually use a cane but wants to learn how to for stairs as she has an upcoming trip to [place] in November and wants to take it in case she is fatigued. Nita appears to be an excellent candidate for therapy as she is motivated and has good self-awareness. Pt was shown how to ascend/descend stairs in a way to reduce stress on her R>L knee descending forward and was educated against going down the stairs backwards. Pt will benefit from attending skilled PT services 2x/week x 4 weeks to address impairments in strength, balance, and mobility. She reports she is active on the [employer] in her town and has two cats, likes to walk and stay active. PMH significant for compression fracture in L1. Reviewed log roll technique for body mechanics and bed mobility and was educated in the benefit of using ice for bilateral knee pain. Pt expressing some intermittent L ache in L UE when driving. We reviewed some postural activities to ease potential. BP taken 120/70mmHg, HR 68 bpm, SP02 98%. PT Plan: Continue PT 1x/week for higher level balance program. Encouraged patient to seek out senior center/[employer]/gym for transition to HEP. Short Term Goals: 1. Pt will demonstrate SLR into flexion with good strength. (IR: L fair, R fair). 2. Pt will ascend/descend stairs step to with use of cane with good mechanics. 3. Pt will demonstrate hip abduction strength to 4/5. 4. Pt will demonstrate SLS to 10 seconds on each LE. 5. Initiate self care/HEP program for management of bilateral knee pain. [facility] Goals: 1. Strength hip abductors 5/5 B. (IR: Challenged R hip on 3R, L hip x 10R). 2. Pt will demonstrate floor recovery with good carryover and safety. 3. Demonstrate good functional squat with 3:3 trials with no posterior LOB. (IR: ((+) posterior LOB with return from flexed position). 4. Pt will demonstate I HEP and self care for management of knee pain/symptoms. 5. Knee AAROM>AROM functional 0 to 120 bilaterally (IR: L knee 0-115, R knee 0-118 with stiffness expressed) Electronically signed by: Katlyn Hayes, PT, DPT
== END 2025-02-03 14:45 | disposition home or self-care (01) ==
LOC: HO.PTS 12:06
PROVIDERS: Visit Provider Internal Medicine Rheumatology
DX: M17.0 Bilateral primary osteoarthritis of knee (principal)
CPT/HCPCS: 97035; 97110; 97116; 97140; 97161; 97530

== ENCOUNTER 2025-01-20 09:22 | Outpatient (REF) | payer MEDICARE, OTHER, SELFPAY ==
--- NOTE | ~2025-01-20 | XR_ITS ---
XR KNEE RT 3V XR KNEE LT 3V HISTORY: Bilateral knee pain. COMPARISON: None. TECHNIQUE: AP view bilateral knees standing, lateral and patellofemoral views of each knee. FINDINGS: RIGHT KNEE: No fracture, dislocation, or suspicious bone lesion. Tricompartmental osteoarthrosis, moderate to severe in the medial and patellofemoral compartments. Mild varus angulation of the joint. There is spurring of the tibial spines. Patellofemoral view demonstrates large marginal osteophytes and lateral patellar tilt. No evidence of joint effusion. Soft tissues demonstrate some heterotopic ossification medial to the tibial metaphysis, of doubtful clinical significance. Soft tissues otherwise demonstrate diffuse vascular calcifications. LEFT KNEE: No fracture, dislocation, or suspicious bone lesion. Tricompartmental osteoarthrosis, moderate to severe in the medial and patellofemoral compartments. Mild varus angulation of the joint. There is spurring of the tibial spines. Patellofemoral view demonstrates a large marginal osteophytes and lateral patellar tilt. No evidence of joint effusion. Soft tissues demonstrate diffuse vascular calcifications. XR/XR knee RT 3V IMPRESSION: 1. Relatively symmetric tricompartmental osteoarthrosis of both knees, moderate to severe in the medial and patellofemoral compartments. Mild varus angulation of both knee joints. 2. No significant joint effusion of either knee. 3. Vascular calcifications. Electronically signed by: Tyler Harris MD 01/20/2025 10:55 AM EDT
--- NOTE | ~2025-01-20 | XR_ITS ---
XR KNEE RT 3V XR KNEE LT 3V HISTORY: Bilateral knee pain. COMPARISON: None. TECHNIQUE: AP view bilateral knees standing, lateral and patellofemoral views of each knee. FINDINGS: RIGHT KNEE: No fracture, dislocation, or suspicious bone lesion. Tricompartmental osteoarthrosis, moderate to severe in the medial and patellofemoral compartments. Mild varus angulation of the joint. There is spurring of the tibial spines. Patellofemoral view demonstrates large marginal osteophytes and lateral patellar tilt. No evidence of joint effusion. Soft tissues demonstrate some heterotopic ossification medial to the tibial metaphysis, of doubtful clinical significance. Soft tissues otherwise demonstrate diffuse vascular calcifications. LEFT KNEE: No fracture, dislocation, or suspicious bone lesion. Tricompartmental osteoarthrosis, moderate to severe in the medial and patellofemoral compartments. Mild varus angulation of the joint. There is spurring of the tibial spines. Patellofemoral view demonstrates a large marginal osteophytes and lateral patellar tilt. No evidence of joint effusion. Soft tissues demonstrate diffuse vascular calcifications. XR/XR knee LT 3V IMPRESSION: 1. Relatively symmetric tricompartmental osteoarthrosis of both knees, moderate to severe in the medial and patellofemoral compartments. Mild varus angulation of both knee joints. 2. No significant joint effusion of either knee. 3. Vascular calcifications. Electronically signed by: Tyler Harris MD 01/20/2025 10:55 AM EDT
--- OUTSIDE RECORDS SUMMARY | 2025-01-20 10:29 | XMS_ITS | Encounter Summary ---
Author Organization [facility] Address [address] [place] [address] Phone Care Team Providers Care Hydraulic Rockbreaker Operator Name Role Phone Giles Cassidy MD Unavailable [phone] Maximino Kirk MD Unavailable [phone] Melissa Mendoza MD Primary Care Provider [phone] Melissa Mendoza MD Unavailable [phone] Encounter Details Date Type Department Care Team (Late st Contact Info) Description 01/30/2024 Procedure Pass [facility] - [address] [place] [address] Social History Tobacco Use Types Packs/Day Years [...] Care Team (Late st Contact Info) Description 03/05/2025 10:00 AM EST Office Visit [facility], Allergy and Critical Care Medicine [address] [place] [address] Fredy Villagomez MD [address] [place] [address] [email or web address] documented as of this encounter Visit Diagnoses Not on filedocumented in this encounter Additional Health Concerns Assessment Noted Time PHQ-2 Depression Total Score: 0 05/06/19 25 10:01 AM EST documented as of this encounter Care Teams Hydraulic Rockbreaker Operator Relationship Specialty Start Date End Date Melissa Mendoza MD [address] [place] [address] [email or web address] PCP - General Internal Medicine 06/07/23 Giles Cassidy MD [address] [place] [address] Insurance Assigned Provider 07/08/23 07/07/24 Maximino Kirk MD [address] [place] [address] Rheumatology 06/08/22 Melissa Mendoza MD [address] [place] [address], 2nd [place] [address] [email or web address] Insurance Assigned Provider 07/07/24 documented as of this encounter Additional Source Comments The information contained in this document represents components of the legal health record. It is not the complete legal health record.[facility]
--- OUTSIDE RECORDS SUMMARY | 2025-01-20 10:29 | XMS_ITS | Clinical Summary ---
Author Organization [facility] Address [address] [facility] [address] [place] [address] Phone Care Team Providers Care Manager Facility Name Role Phone Maximino Kirk MD Unavailable [phone] Melissa Mendoza A Primary Care Provider [phone] Melissa Mendoza MD Unavailable [phone] Allergies Active Allergy Reactions Criticality Noted Date Comments Codeine High 08/07/2020 Lactose 12/15/2021 Penicillins Rash High 08/07/2020 Medications romosozumab-aqqg (EVENITY SUBQ) 2 shots/month 3 Active CALCIUM ORAL Take by mouth. Ac tive ascorbic acid (VITAMIN C ORAL) Take by mouth. Active Medication-Free Text EUFIXIA GEL Active metroNIDAZOLE (METROGEL) 0.75 % (37.5mg/5 gram) vaginal gel Place vaginally daily as needed. Active levothyroxine (SYNTHROID, LEVOTHROID) 50 MCG tabletIndication s:Hypothyroidism , unspecified type Take 1 tablet (50 mcg total) by mouth daily. 90 tablet 3 5 Active Active Problems Problem Noted Date Diagnosed Date Hypopigmented skin lesion 05/04/2023 Sprain of lumbosacral joint or ligament 06/11/19 23 Assessment & Plan (06/10/2022 1:44 PM EST): [...] Encounters Date Type Department Care Team Description 12/09/2024 Telephone [facility] [address] [place] [address] [address] [place] [address] Melissa Mendoza MD COVID-19 Inquiry from Last 3 Months Immunizations Immunization Administration Dates Next Due COVID-19 (Pre-01/23) Moderna Vaccine, mRNA, PF 05/10/2021,04/12/2021 INFLUENZA, SPLIT VIRUS, TRIVALENT PF 03/25/2013, 04/12/2012 INFLUENZA, SPLIT VIRUS, TRIV ALENT W/ PRESERVATIVE IM 02/01/2014,02/21/2011,04/09/2010,12/29 Influenza High-Dose Quadriva lent Preservative Free IM 01/07/2020 Influenza High-Dose Trivalen t Preservative Free IM 05/06/2024,12/26/2018,12/25/2017,12/23,12/18/2015,12/15/2014 Influenza Quadrivalent Adjuv anted Preservative Free IM 01/12/2022 Influenza Quadrivalent MDCK Preservative Free IM 01/30/2023 Influenza Quadrivalent Prese rvative Free IM 02/08/2021 Influenza, Unspecified Formulation 01/12,01/30/2008,02/20/2003,03/21 Novel [id number], Injectable 03/25/2009 Pneumococcal conjugate PCV13 12/15/2014 Pneumococcal [...] 71 05/06/2024 10:29 AM EST Temperature 36.1 C (96.9 F) 07/14/2023 2:27 PM EDT Respiratory Rate 16 05/04/2023 9:08 AM EST Oxygen Saturation 98% 05/06/2024 10:29 AM EST Inhaled Oxygen Concentration - - Weight 75.3 kg (166 lb) 06/05/2024 7:46 PM EST Height 152.4 cm (5') 06/05/2024 7:46 PM EST Body Mass Index 32.42 06/05/2024 7:46 PM EST Plan of Treatment Upcoming Encounters Date Type Department Care Team ([facility] st Contact Info) Description 03/05/2025 10:00 AM EST Office Visit [facility] Pulmonary, Allergy and Critical Care Medicine [address] [place] [address] Fredy Villagomez MD [address] [address] Health Maintenance Due Date Last Done Comments RSV VACCINE (1 - 1-dose 75+ series) 08/12/2019 INFLUENZA VACCINE (#1) 2024 , 01/30/2023, 01/30/2023, Additional history exists COVID-19 VACCINE ( season) 2024 05/10/2021, 04/12/2021 DEPRESSION SCREENING 05/06/2025 05/06/2024 TSH LEVEL 05/17/2025 05/17/2024, 02/04/2023, 02/14/2022, Additional history exists LIPID PANEL 05/17/2029 [...] 05/17/2024 9:48 AM EST Other specified hypothyroidism HM DEXA SCAN Routine 05/06/2024 11:49 AM EST from Last 3 Months or Most Recently Relevant to Health Maintenance Results * TSH with reflex (05/17/2024 9:48 AM EST) TSH 3.08 0.27 - 4.20 uIU/mL [facility] Blood 05/17/2024 9:48 AM EST 05/17/2024 9:52 AM EST us Melissa Mendoza MD LAB BLOOD ORDERABLES Final Re sult [facility] [address] [place] [address] * (ABNORMAL) Lipid panel (05/17/2024 9:48 AM EST) HDL 61 mg/dL [facility] Comment: Interpretation <40 mg/dL: Low HDL cholesterol (major risk factor for CHD) Greater than or equal to 60 mg/dL: High HDL cholesterol ( negative risk factor for CHD) HDL - cholesterol is affected by a number of factors, e.g. smoking, excerise, hormones, sex and age. CHOLESTEROL 211 0 - 240 mg/dL [facility] TRIGLYCERIDES 75 30 - 160 mg/dL [facility] LDL 135(H) 50 - 129 mg/dL [facility] Comment: LDL levels in terms of risk for coronary heart disease: <100 mg/dL: Optimal 100-129 mg/dL: Near or above optimal 130-159 mg/dL: Borderline high 160-189 mg/dL: High >190 mg/dL: Very High CARDIAC RISK RATIO 3.5 3.3 - 4.4 [facility] Blood 05/17/2024 9:48 AM EST 05/17/2024 9:51 AM EST us Melissa Mendoza MD LAB BLOOD ORDERABLES Final Re sult [facility] [address] [place] [address] * DEXA SCAN (05/06/2024 11:49 AM EST) us Historical Provider HEALTH MAINTENANCE Final Result from Last 3 Months or Most Recently Relevant to Health Maintenance Insurance MEDICARE PART A & B [facility] MEDICARE SUPPLEMENT MEDICARE PART A & B MEDICARE SUPPLEMENT MEDICARE PART A & B [facility] MEDICARE SUPPLEMENT MEDICARE PART A & B MEDICARE SUPPLEMENT MEDICARE PART A & B Member Subscriber Plan / Payer (Ef fective 2009-) Name:Nita Mcfarlane Member ID:[id number] Relation to Subscriber:Self Name:Nita Mcfarlane Subscriber ID:[id number] Payer ID:[id number] Group ID:Not on file Type:Medicare Address: [place] [address] [place] MEDICARE SUPPLEMENT MEDICARE PART A & B Member Subscriber Plan / Payer (Ef fective 2009-Present) Name:DenysFanyh Member ID:[id number] Relation to Subscriber:Self Name:DeynsNita Subscriber ID:[id number] Payer ID:[id number] Group ID:Not on file Type:Medicare Address: [employer] [facility] [address] [address] [facility] MEDICARE SUPPLEMENT MEDICARE PART A & [place] [address] [place] [address] MEDICARE SUPPLEMENT MEDICARE PART A & B MEDICARE SUPPLEMENT MEDICARE PART A & B [facility] MEDICARE SUPPLEMENT Care Teams Manager Facility Relationship Specialty Start Date End Date Melissa Mendoza MD [address] [place] [address] maria PCP - General Internal Medicine 06/07/23 Maximino Kirk MD Rheumatology 06/08/22 Melissa Mendoza MD [address] [place] [address] [email or web address] Insurance Assigned Provider 07/07/24 Additional Source Comments The information contained in this document represents components of the legal health record. It is not the complete legal health record.[facility]
--- OUTSIDE RECORDS SUMMARY | 2025-01-20 10:29 | XMS_ITS | Encounter Summary ---
Author Organization [facility] Address [address] [place] [address] [place] [address] Phone Care Team Providers Care Cleaning And Maintenance Worker Name Role Phone Gurvinder Margareth Arboleda CNP Unavailable [phone] Margareth Hollins WET POUR SUPERVISOR Primary Care Provider Giles Cassidy MD Unavailable [phone] Maximino Kirk MD Unavailable [phone] Magalie Villatoro PHOTORESIST PRINTER Primary Care Provider [phone] Melissa Mendoza MD Primary Care Provider [phone] Melissa Mendoza MD Unavailable [phone] Encounter Details Date Type Department Care Team (Late st Contact Info) Description 12/06/2021 Procedure Pass [facility], [address] [place] [address] Social History Tobacco Use Types Packs/Day Years [...] Pulmonary, Allergy and Critical Care Medicine [address] [place] [address] Fredy Villagomez MD [address] [place] [address] [email or web address] documented as of this encounter Visit Diagnoses Not on filedocumented in this encounter Additional Health Concerns Infection Onset Date Last Indicated Resolved Time COVID-19 04/01/2023 04/01/2023 04/22/2023 1:21 AM EST Assessment Noted Time PHQ-2 Depression Total Score: 0 02/09/20 9:51 AM EST documented as of this encounter Care Teams Cleaning And Maintenance Worker Relationship Specialty Start Date End Date Margareth Hollins CNP [address] [place] [address] [email or web address] PCP - General Internal Medicine 07/03/20 12/05/22 Magalie Villatoro NP [address] [place] [address] [email or web address] PCP - General Family Medicine 12/06/22 06/06/23 Melissa Mendoza MD [address] [place] [address] [email or web address] PCP - General Internal Medicine 06/07/23 Margareth Hollins CNP [address] [place] [address] [email or web address] [email or web address] Medicine 07/03/20 06/07/22 Giles Cassidy MD [address] [place], [place] [email or web address] Insurance Assigned Provider 07/08/23 07/07/24 Maximino Kirk MD [address] [place] [address] Rheumatology 06/08/22 Melissa Mendoza MD [address] [place] [address], 2nd [place] [address] [email or web address] Insurance Assigned Provider 07/07/24 documented as of this encounter Additional Source Comments The information contained in this document represents components of the legal health record. It is not the complete legal health record.[facility]
--- OUTSIDE RECORDS SUMMARY | 2025-01-20 10:29 | XMS_ITS | Encounter Summary ---
Author Organization [facility] Address [address] [place] [address] Phone Care Team Providers Care Engineering Analyst Name Role Phone Giles Cassidy MD Unavailable Maximino Kirk MD Unavailable Magalie Villatoro NP Primary Care Provider [phone] Melissa Mendoza MD Primary Care Provider Melissa Mendoza MD Unavailable [phone] Encounter Details Date Type Department Care Team (Late st Contact Info) Description 12/20/2022 Procedure Pass [facility] - [address] [place] [address] Social History Tobacco Use Types Packs/Day Years [...] [facility] Pulmonary, Allergy and Critical Care Medicine [address] [place] [address] Fredy Villagomez MD [address] [place] [address] [email or web address] documented as of this encounter Visit Diagnoses Not on filedocumented in this encounter Additional Health Concerns Infection Onset Date Last Indicated Resolved Time COVID-19 04/01/2023 04/01/2023 04/22/2023 1:21 AM EST Assessment Noted Time PHQ-2 Depression Total Score: 1 02/09/20 22 9:36 AM EST documented as of this encounter Care Teams Engineering Analyst Relationship Specialty Start Date End Date Magalie Villatoro NP [address] [place] [address] PCP - General Family Medicine 12/06/22 06/06/23 Melissa Mendoza MD [address] [place] [address] PCP - General Internal Medicine 06/07/23 Giles Cassidy MD [address] [place] [address] Insurance Assigned Provider 07/08/23 07/07/24 Maximino Kirk MD [address] [place] [address] Rheumatology 06/08/22 Melissa Mendoza MD [address] [place] [address], 2nd [place] [address] [email or web address] Insurance Assigned Provider 07/07/24 documented as of this encounter Additional Source Comments The information contained in this document represents components of the legal health record. It is not the complete legal health record.[facility]
--- OUTSIDE RECORDS SUMMARY | 2025-01-20 10:29 | XMS_ITS | Encounter Summary ---
Author Organization [facility] Address [address] [place] [address] [place] [address] Phone Care Team Providers Care Forming Process Worker Name Role Phone Gurvinder Margareth Arboleda CNP Unavailable Margareth Hollins BRICK DROPPER Primary Care Provider Giles Cassidy MD Unavailable [phone] Maximino Kirk MD Unavailable Magalie Villatoro COLLEGE BASKETBALL COACH Primary Care Provider [phone] Melissa Mendoza MD Primary Care Provider [phone] Melissa Mendoza MD Unavailable [phone] Encounter Details Date Type Department Care Team (Late st Contact Info) Description 02/07/2022 Procedure Pass [facility] - [address] [place] [address] Social History Tobacco Use Types Packs/Day Years [...] Pulmonary, Allergy and Critical Care Medicine [address] [place] [address] Fredy Villagomez MD [address] [place] [address] documented as of this encounter Visit Diagnoses Not on filedocumented in this encounter Additional Health Concerns Infection Onset Date Last Indicated Resolved Time COVID-19 04/01/2023 04/01/2023 04/22/2023 1:21 AM EST Assessment Noted Time PHQ-2 Depression Total Score: 1 02/09/20 9:36 AM EST documented as of this encounter Care Teams Forming Process Worker Relationship Specialty Start Date End Date Margareth Hollins CNP [address] [place] [address] PCP - General Internal Medicine 07/03/20 12/05/22 Magalie Villatoro NP [address] [place] [address] PCP - General Family Medicine 12/06/22 06/06/23 Melissa Mendoza MD [address] [place] [address] PCP - General Internal Medicine 06/07/23 Margareth Hollins CNP [address] [place], [place] maria Internal Medicine 07/03/20 06/07/22 Giles Cassidy MD [address] [place], [place] [email or web address] Insurance Assigned Provider 07/08/23 07/07/24 Maximino Kirk MD [address] [place] [address] Rheumatology 06/08/22 Melissa Mendoza MD [address] [place] [address], 2[address] [place] [address] maria [email or web address] Insurance Assigned Provider 07/07/24 documented as of this encounter Additional Source Comments The information contained in this document represents components of the legal health record. It is not the complete legal health record.[facility]
--- OUTSIDE RECORDS SUMMARY | 2025-01-20 10:30 | XMS_ITS | Encounter Summary ---
Author Organization [facility] Address [address] [place] [address] Phone Care Team Providers Care Mill Manager Name Role Phone Giles Cassidy MD Unavailable [phone] Maximino Kirk MD Unavailable Melissa Mendoza MD Primary Care Provider [phone] Melissa Mendoza MD Unavailable [phone] Encounter Details Date Type Department Care Team (Late st Contact Info) Description 05/06/2024 Procedure Pass [facility], [address] [place] [address] Social History Tobacco Use Types Packs/Day Years [...] Pulmonary, Allergy and Critical Care Medicine 10 [facility] [place] [address] Fredy Villagomez MD [address] [address] documented as of this encounter Visit Diagnoses Not on filedocumented in this encounter Additional Health Concerns Assessment Noted Time PHQ-2 Depression Total Score: 0 05/06/19 10:01 AM EST documented as of this encounter Care Teams Mill Manager Relationship Specialty Start Date End Date Melissa Mendoza MD [address] [place] [address] PCP - General Internal Medicine 06/07/23 Giles Cassidy MD [address] [place] [address] [email or web address] Insurance Assigned Provider 07/08/23 07/07/24 Maximino Kirk MD [address] [place] [address] Rheumatology 06/08/22 Melissa Mendoza MD [address] [place] [address] Insurance Assigned Provider 07/07/24 documented as of this encounter Additional Source Comments The information contained in this document represents components of the legal health record. It is not the complete legal health record.[facility]
--- OUTSIDE RECORDS SUMMARY | 2025-01-20 10:30 | XMS_ITS | Patient Health Record ---
Author Organization [facility] Address [address] [place] [address] Care Team Providers Care Catering Driver Name Role Phone Caron Macias Primary Care Provider Irina Vazquez Unavailable [phone] Allergies Allergen (clinical drug ingredient) Drug/Non Drug Allergy documented on EMR Reaction Allergy Type Onset Date Status Penicillin hives Drug Allergy Active codeine Codeine nausea Drug Allergy Active Reason For Referral No Information Medications Medication SIG (Take, Route, Frequency, Duration) Notes Start Date End Date Status Clotrimazole-Betamethasone 1-0.05 % 1 application Externally Twice a day Active Soolantra 1 % 1 application Import Specialist ally Once a day Active Levothyroxine Sodium [...] Problem Acquired hammer toe of right foot (5405497656572324) Other hammer toe(s) (acquired), right foot (M20.41) Active confirmed Problem Acquired hammer toe of left foot (7034968247293368) Other hammer toe(s) (acquired), left foot (M20.42) Active confirmed Problem Localized, primary osteoarthritis of the ankle and/or foot (771605414) Primary osteoarthrit is, right ankle and foot (M19.071) Active confirmed Problem Localized, primary osteoarthritis of the ankle and/or foot (518846171) Primary osteoarthrit is, left ankle and foot (M19.072) Active confirmed Plan Of Treatment No Information Insurance Providers Payer Name Payer Address Payer Phone Subscriber Number Group Number Insured Name Patient Relationship to Insured Coverage Start Date Coverage End Date Medicare National [employer] [address] [place] [address] [id number] Nita Mcfarlane Self - patient is the insured [address] [facility] [place] [address] [id number] Nita Mcfarlane Self - patient is the insured Medical (General) History Medical History History ICD Code Anxiety Arthritis Thyroid disorder Measles Mumps Chicken pox Cataracts Depression Surgical History Surgery Date(Month/Year) Tubligation 1999 cataract surgery 10/2019
--- OUTSIDE RECORDS SUMMARY | 2025-01-20 10:30 | XMS_ITS | Encounter Summary ---
Author Organization [facility] Address [address] [place] [address] [place] [address] Phone Care Team Providers Care Vending Machine Filler Name Role Phone Margareth Hollins CNP Unavailable [phone] Margareth Hollins PRICING COORDINATOR Primary Care Provider Giles Cassidy MD Unavailable [phone] Maximino Kirk MD Unavailable Magalie Villatoro ORTHOPEDICS TEACHER Primary Care Provider Melissa Mendoza MD Primary Care Provider [phone] Melissa Mendoza MD Unavailable [phone] Encounter Details Date Type Department Care Team (Late Contact Info) Description 02/11/2021 Ancillary Orders [facility] [address] [place], [place] [id number] System, Provider Not In, [place] [address] Social History Tobacco Use Types Packs/Day Years [...] Encounters Date Type Department Care Team (Late Contact Info) Description 03/05/2025 10:00 AM EST Office Visit [facility] Pulmonary, Allergy and Critical Care Medicine 10 [place] [address] Fredy Villagomez MD [address] [place] [address] [email or web address] documented as of this encounter Results * [...] documented as of this encounter Care Teams Vending Machine Filler Relationship Specialty Start Date End Date Margareth Hollins CNP [address] [place] [address] [email or web address] PCP - General Internal Medicine 07/03/20 12/05/22 Magalie Villatoro NP [address] [place] [address] [email or web address] PCP - General Family Medicine 12/06/22 06/06/23 Melissa Mendoza MD [address] [place] [address], 2nd [place] [address] [email or web address] PCP - General Internal Medicine 06/07/23 Margareth Hollins CNP [address] [place] [address] [email or web address] Medicine 07/03/20 06/07/22 Giles Cassidy MD [address] [place] [address] [email or web address] Insurance Assigned Provider 07/08/23 07/07/24 Maximino Kirk MD [address] [place] [address] Rheumatology 06/08/22 Melissa Mendoza MD [address] [place] [address], 2nd [place] [address] [email or web address] Insurance Assigned Provider 07/07/24 documented as of this encounter Additional Source Comments The information contained in this document represents components of the legal health record. It is not the complete legal health record.[facility]
--- OUTSIDE RECORDS SUMMARY | 2025-01-20 10:30 | XMS_ITS | Clinical Summary ---
Author Organization [employer] [facility] Address [address] [place] [address] Care Team Providers Care Heavy Duty Diesel Mechanic Name Role Phone Margareth Hollins PUBLIC HEALTH TECHNICIAN Primary Care Provider Allergies Active Allergy Reactions [...] mcg total) by mouth 8 Active Immunizations Immunization Administration Dates Next Due Flucelvax Trivalent PFS [...] Adults 18 yrs or above (or HM Modifier)([facility]) 1963 SUNNY Screening: Once using ST OP-BANG Questionnaire for Adults with Conditions or high BMI([facility]) 1963 SDOH Screening Reminder: Fabiana moreno for all adults ([facility]) 1963 Tobacco Smoking Cessation: i n Adults excluding Women: Behavioral and Pharmacotherapy Interventions ([facility]) 1963 DTaP/Tdap/Td Vaccines ([facility]) (1 - Tdap) 08/12/1963 Pneumococcal Vaccination Scr eening: Patients 50+ yrs of age ([facility]) (1 of 1 - PCV) 1994 Zoster/Shingles Vaccine Seri es Screening: Adults aged 18+ yrs (or HM Modifiers)([facility]) (1 of 2) 1994 Osteoporosis Screening to Pr event Fractures: Women aged 65 years+ ([facility]) 2009 RSV Vaccines (1 - 1-dose 75+ series) 08/12/2019 Flu Vaccination: Ages 65+: Y early High Dose Recommended (or Modifier)([facility]) 11/01/2024 01/30/2023 COVID-19 Vaccine Screening: Initial Series and Booster Status ([facility]) ( season) 2024 Medical Devices Not on file Insurance MEDICARE Care Teams Heavy Duty Diesel Mechanic Relationship Specialty Start Date End Date Margareth Hollins NP [address] [place] [address] PCP - General Obstetrics and Gynecology 10/09/20
--- OUTSIDE RECORDS SUMMARY | 2025-01-20 10:30 | XMS_ITS | Encounter Summary ---
Author Organization [facility] Address [address] [facility] [address] [place] [phone] Phone Care Team Providers Care Chair Caner Name Role Phone Giles Cassidy MD Unavailable Maximino Kirk MD Unavailable [phone] Magalie Villatoro PURCHASING MANAGER/SALES Primary Care Provider Melissa Mendoza MD Primary Care Provider Melissa Mendoza MD Unavailable Encounter Details Date Type Department Care Team (Late st Contact Info) Description 12/20/2022 Transcribe Orders Virtual Department [address] [place] [address] Magalie Villatoro, PURCHASING MANAGER/SALES [address] [facility] [address] [place] [address] [email or web address] Breast screening (Primary Dx) Social History Tobacco [...] Upcoming Encounters Date Type Department Care Team ([facility] st Contact Info) Description 03/05/2025 10:00 AM EST Office Visit [facility] Pulmonary, Allergy and Critical Care Medicine [address] [place] [address] Fredy Villagomez MD [address] [place] [phone] documented as of this encounter Results * BI MAMMOGRAM SCREENING WITH TOMOSYNTHESIS WITH CAD (BILATERAL) (03/17/2023 10:53 AM EST) Anatomical Region Laterality Modality Breast Left, Breast Right, Breast Bilateral Bila teral Mammography 03/19/2023 8:05 PM EST Impressions 03/21/2023 5:36 PM EST No mammographic signs of malignancy. Annual screening is recommended. BI-RADS CATEGORY: 1 - Negative. DENSITY: There are scattered fibroglandular densities. Narrative 03/21/2023 5:36 PM EST Bilateral mammography is performed in conjunction with computed aided detection. 3-D tomography along with 2-D C view imaging was also performed. Comparison made to previous dated as far back as 12/23/2016 and as recent as 03/14/2022. No suspicious masses, areas of architectural distortion or suspicious microcalcifications. Stable lucent centered calcifications with benign characteristics on [...] densities. Magalie Villatoro NP IMG MG EXAMS Final Result documented in this encounter Visit Diagnoses Diagnosis Breast screening- Primary Breast screening, unspecified Breast screening Breast screening, unspecified documented in this encounter Additional Health Concerns Infection Onset Date Last Indicated Resolved Time COVID-19 04/01/2023 04/01/2023 04/22/2023 1:21 AM EST Assessment Noted Time PHQ-2 Depression Total Score: 1 02/09/20 9:36 AM EST documented as of this encounter Care Teams Chair Caner Relationship Specialty Start Date End Date Magalie Villatoro PURCHASING MANAGER/SALES [address] [place] [phone] PCP - General Family Medicine 12/06/22 06/06/23 Melissa Mendoza MD [address] [place] [address], [address] [place] [address] PCP - General Internal Medicine 06/07/23 Giles Cassidy MD [address] [place] [phone] Insurance Assigned Provider 07/08/23 07/07/24 Maximino Kirk MD [address] [place] [phone] Rheumatology 06/08/22 Melissa Mendoza MD [address] [place] [address], [address] [place] [address] [email or web address] Insurance Assigned Provider 07/07/24 documented as of this encounter Additional Source Comments The information contained in this document represents components of the legal health record. It is not the complete legal health record.[facility]
--- OUTSIDE RECORDS SUMMARY | 2025-01-20 10:30 | XMS_ITS | Encounter Summary ---
Author Organization [facility] Address [address] [place] [address] [place] [address] Phone Care Team Providers Care Search Developer Name Role Phone Gurvinder Margareth Arboleda CNP Unavailable Margareth Hollins PARTS CLEANER Primary Care Provider Giles Cassidy MD Unavailable [phone] Maximino Kirk MD Unavailable Magalie Villatoro FIRER POWERHOUSE Primary Care Provider Melissa Mendoza MD Primary Care Provider Melissa Mendoza MD Unavailable [phone] Encounter Details Date Type Department Care Team (Late Contact Info) Description 02/08/2021 Procedure Pass [facility] - [address] [place] [address] Social History Tobacco Use Types Packs/Day Years [...] Pulmonary, Allergy and Critical Care Medicine [address] [place] [address] Fredy Villagomez MD [address] [place] [address] [email or web address] documented as of this encounter Visit Diagnoses Not on filedocumented in this encounter Additional Health Concerns Infection Onset Date Last Indicated Resolved Time COVID-19 04/01/2023 04/01/2023 04/22/2023 1:21 AM EST Assessment Noted Time PHQ-2 Depression Total Score: 0 02/09/20 9:51 AM EST documented as of this encounter Care Teams Search Developer Relationship Specialty Start Date End Date Margareth Hollins CNP [address] [place] [address] [email or web address] PCP - General Internal Medicine 07/03/20 12/05/22 Magalie Villatoro NP [address] [place] [address] [email or web address] PCP - General Family Medicine 12/06/22 06/06/23 Melissa Mendoza MD [address] [place] [phone] [email or web address] PCP - General Internal Medicine 06/07/23 Margareth Hollins CNP [address] [place] [address] [email or web address] Medicine 07/03/20 06/07/22 Giles Cassidy MD [address] [place] [address] Insurance Assigned Provider 07/08/23 07/07/24 Maximino Kirk MD [address] [place] [phone] Rheumatology 06/08/22 Melissa Mendoza MD [address] [place] [address], [address] [place] [address] [email or web address] Insurance Assigned Provider 07/07/24 documented as of this encounter Additional Source Comments The information contained in this document represents components of the legal health record. It is not the complete legal health record.[facility]
== END 2025-01-20 09:23 | disposition home or self-care (01) ==
LOC: HO.HOSX 09:22
PROVIDERS: Visit Provider Orthopaedic Surgery
DX: M17.0 Bilateral primary osteoarthritis of knee (principal); Z79.899 Other long term (current) drug therapy
CPT/HCPCS: 73562; 99212

== ENCOUNTER 2025-01-20 10:34 | Outpatient (AMB) | payer MEDICARE, OTHER, SELFPAY ==
[2025-01-20 10:58] VITALS: BMI 30.9
--- NOTE | 2025-01-20 10:58 | A.OFFVIS_ITS ---
Vital Signs 01/20/25 10:58 Height 5 ft Weight 158 lb BMI 30.9 Intake Visit Reasons: New Pt - Bilateral Knee OA - Rheumatology Referral Intake Note: Nita is an 79 year old female who presents today as a new patient visit with complaints of Bilateral Knee Pain. She has been a patient of Rheumatology, Dr. Kirk, where she has been receiving cortisone and gel injections for bilateral knees that have lessened in effectiveness. Today she presents to discuss PRP vs TKA. States her right is worse, she has difficulty with stairs, squatting and getting up from a squatting potion. Hx of cortisone injection and gel injection about 1 year ago and helped for a while. Hx of Osteoporosis BMI: 30.9 (5' 158LBS) PCP: Melissa Mendoza Allergies Penicillins Allergy (Mild, Verified 01/20/25 11:00) Hives codeine Adverse Reaction (Mild, Verified 01/20/25 11:00) dry heaves HPI HPI New Pt - Bilateral Knee OA - Rheumatology Referral: Details: Nita is an 79 year old female who presents today as a new patient visit with complaints of Bilateral Knee Pain. She has been a patient of Rheumatology, Dr. Kirk, where she has been receiving cortisone and gel injections for bilateral knees that have lessened in effectiveness. Today she presents to discuss PRP vs TKA. States her right is worse, she has difficulty with stairs, squatting and getting up from a squatting potion. Hx of cortisone injection and gel injection about 1 year ago and helped for a while. Hx of Osteoporosis BMI: 30.9 (5' 158LBS) PCP: Melissa Mendoza Left worse than right. Interested in PRP. Can walk a mile and squat but getting up and down stairs and getting up from a deep squat. Overall she does not feel that the quality of her life is diminished in she states that she has good motion and can walk without pain. Physical Exam Exam Exam: Pleasant woman in no acute distress. She has full range of motion bilateral knees. Normal gait. Mild retropatellar tenderness to palpation. Vital Signs: BMI result Body Mass Index 30.9 Results Reviewed Results Reviewed: I personally reviewed relevant radiographs. Severe bilateral knee OA left greater than right Assessment & Plan Assessment & Plan (1) Osteoarthritis of knees, bilateral: Comment: Initially she had improvement in pain after Euflexxa 04/2024-05/2024 but then pain returned. PT has been helping with knee strengthening. She has failed cortisone injections in the past ([facility] records). She is having pain with activity. We discussed medical management of knee pain from osteoarthritis with gabapentin or duloxetine or geniculate nerve block. We also discussed recent data that suggests platelet rich plasma may provide more benefit than hyaluronic acid injection (PMID: [id number]). She would like to have surgical opinion about PRP versus alternative surgical options (arthroscopic procedures). She would like to delay knee replacement. We [facility]. Code(s): M17.0 - Bilateral primary osteoarthritis of knee Category: Medical Qualifiers: Osteoarthritis type: primary Qualified Code(s): M17.0 - Bilateral primary osteoarthritis of knee Plan: This is a healthy 79-year-old active woman with severe radiographic osteoarthritis but her symptoms are not significant enough to warrant arthropl asty. Her primary complaint is pain with stairs or standing from a deep squat. I do not think arthroplasty would reliably benefit her and would be overly aggressive. At this point in time I would recommend PRP injections. We had a long discussion with these and I will send her to see Dr. Gloria. For anterior knee pain genicular nerve ablation can also be considered. She may indeed need a knee replacement in the future but at this time that is not appropriate. Orders: Orders XR knee RT 3V Today M25.561 - Pain in right knee XR knee LT 3V Today M25.562 - Pain in left knee Coding Level of Care Code Est Pt Level 4 (85173) Diagnoses Primary osteoarthritis of both knees M17.0 Osteoarthritis type: primary
== END 2025-01-20 11:29 | disposition home or self-care (01) ==
LOC: HO.HOS 10:34
PROVIDERS: PCP Internal Medicine; Visit Provider Orthopaedic Surgery
DX: M17.0 Bilateral primary osteoarthritis of knee (principal)
CPT/HCPCS: 99213

== ENCOUNTER → 2025-01-20 10:38 | Outpatient (BNV) | payer MEDICARE, OTHER, SELFPAY | PROVIDERS: Visit Provider Radiology Diagnostic Radiology | DX: M17.0 Bilateral primary osteoarthritis of knee (principal) | CPT/HCPCS: 73562 ==

== ENCOUNTER 2025-03-10 12:59 | Outpatient (AMB) | payer MEDICARE, OTHER, SELFPAY ==
--- OUTSIDE RECORDS SUMMARY | 2025-03-05 10:00 | XMS_ITS | Encounter Summary ---
Author Organization [facility] Address [address] [facility] [address] [place] [address] Phone Care Team Providers Care Water Aerobics Instructor Name Role Phone Maximino Kirk MD Unavailable [phone] Melissa Mendoza MD Primary Care Provider [phone] Melissa Mendoza MD Unavailable [phone] Reason for Referral * Sleep Center - New Request Specialty Diagnoses / Procedures Referred By Shruthi salmon Referred To Contact Sleep Medicine Diagnoses Apnea Snoring Procedures Polysomnography Fredy Villagomez MD [address] [address] Phone: tel: fax: [email or web address] Referral ID Status Reason Start Date Expiration Date V isits Requested Visits Authorized [id number] New Request 03/05/2025 1 1 Reason for Visit * Reason Comments New Patient * Consultation (Within 2 weeks) - New Request Specialty Diagnoses / Procedures Referred By Shruthi salmon Referred To Contact Diagnoses At risk for sleep apnea Melissa Mendoza MD [address] [address] Phone: tel: fax: [email or web address] [facility] [address] [place] [address] Phone: tel: Referral ID Status Reason Start Date Expiration Date V isits Requested Visits Authorized [id number] New Request 08/13/2024 08/12/2025 1 1 Encounter Details Date Type Department Care Team (Late st Contact Info) Description 03/05/2025 10:00 AM EST Office Visit [facility] Pulmonary, Allergy and Critical Care Medicine [address] [facility] [place] [address] Fredy Villagomez MD [address] [address] [email or web address] Apnea; Snoring; Daytime sleepiness Social History Tobacco Use Types Packs/Day Years [...] on file documented as of this encounter Last Filed Vital Signs Vital Sign Reading Time Taken Comments Blood Pressure 108/60 03/05/2025 9:33 AM EST Pulse 60 03/05/2025 9:33 AM EST Temperature 36.5 C (97.7 F) 03/05/2025 9:33 AM EST Respiratory Rate - - Oxygen Saturation 98% 03/05/2025 9:33 AM EST Inhaled Oxygen Concentration - - Weight - - Height 152.4 cm (5') 03/05/2025 9:33 AM EST Body Mass Index - - documented in this encounter Progress Notes * Fredy Villagomez MD - 03/05/2025 10:00 AM EST 03/05/2025 Nita Mcfarlane [id number] HPI: Patient presenting for new sleep evaluation today. According to the patient, there has been a suspicion of obstructive sleep apnea. Additionally, she recently had an cognitive function testing and it was recommended during that evaluation that she rule out obstructive sleep apnea. The patient's ex- has noted the patient snores. There have also been witnessed apneas. Last witnessed sleep about 3 years ago. Of note the patient would not characterize herself as someone with excessive sleepiness, she clearly notes that she gets sleepy in the mid-to-late afternoon hours, particularly if not stimulated. Shecould nap at that time. She denies receiving any reports of abnormal motions or jerking movements at night, sleepwalking, sleep talking or dream enactment behaviors. No hypnopompic or sleep onset paralysis. Her typical bedtime is 10 PM. Most evenings she falls asleep within 30 minutes and stays asleep most of the evening without significant sleep loss. Occasionally she will have sleep maintenance insomnia about once or twice a month. Usually loses about an hour sleep but that insomnia. Her typical wake up time is 6 AM. 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 Reid DILATION AND CURETTAGE OF UTERUS menorrhagia TUBAL LIGATION Current Outpatient Medications Medication Sig Dispense Refill Last Dispense CALCIUM ORAL Take by mouth. Unknown (patient-reported) cholecalciferol (VITAMIN D3) 10,000 unit tablet Take 10,000 Units by mouth daily. Unknown (patient-reported) levothyroxine (SYNTHROID, LEVOTHROID) 50 MCG tablet Take 1 tablet (50 mcg total) by mouth daily. 90tablet 3 Unknown (outside pharmacy) metroNIDAZOLE (METROCREAM) 0.75 % cream Apply topically 2 (two) times a day. Unknown (patient-reported) romosozumab-aqqg (EVENITY SUBQ) 2 shots/month Unknown (patient-reported) No current facility-administered medications for this visit. Social History Socioeconomic History Marital status: /Civil Union Spouse name: Not on file Number of children: Not on file Years of education: Not on file Highest education level: Not on file Occupational History Not on file Tobacco Use Smoking status: Never Passive exposure: Past Smokeless tobacco: Never Tobacco comments: secondhand smoke at home currently-not since divorce 08/30/22 Vaping Use Vaping status: never used Substance and Sexual Activity Alcohol use: Yes Comment: 1-2 drinks, monthly or less Drug use: Never Sexual activity: Not on file Comment: Other Topics Concern Not on file Social History Narrative Retired at 64 from, [employer] Housing. 2 sons. One in [place] and the other in [place]. Bachelor's in Career Development and Minor in [employer]i Literature. 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 Social Drivers of Health Residential Stability: Low Risk (05/06/2024) Residential Stability Family situation today data: I have housing Number of times moved in last year: Zero (I did not move) Family History Problem Relation Age of Onset Hypertension Mother Dementia Mother Heart attack Father Kidney disease Father Arrhythmia Sister Hyperlipidemia Sister Atrial fibrillation Sister Coronary artery disease Son Hypertension Son Overweight Son Colon cancer Nephew Liver cancer Nephew Lung cancer Nephew Vitals: 03/05/25 0933 BP: 108/60 Pulse: 60 Temp: 36.5 ??C (97.7 ??F) SpO2: 98% Physical Exam Retrognathia is present. Reduced oral cavity size. Mallampati score is 3-4. 1. Apnea Polysomnography 2. Snoring Polysomnography 3. Daytime sleepiness Assessment/Plan Combination of physical characteristics supportive of a diagnosis of SUNNY with witnessed snoring andwitnessed apneas and degrees of daytime sleepiness would support diagnosis of SUNNY. Will rule in or rule out with a diagnostic polysomnogram. Based on the patient's sleep review of systems, no other obvious sleep disorders. Patient follow-up after the study to review results. Therapy discussions will take place if indicated. Therapeutic options will be largely dependent on severity of SUNNY. Return in about 6 weeks (around 04/16/2025). 30 minutes on this consult including 20 minutes of [id number] time and 10 minutes of visit coordination of care documentation. documented in this encounter Plan of Treatment Upcoming Encounters Date Type Department Care Team (Late st Contact Info) Description 05/26/2025 12:00 PM EST Office Visit [facility] Pulmonary, Allergy and Critical Care Medicine [address] [place] [address] Fredy Villagomez MD [address] [address] [email or web address] documented as of this encounter Visit Diagnoses Diagnosis Apnea Snoring Other dyspnea and respiratory abnormality Daytime sleepiness documented in this encounter Additional Health Concerns Assessment Noted Time PHQ-2 Depression Total Score: 0 05/06/19 25 10:01 AM EST documented as of this encounter Care Teams Water Aerobics Instructor Relationship Specialty Start Date End Date Melissa Mendoza MD [address] [place] [phone] [email or web address] PCP - General Internal Medicine 06/07/23 Maximino Kirk MD Rheumatology 06/08/22 Melissa Mendoza MD [address] [place] [address] [email or web address] Insurance Assigned Provider 07/07/24 documented as of this encounter Additional Source Comments The information contained in this document represents components of the legal health record. It is not the complete legal health record.[facility]
--- NOTE | 2025-03-10 13:34 | A.OFFVIS_ITS ---
Vital Signs 03/10/25 13:36 Height 5 ft Weight 154 lb BMI 30.1 BP 149/68 H Blood Pressure Location Lt brachial Position Sitting Respiration 16 Pulse 71 Pulse Source Pulse Oximeter Pulse Oximetry (%) 97 Oxygen Delivery Method Room Air Intake Visit Reasons: Bilateral primary osteoarthritis of knee Long Wall Shear Operator Required: No Allergies Penicillins Allergy (Mild, Verified 03/10/25 13:36) Hives codeine Adverse Reaction (Mild, Verified 03/10/25 13:36) dry heaves Medication List - Last Reconciled 03/10/25 by Gunjan Cobb LPN calcium carbonate 500 mg PO DAILY cane As directed Dx: osteoarthritis bilateral knees. cholecalciferol (vitamin D3) 75 mcg PO DAILY levothyroxine 0.5 mcg PO DAILY HPI HPI Bilateral primary osteoarthritis of knee: Details: History of Present Illness The patient is an 79-year-old female presenting with bilateral knee pain for consideration of platelet-rich plasma (PRP) injections. Her right knee is worse than her left, with pain causing difficulty with stairs, squatting, and rising from a sitting position. Previous treatments included cortisone and gel injections, which have become less effective over time. She received Euflexxa in April, which provided initial improvement before the pain returned. She was evaluated by Dr. Richards in orthopedics for surgery, but he did not feel her symptoms warranted a knee replacement at her age and subsequently referred her for PRP injections. The patient reports taking levothyroxine and a topical medication for rosacea. She denies taking any blood thinners, aspirin, or anti- inflammatory medications and has no history of cancer or blood problems. Pain Description - Location: Bilateral knees, with the right being worse than the left. - Quality: Aching and stabbing sensation. - Severity: 5/10 when going up stairs and 10/10 when getting up from a sitting position. - Exacerbating Factors: Climbing stairs, squatting, and rising from a sitting position. Physical Exam - Appears afebrile. - Alert and oriented. - Mood and affect appropriate. - Follows and participates in conversation appropriately. - Respiratory effort is unlabored. Pain Management - Analgesia: The patient denies use of anti-inflammatory medications. - Activities of Daily Living: Pain interferes with climbing stairs, squatting, and getting up from a sitting position. - Affect: The patient is concerned about how her age might impact the effectiveness of platelet-rich plasma injections. - Aberrant Drug-Related Behaviors: No aberrant drug-related behaviors were noted. Physical Exam Vital Signs: Last Vital Signs Pulse 71 03/10/25 13:36 Resp 16 03/10/25 13:36 BP 149/68 H 03/10/25 13:36 Pulse Ox 97 03/10/25 13:36 Oxygen Delivery Method Room Air 03/10/25 13:36 BMI result Body Mass Index 30.1 Assessment & Plan Assessment & Plan (1) Osteoarthritis of knees, bilateral: Comment: Initially she had improvement in pain after Euflexxa 04/2024-05/2024 but then pain returned. PT has been helping with knee strengthening. She has failed cortisone injections in the past ([facility] records). She is having pain with activity. We discussed medical management of knee pain from osteoarthritis with gabapentin or duloxetine or geniculate nerve block. We also discussed recent data that suggests platelet rich plasma may provide more benefit than hyaluronic acid injection (PMID: [id number]). She would like to have surgical opinion about PRP versus alternative surgical options (arthroscopic procedures). She would like to delay knee replacement. We reviewed [facility]. Code(s): M17.0 - Bilateral primary osteoarthritis of knee Category: Medical Qualifiers: Osteoarthritis type: primary Qualified Code(s): M17.0 - Bilateral primary osteoarthritis of knee Plan Plan Patient was informed and verbally consented to the use of an ambient scribe for clinic note documentation during this visit. 1. Bilateral Knee Pain - The patient has bilateral knee pain secondary to osteoarthritis and is not considered a surgical candidate at this time. - She has failed conservative management with cortisone and gel injections. - Plan is to proceed with a platelet-rich plasma (PRP) injection to the left knee. - The procedure was explained in detail, noting it is a self-pay procedure c osting $750. - The patient was counseled on post-procedure expectations, including significant pain and stiffness for about one week, the need for a cross country truck driver home, and avoidance of NSAIDs. - It was explained that it can take up to 5-6 weeks to determine the efficacy of the injection. - The patient consented to proceed with scheduling the injection. Discussion Notes I discussed the diagnosis of bilateral knee pain with the patient, noting that prior treatments like cortisone and gel injections have lost effectiveness, and she is not a surgical candidate at this time. I explained the plan to proceed with a platelet-rich plasma (PRP) injection for her left knee. I detailed the procedure, which involves drawing her own blood, the platelets, and injecting them into the knee, explaining it is a self-pay procedure costing $750. I reviewed the expected post-procedure course, including significant pain and stiffness for about a week, and advised her to arrange for a cross country truck driver. I instructed her to avoid NSAIDs after the procedure, but that Tylenol is permissible. I informed her it may take 5-6 weeks to determine the effectiveness of the treatment. The patient verbalized understanding and agreed to proceed. Patient Instructions - You will be scheduled for a platelet-rich plasma (PRP) injection for your left knee. - On the day of your procedure, you will first come to this office to make a payment of $750, as this is not covered by insurance. - After payment, you will go to the procedure area across the street in the hospital for the injection. - Please arrange for someone to drive you home, as you should not drive after the procedure. - Expect your knee to be painful and stiff for about one week after the injection; this is normal. - You may take Tylenol for pain, but do not take any anti-inflammatory medications like ibuprofen (Advil), naproxen (Aleve), or meloxicam. - It may take five to six weeks to feel the full effects of the injection. Coding Level of Care Code New Pt Level 3 (43777) Diagnoses Primary osteoarthritis of both knees M17.0 Osteoarthritis type: primary
[2025-03-10 13:36] VITALS: BP 149/68; PULSE 71; RESP 16; O2SAT 97; BMI 30.1
--- OUTSIDE RECORDS SUMMARY | 2025-03-10 21:45 | XMS_ITS | Encounter Summary ---
Author Organization [facility] Address [address] [place] [address] Phone Care Team Providers Care Remedial Teacher Name Role Phone Giles Cassidy MD Unavailable Maximino Kirk MD Unavailable Magalie Villatoro NP Primary Care Provider [phone] Melissa Mendoza MD Primary Care Provider Melissa Mendoza MD Unavailable [phone] Encounter Details Date Type Department Care Team (Late st Contact Info) Description 12/20/2022 Procedure Pass [facility] - [address] [place] [address] Social History Tobacco Use Types Packs/Day Years [...] [facility] [address] [place] [address] Fredy Villagomez MD [address] [place] [address] [email or web address] documented as of this encounter Visit Diagnoses Not on filedocumented in this encounter Additional Health Concerns Infection Onset Date Last Indicated Resolved Time COVID-19 04/01/2023 04/01/2023 04/22/2023 1:21 AM EST Assessment Noted Time PHQ-2 Depression Total Score: 1 02/09/20 22 9:36 AM EST documented as of this encounter Care Teams Remedial Teacher Relationship Specialty Start Date End Date Magalie Villatoro NP [address] [place] [address] PCP - General Family Medicine 12/06/22 06/06/23 Melissa Mendoza MD [address] [place] [address] PCP - General Internal Medicine 06/07/23 Giles Cassidy MD [address] [place] [address] Insurance Assigned Provider 07/08/23 07/07/24 Maximino Kirk MD [address] [place] [address] Rheumatology 06/08/22 Melissa Mendoza MD [address] [place] [address], [address] [place] [address] [email or web address] Insurance Assigned Provider 07/07/24 documented as of this encounter Additional Source Comments The information contained in this document represents components of the legal health record. It is not the complete legal health record.[facility]
--- OUTSIDE RECORDS SUMMARY | 2025-03-10 21:45 | XMS_ITS | Encounter Summary ---
Author Organization [facility] Address [address] [place] [address] [place] [address] Phone Care Team Providers Care Mergers And Acquisitions Consultant Name Role Phone Gurvinder Margareth Arboleda CNP Unavailable Margareth Hollins CIGAR MAKING SUPERVISOR Primary Care Provider Giles Cassidy MD Unavailable [phone] Maximino Kirk MD Unavailable [phone] Magalie Villatoro BARREL COOPER Primary Care Provider [phone] Melissa Mendoza MD Primary Care Provider [phone] Melissa Mendoza MD Unavailable [phone] Encounter Details Date Type Department Care Team (Late st Contact Info) Description 12/06/2021 Procedure Pass [facility], [address] [place] [address] Social History Tobacco Use Types Packs/Day Years [...] [facility] [address] [place] [address] Fredy Villagomez MD [address] [place] [address] [email or web address] documented as of this encounter Visit Diagnoses Not on filedocumented in this encounter Additional Health Concerns Infection Onset Date Last Indicated Resolved Time COVID-19 04/01/2023 04/01/2023 04/22/2023 1:21 AM EST Assessment Noted Time PHQ-2 Depression Total Score: 0 02/09/20 9:51 AM EST documented as of this encounter Care Teams Mergers And Acquisitions Consultant Relationship Specialty Start Date End Date Margareth Hollins CNP [address] [place] [address] [email or web address] PCP - General Internal Medicine 07/03/20 12/05/22 Magalie Villatoro NP [address] [place] [address] [email or web address] PCP - General Family Medicine 12/06/22 06/06/23 Melissa Mendoza MD [address] [place] [address] [email or web address] PCP - General Internal Medicine 06/07/23 Margareth Hollins CNP [address] [place] [address] [email or web address] Medicine 07/03/20 06/07/22 Giles Cassidy MD [address] [place], [place] [email or web address] Insurance Assigned Provider 07/08/23 07/07/24 Maximino Kirk MD [address] [place] [address] Rheumatology 06/08/22 Melissa Mendoza MD [address] [place] [address], [address] [place] [address] [email or web address] Insurance Assigned Provider 07/07/24 documented as of this encounter Additional Source Comments The information contained in this document represents components of the legal health record. It is not the complete legal health record.[facility]
--- OUTSIDE RECORDS SUMMARY | 2025-03-10 21:46 | XMS_ITS | Clinical Summary ---
Author Organization [facility] Address [address] [facility] [address] [place] [address] Phone Care Team Providers Care Corporate Affairs Manager Name Role Phone Maximino Kirk MD Unavailable [phone] Melissa Mendoza A Primary Care Provider Melissa Mendoza MD Unavailable [phone] Allergies Active Allergy Reactions Criticality Noted Date Comments Codeine High 08/07/2020 Lactose 12/15/2021 Penicillins Rash High 08/07/2020 Medications romosozumab-aqq g (EVENITY SUBQ) 2 shots/month 3 Active CALCIUM ORAL Take by mouth. Active levothyroxine (SYNTHROID, LEVOTHROID) 50 MCG tabletIndicatio ns:Hypothyroidi sm, unspecified type Take 1 tablet (50 mcg total) by mouth daily. 90 tablet 3 5 Active metroNIDAZOLE (METROCREAM) 0.75 % cream Apply topically 2 (two) times a day. Active cholecalciferol (VITAMIN D3) 10,000 unit tablet Take 10,000 Units by mouth daily. Active ascorbic acid (VITAMIN C ORAL) Take by mouth. 03/05/20 25 Discontinu ed(No longer taking) Medication-Free Text EUFIXIA GEL 03/05/20 25 Discontinu ed(No longer taking) metroNIDAZOLE (METROGEL) 0.75 % (37.5mg/5 gram) vaginal gel Place vaginally daily as needed. 03/05/20 25 Discontinu ed(No longer taking) Active Problems Problem Noted Date Diagnosed Date Daytime sleepiness 03/05/2025 Hypopigmented skin lesion 05/04/2023 Sprain of lumbosacral [...] Encounters Date Type Department Care Team Description 03/05/2025 10:00 AM EST Office Visit [facility] [address] [place] [address] Fredy Villagomez MD Apnea; Snoring; Daytime sleepiness 03/05/2025 Telephone [facility] Pul[facility], Allergy and Critical Care Medicine [address] [place] [address] Fredy Villagomez MD Sleep Study (In lab at [facility]) 12/09/[address] [place] [address] Melissa Mendoza MD COVID-19 Inquiry from Last [...] IM 02/08/2021 Influenza, Unspecified Formulation 01/12,01/30/2008,02/20/2003,03/21 Novel [id number], Injectable 03/25/2009 Pneumococcal conjugate PCV13 12/15/2014 Pneumococcal [...] is your housing situation today? I have breanascottie maldonado 05/06/2024 How many times have you [...] F) 03/05/2025 9:33 AM EST Respiratory Rate 16 05/04/2023 9:08 AM EST Oxygen Saturation 98% 03/05/2025 9:33 AM EST Inhaled Oxygen Concentration - - Weight 75.3 kg (166 lb) 06/05/2024 7:46 PM EST Height 152.4 cm (5') 03/05/2025 9:33 AM EST Body Mass Index 32.42 06/05/2024 7:46 PM EST Plan of Treatment Upcoming Encounters Date Type Department Care Team (Late st Contact Info) Description 05/26/2025 12:00 PM EST Office Visit [facility] [address] [facility] [place] [address] Fredy Villagomez MD [address] [address] Health Maintenance Due Date Last Done Comments RSV VACCINE (1 - 1-dose 75+ series) 08/12/2019 INFLUENZA VACCINE (#1) 2024 , 01/30/2023, 01/30/2023, Additional history exists COVID-19 VACCINE (2024- season) 2024 05/10/2021, 04/12/2021 DEPRESSION SCREENING 05/06/2025 05/06/2024 TSH LEVEL 05/17/2025 05/17/2024, 04/2023, 02/14/2022, Additional history exists LIPID PANEL 05/17/2029 05/17/2024, 02/01, 02/14/2022, Additional history exists Adult Td,Tdap Booster 10/22/2033 10/23/2023 , 08/01/2012, 07/10/2002 PNEUMOCOCCAL VACCINES (50+ years) Completed 12/15/2014, 04/30/2010 ZOSTER VACCINES Completed 04/11/2018, 11/2017, 01/29/2007 OSTEOPOROSIS SCREENING INITIAL (ONE-TIME) Completed 05/06/2024, 02/25/2020 SMOKING STATUS SCREENING (Once After 26 Yrs) Completed 03/05/2025 HEPATITIS A VACCINES Aged Out No long [...] EST) TSH 3.08 0.27 - 4.20 uIU/mL [facility] Blood 05/17/2024 9:48 AM EST 05/17/2024 9:52 AM EST us Melissa A Reji [facility] BKR ORDERABLES [place] l Result Performing Organization Address City/[facility]/ZIP Co de Phone Number [address] [address] * (ABNORMAL) Lipid panel (05/17/2024 9:48 AM EST) HDL 61 mg/dL [facility] Comment: Interpretation <40 mg/dL: Low HDL cholesterol (major risk factor for CHD) Greater than or equal to 60 mg/dL: High HDL cholesterol ( negative risk factor for CHD) HDL - cholesterol is affected by a number of factors, e.g. smoking, excerise, hormones, sex and age. CHOLESTEROL 211 0 - 240 mg/dL [facility] TRIGLYCERIDES 75 30 - 160 mg/dL [facility] LDL 135(H) 50 - 129 mg/dL [facility] Comment: LDL levels in terms of risk for coronary heart disease: <100 mg/dL: Optimal 100-129 mg/dL: Near or above optimal 130-159 mg/dL: Borderline high 160-189 mg/dL: High >190 mg/dL: Very High CARDIAC RISK RATIO 3.5 3.3 - 4.4 C [facility] Blood 05/17/2024 9:48 AM EST 05/17/2024 9:51 AM EST us Melissa A Reji [facility] BKR ORDERABLES [place] l Result Performing Organization Address City/[facility]/ZIP Co de Phone Number [address] [address] * HM DEXA SCAN (05/06/2024 11:49 AM EST) us Historical Provider HEALTH MAINTENANCE Final Result from Last 3 Months or Most Recently Relevant to Health Maintenance Insurance MEDICARE PART A & B [facility] MEDICARE SUPPLEMENT MEDICARE PART A & B [facility] MEDICARE SUPPLEMENT MEDICARE PART A & B MEDICARE SUPPLEMENT MEDICARE PART A & B Member Subscriber Plan / Payer ( fective 2009-) Name:Nita Mcfarlane Member ID:[id number] Relation to Subscriber:Self Name:Nita Mcfarlane Subscriber ID:[id number] Payer ID:[id number] Group ID:Not on file Type:Medicare Address: Marley Spoon [address] MEDICARE SUPPLEMENT MEDICARE PART A & B MEDICARE SUPPLEMENT MEDICARE PART A & B MEDICARE SUPPLEMENT MEDICARE PART A & B MEDICARE SUPPLEMENT MEDICARE PART A & B MEDICARE SUPPLEMENT MEDICARE PART A & B [facility] MEDICARE SUPPLEMENT Care Teams Corporate Affairs Manager Relationship Specialty Start Date End Date Melissa Mendoza MD [address] [place] [address] [email or web address] PCP - General Internal Medicine 06/07/23 Maximino Kirk MD Rheumatology 06/08/22 Melissa Mendoza MD [address] [place] [address] [place] [address] [email or web address] Insurance Assigned Provider 07/07/24 Additional Source Comments The information contained in this document represents components of the legal health record. It is not the complete legal health record.[facility]
--- OUTSIDE RECORDS SUMMARY | 2025-03-10 21:46 | XMS_ITS | Encounter Summary ---
Author Organization [facility] Address [address] [place] [address] Phone Care Team Providers Care Grain Combiner Name Role Phone Giles Cassidy MD Unavailable Maximino Kirk MD Unavailable [phone] Melissa Mendoza MD Primary Care Provider Melissa Mendoza MD Unavailable [phone] Encounter Details Date Type Department Care Team (Late st Contact Info) Description 01/30/2024 Procedure Pass [facility] - [address] [place] [address] Social History Tobacco Use Types Packs/Day Years [...] [facility] [address] [place] [address] Fredy Villagomez MD [address] [place] [address] [email or web address] documented as of this encounter Visit Diagnoses Not on filedocumented in this encounter Additional Health Concerns Assessment Noted Time PHQ-2 Depression Total Score: 0 05/06/19 25 10:01 AM EST documented as of this encounter Care Teams Grain Combiner Relationship Specialty Start Date End Date Melissa Mendoza MD [address] [place] [address] [email or web address] PCP - General Internal Medicine 06/07/23 Giles Cassidy MD [address] [place] [address] Insurance Assigned Provider 07/08/23 07/07/24 Maximino Kirk MD [address] [place] [address] Rheumatology 06/08/22 Melissa Mendoza MD [address] [place] [address], 2[address] [place] [address] [email or web address] Insurance Assigned Provider 07/07/24 documented as of this encounter Additional Source Comments The information contained in this document represents components of the legal health record. It is not the complete legal health record.[facility]
--- OUTSIDE RECORDS SUMMARY | 2025-03-10 21:46 | XMS_ITS | Encounter Summary ---
Author Organization [facility] Address [address] [place] [address] [place] [address] Phone Care Team Providers Care Duct Installer Name Role Phone Gurvinder Margareth Arboleda CNP Unavailable [phone] Margareth Hollins DISK SHARPENER Primary Care Provider Giles Cassidy MD Unavailable [phone] Maximino Kirk MD Unavailable [phone] Magalie Villatoro AIR CARRIER OPERATIONS INSPECTOR Primary Care Provider [phone] Melissa Mendoza MD Primary Care Provider [phone] Melissa Mendoza MD Unavailable [phone] Encounter Details Date Type Department Care Team (Late st Contact Info) Description 02/07/2022 Procedure Pass [facility] - [address] [place] [address] Social History Tobacco Use Types Packs/Day Years [...] [facility] [address] [place] [address] Fredy Villagomez MD [address] [place] [address] documented as of this encounter Visit Diagnoses Not on filedocumented in this encounter Additional Health Concerns Infection Onset Date Last Indicated Resolved Time COVID-19 04/01/2023 04/01/2023 04/22/2023 1:21 AM EST Assessment Noted Time PHQ-2 Depression Total Score: 1 02/09/20 9:36 AM EST documented as of this encounter Care Teams Duct Installer Relationship Specialty Start Date End Date Margareth Hollins CNP [address] [place] [address] PCP - General Internal Medicine 07/03/20 12/05/22 Magalie Villatoro NP [address] [place] [address] PCP - General Family Medicine 12/06/22 06/06/23 Melissa Mendoza MD [address] [place] [address] PCP - General Internal Medicine 06/07/23 Margareth Hollins CNP [address] [place], [place] maria Internal Medicine 07/03/20 06/07/22 Giles Cassidy MD [address] [place], [place] [email or web address] Insurance Assigned Provider 07/08/23 07/07/24 Maximino Kirk MD [address] [place] [address] Rheumatology 06/08/22 Melissa Mendoza MD [address] [place] [address], [address] [place] [address] [email or web address] Insurance Assigned Provider 07/07/24 documented as of this encounter Additional Source Comments The information contained in this document represents components of the legal health record. It is not the complete legal health record.[facility]
--- OUTSIDE RECORDS SUMMARY | 2025-03-10 21:46 | XMS_ITS | Encounter Summary ---
Author Organization [facility] Address [address] [place] [address] Phone Care Team Providers Care Channel Executive Name Role Phone Giles Cassidy MD Unavailable [phone] Maximino Kirk MD Unavailable [phone] Melissa Mendoza MD Primary Care Provider [phone] Melissa Mendoza MD Unavailable [phone] Encounter Details Date Type Department Care Team (Late st Contact Info) Description 05/06/2024 Procedure Pass [facility], [address] [place] [address] Social History Tobacco Use Types Packs/Day Years [...] [facility] [address] [place] [address] [place] [address] Fredy Villagomez MD [address] [address] documented as of this encounter Visit Diagnoses Not on filedocumented in this encounter Additional Health Concerns Assessment Noted Time PHQ-2 Depression Total Score: 0 05/06/19 10:01 AM EST documented as of this encounter Care Teams Channel Executive Relationship Specialty Start Date End Date Melissa Mendoza MD [address] [place] [address] PCP - General Internal Medicine 06/07/23 Giles Cassidy MD [address] [place] [address] [email or web address] Insurance Assigned Provider 07/08/23 07/07/24 Maximino Kirk MD [address] [place] [address] Rheumatology 06/08/22 Melissa Mendoza MD [address] [place] [address] Insurance Assigned Provider 07/07/24 documented as of this encounter Additional Source Comments The information contained in this document represents components of the legal health record. It is not the complete legal health record.[facility]
--- OUTSIDE RECORDS SUMMARY | 2025-03-10 21:46 | XMS_ITS | Encounter Summary ---
Author Organization [facility] Address [address] [place] [address] [place] [address] Phone Care Team Providers Care Escrow Closer Name Role Phone Margareth Hollins CNP Unavailable Margareth Hollins INCLINOMETER TESTER Primary Care Provider Giles Cassidy MD Unavailable [phone] Maximino Kirk MD Unavailable Magalie Villatoro NET WASHER Primary Care Provider Melissa Mendoza MD Primary Care Provider [phone] Melissa Mendoza MD Unavailable [phone] Encounter Details Date Type Department Care Team (Late Contact Info) Description 02/11/2021 Ancillary Orders [facility],Outside Imaging [address] [place], [place] [id number] System, Provider Not In, [place] [address] Social History Tobacco Use Types Packs/Day Years [...] Department Care Team (Late Contact Info) Description 05/26/2025 12:00 PM EST Office Visit [facility] Pulmonary, Allergy and Critical Care Medicine [address] [place] [address] Fredy Villagomez MD [address] [place] [address] [email or web address] documented as of this encounter Results * [...] documented as of this encounter Care Teams Escrow Closer Relationship Specialty Start Date End Date Margareth Hollins CNP [address] [place] [address] [email or web address] PCP - General Internal Medicine 07/03/20 12/05/22 Magalie Villatoro NP [address] [place] [phone] [email or web address] PCP - General Family Medicine 12/06/22 06/06/23 Melissa Mendoza MD [address] [place] [address], 2nd [place] [address] [email or web address] PCP - General Internal Medicine 06/07/23 Margareth Hollins CNP [address] [place] [address] [email or web address] 07/03/20 06/07/22 Giles Cassidy MD [address] [place] [address] [email or web address] Insurance Assigned Provider 07/08/23 07/07/24 Maximino Kirk MD [address] [place] [phone] Rheumatology 06/08/22 Melissa Mendoza MD [address] [place] [address], 2nd [place] [address] [email or web address] Insurance Assigned Provider 07/07/24 documented as of this encounter Additional Source Comments The information contained in this document represents components of the legal health record. It is not the complete legal health record.[facility]
--- OUTSIDE RECORDS SUMMARY | 2025-03-10 21:46 | XMS_ITS | Encounter Summary ---
Author Organization [facility] Address [address] [facility] [address] [place] [address] Phone Care Team Providers Care Blending Coordinator Name Role Phone Maximino Kirk MD Unavailable [phone] Reji, Melissa A Primary Care Provider [phone] Melissa Mendoza MD Unavailable [phone] Reason for Visit * Reason Onset Date Comments Sleep Study 03/05/[address] [facility] Encounter Details Date Type Department Care Team ([facility] st Contact Info) Description 03/05/2025 Telephone [facility] Pulmonary, Allergy and Critical Care Medicine [address] [place] [address] Fredy Villagomez MD [address] [place] [phone] [email or web address] Sleep Study (In lab at [facility]) Social History Tobacco Use Types Packs/Day Years [...] as of this encounter Progress Notes * Alejandra Meredith - 03/05/2025 11:17 AM EST Faxed to [employer]: -SMS Service Requested Sheet -Referral/order for sleep study -Demographics -OV note with Dr. Villagomez -Dx info SMS service requested sheet and confirmation scanned into patient's chart * Alejandra Meredith - 03/05/2025 11:17 AM EST Images from the original note were not included. In-lab study at [facility]. Thank you Received: Today Fredy Villagomez MD Pfeffer, Laura documented in this encounter Plan of Treatment Upcoming Encounters Date Type Department Care Team ([facility] st Contact Info) Description 05/26/2025 12:00 PM EST Office Visit [facility] Pulmonary, Allergy and Critical Care Medicine [address] [place] [address] Fredy Vilalgomez MD [address] [place] [phone] [email or web address] documented as of this encounter Visit Diagnoses Not on filedocumented in this encounter Additional Health Concerns Assessment Noted Time PHQ-2 Depression Total Score: 0 05/06/19 25 10:01 AM EST documented as of this encounter Care Teams Blending Coordinator Relationship Specialty Start Date End Date Melissa Mendoza MD [address] [place] [address] [email or web address] PCP - General Internal Medicine 06/07/23 Maximino Kirk MD Rheumatology 06/08/22 Melissa Mendoza MD [address] [place] [phone] [email or web address] Insurance Assigned Provider 07/07/24 documented as of this encounter Additional Source Comments The information contained in this document represents components of the legal health record. It is not the complete legal health record.[facility]
--- OUTSIDE RECORDS SUMMARY | 2025-03-10 21:46 | XMS_ITS | Encounter Summary ---
Author Organization [facility] Address [address] [facility] [address] [place] [address] Phone Care Team Providers Care Fleecer Name Role Phone Giles Cassidy MD Unavailable Maximino Kirk MD Unavailable [phone] Magalie Villatoro PRODUCER ASSISTANT Primary Care Provider Melissa Mendoza MD Primary Care Provider Melissa Mendoza MD Unavailable Encounter Details Date Type Department Care Team (Late st Contact Info) Description 12/20/2022 Transcribe Orders Virtual Department [address] [place] [address] Magalie Villatoro, PRODUCER ASSISTANT [address] [facility] [address] [place] [address] [email or web address] Breast screening (Primary Dx) Social History Tobacco [...] Upcoming Encounters Date Type Department Care Team ([facility] st Contact Info) Description 05/26/2025 12:00 PM EST Office Visit [facility] Pulmonary, Allergy and Critical Care Medicine [address] [place] [address] [place] [address] Fredy Villagomez MD [address] [place] [phone] documented as of this encounter Results * [...] documented as of this encounter Care Teams Fleecer Relationship Specialty Start Date End Date Magalie Villatoro PRODUCER ASSISTANT [address] [place] [phone] PCP - General Family Medicine 12/06/22 06/06/23 Melissa Mendoza MD [address] [place] [address], 2[address] [place] [address] PCP - General Internal Medicine 06/07/23 Giles Cassidy MD [address] [place] [phone] Insurance Assigned Provider 07/08/23 07/07/24 Maximino Kirk MD [address] [place] [phone] Rheumatology 06/08/22 Melissa Mendoza MD [address] [place] [address], 2[address] [place] [address] [email or web address] Insurance Assigned Provider 07/07/24 documented as of this encounter Additional Source Comments The information contained in this document represents components of the legal health record. It is not the complete legal health record.[facility]
--- OUTSIDE RECORDS SUMMARY | 2025-03-10 21:46 | XMS_ITS | Encounter Summary ---
Author Organization [facility] Address [address] [place] [address] [place] [address] Phone Care Team Providers Care Family And Consumer Sciences Professor Name Role Phone Gurvinder Margareth Arboleda CNP Unavailable Margareth Hollins GREENSKEEPER SUPERVISOR Primary Care Provider Giles Cassidy MD Unavailable [phone] Maximino Kirk MD Unavailable Magalie Villatoro TESTING DIRECTOR Primary Care Provider Melissa Mendoza MD Primary Care Provider [phone] Melissa Mendoza MD Unavailable [phone] Encounter Details Date Type Department Care Team (Late Contact Info) Description 02/08/2021 Procedure Pass [facility] - [address] [place] [address] Social History Tobacco Use Types Packs/Day Years [...] Pulmonary, Allergy and Critical Care Medicine [address] [place], [place] [phone] Fredy Villagomez MD [address] [place] [address] [email or web address] documented as of this encounter Visit Diagnoses Not on filedocumented in this encounter Additional Health Concerns Infection Onset Date Last Indicated Resolved Time COVID-19 04/01/2023 04/01/2023 04/22/2023 1:21 AM EST Assessment Noted Time PHQ-2 Depression Total Score: 0 02/09/20 9:51 AM EST documented as of this encounter Care Teams Family And Consumer Sciences Professor Relationship Specialty Start Date End Date Margareth Hollins CNP [address] [place] [address] [email or web address] PCP - General Internal Medicine 07/03/20 12/05/22 Magalie Villatoro NP [address] [place] [phone] [email or web address] PCP - General Family Medicine 12/06/22 06/06/23 Melissa Mendoza MD [address] [place] [phone] [email or web address] PCP - General Internal Medicine 06/07/23 Margareth Hollins CNP [address] [place] [address] [email or web address] 07/03/20 06/07/22 Giles Cassidy MD [address] [place] [address] Insurance Assigned Provider 07/08/23 07/07/24 Maximino Kirk MD [address] [place] [address] Rheumatology 06/08/22 Melissa Mendoza MD [address] [place] [address], 2[address] [place] [address] [email or web address] Insurance Assigned Provider 07/07/24 documented as of this encounter Additional Source Comments The information contained in this document represents components of the legal health record. It is not the complete legal health record.[facility]
== END 2025-03-10 14:15 | disposition home or self-care (01) ==
LOC: HO.PMC 13:00
PROVIDERS: Referring Provider Physician Assistant; Visit Provider Internal Medicine
DX: M17.0 Bilateral primary osteoarthritis of knee (principal)
CPT/HCPCS: 99203

== ENCOUNTER → 2025-03-10 12:59 | Outpatient (BNVA) | payer MEDICARE, OTHER, SELFPAY | PROVIDERS: Referring Provider Physician Assistant; Visit Provider Internal Medicine | DX: M17.0 Bilateral primary osteoarthritis of knee (principal) | CPT/HCPCS: 99202 ==